=== PATIENT | female | born 1945 | race Caucasian/White ===

== ENCOUNTER 2022-08-26 17:19 | Inpatient (IN) | payer MEDICARE ==
[~2022-08-26] VITALS: Ht 152.4 cm; Wt 92.1 kg
[2022-08-26] MEDS ORDERED: OXYCODONE HCL5 MG PO (17:40)
[2022-08-26] MEDS ORDERED: TORSEMIDE20 MG PO (17:42)
[2022-08-26] MEDS ORDERED: PREGABALIN100 MG PO (17:42)
[2022-08-26] MEDS ORDERED: MIRTAZAPINE15 MG PO (17:42)
[2022-08-26] MEDS ORDERED: POTASSIUM CHLO20 ME2 PO (17:43)
[2022-08-26] MEDS ORDERED: ARIPIPRAZOLE2 MG PO (17:43)
[2022-08-26] MEDS ORDERED: MELOXICAM15 MG PO (17:43)
[2022-08-26] MEDS ORDERED: VENLAFAXINE HC150 MG PO (17:43)
--- NOTE | 2022-08-26 23:03 | EKG ---
[facility] [address] [facility] [place] [address] Signed Normal sinus rhythm with sinus arrhythmia Normal ECG No previous ECGs available Confirmed by Lorena Holland MD () on 08/26/2022 11:03:22 PM Electronically Signed By: LORENA HOLLAND MD 08/26/222302 PATIENT NAME: MELODY COSME Electrocardiogram DATE OF : 47 PHYSICIAN: LORENA HOLLAND MD REPORT #: [id number] REPORT IS CONFIDENTIAL AND NOT TO BE RELEASED WITHOUT AUTHORIZATION
--- NOTE | 2022-08-26 23:45 | NUR ---
PT BROUGHT TO ROOM VIA STRETCHER BY BO REYES. BO KRUSE IN ROOM TO DOCUMENT QUICK ADMIT AND ASSIST WITH MOVING PT FROM STRETCHER TO BED. PT ARRIVED ON 2L NC WITH O2 SATS AT 95%. 08/27/22 0045 ASSESSMENT COMPLETE. LUNG SOUNDS CLEAR IN KRYSTINA. RUL AND RLL CRACKLES. DIMINISHED IN RLL AND LLL. BOWEL TONES ACTIVE. PT REPORTS PAIN 10/10 IN LEFT LEG STATES "LEG IS NUMB." PRN TYLENOL ADMINISTERED. TYLENOL GIVEN 1 AT A TIME AND PT SPIT OUT THE FIRST TYLENOL AND STATED "I CANNOT SWALLOW THAT." CRUSHED TYLENOL AND ADMINISTERED IN APPLE SAUCE. PT O2 SATS DROPPED TO 89%. INCREASED O2 TO 4L NC AND PTs O2 SATS INCREASE TO 94%. PT STATES "I DO NOT KNOW" WHEN ASKED WHAT MONTH IT IS. PT REPORTS NEEDING TO USE RESTROOM, BED JAQUEZ PLACED UNDER PT. PT EDUCATED ON BED JAQUEZ AND TOLD SHE CAN PEE ON THE BED JAQUEZ. PT CONTINUES TO STATE "I NEED TO GET UP AND GO TO THE BATHROOM," CONTINUED TO EDUCATE PT ON BED JAQUEZ AND THAT IT IS OKAY TO PEE IN THE BED JAQUEZ. PT DOES NOT VOID, BED JAQUEZ REMOVED. ATTENDS PLACED. REDNESS NOTED TO GROIN AND UNDER PANUS. PRN MELATONIN ADMINISTERED, CRUSHED IN APPLE SAUCE, SEE NOV. TELE 2 ON PT FOR CONTINUOUS PULSE OX. NO OTHER NEEDS IDENTIFIED AT THIS TIME. CALL LIGHT IN REACH. EDUCATION NUMERICAL ANALYSIS GROUP MANAGER LIGHT USE PROVIDED, PT DEMONSTRATES UNDERSTANDING. BED ALARM ON.
--- NOTE | 2022-08-27 00:16 | NUR ---
pt ARRIVES TO MS FLOOR VIA STRETCHER. AIRBORNE PRECUATIONS IN PLACE. pt ON 2L OXYGEN BY NC, TITRATED TO 3L OXYGEN TO MAINTAIN SATURATIONS >92%. pt CONFUSED. KEEPS QUESTIONING RNS "I DON'T KNOW WHAT YOU NEED ME TO DO". ASSISTED TO BED JAQUEZ FOR VOID, pt UNABLE TO VOID. FREQUENT REMINDERS THAT pt IS ON BED JAQUEZ. PRIMARY RN VIOLETA IN ROOM ASSESSING pt. pt SHAKING, HOLDING LEFT LEG, THIGH AREA, STATES "MY LEGS HURT SO BAD". UPDATED, NEW ORDERS RECEIVED AND REPEATED BACK TO VERIFY. BED ALARM ON FOR SAFETY.
--- NOTE | 2022-08-27 02:19 | NUR ---
SPO2 NOTED AT 80% ON TELE 2 CPOX. pt HAS OXYGEN OFF AT THIS TIME, 4L NC REAPPLIED. RT IN pt ROOM ADHERING NC. pt REPOSITIONED WITH 2PA HIGHER IN BED, PILLOW UNDER LEFT HIP. pt HAS NO C/O PAIN AT THIS TIME. DRINK OF WATER PROVIDED. CALL LIGHT IN REACH. BED ALARM ON.
--- NOTE | 2022-08-27 05:35 | NUR ---
IN ROOM TO ROUND ON PT. UPON ENTERING ROOM PTs NC IS OFF. NC PLACED BACK ON PT. O2 SATS AT 96%. LAB IN ROOM WITH PT DRAWING BLOOD. PT STATES "I NEED TO THROW UP." EMESIS BAG PROVIDED FOR PT. PRN ZOFRAN ADMINISTERED, SEE MAR. PT SHAKING, WARM BLANKETS PROVIDED. VITALS COMPLETE. NO URINE OUTPUT NOTED. BLADDER SCAN SHOWED 583ML. PT REPORTS NO OTHER NEEDS AT THIS TIME. CALL LIGHT IN REACH. BED ALARM ON.
--- NOTE | 2022-08-27 05:50 | NUR ---
THIS RN CALLED DR. HOLLAND TO NOTIFY OF PT NOT HAVING ANY URINE OUTPUT SINCE ARRIVING TO UNIT. NEW ORDERS RECEIVED. VERIFIED WITH READBACK.
--- NOTE | 2022-08-27 06:15 | NUR ---
IN WITH BO WILEY TO PLACE CRUZ. DORCAS LORA IN TO ASSIST. BO WILEY USED STERILE TECHNIQUE TO PLACE CRUZ. FIRST ATTEMPT DID NOT GO INTO THE BLADDER. LEFT CRUZ TO VISULAIZE FOR SECOND CRUZ ATTEMPT. BO WILEY AGAIN USED STERILE TECHNIQUE AND SUCCESSFULLY PLACED CRUZ CATHETER. FIRST CRUZ REMOVED. WIPES TO CLEAN AREA AFTER PLACEMENT. NO OTHER NEEDS FROM THIS RN. BO WILEY AND DORCAS LORA IN ROOM WITH PT CLEANING UP.
--- NOTE | 2022-08-27 08:30 | NUR ---
PT RESTING IN BED WITH EYES CLOSED. RESPIRATIONS EVEN AND UNOLABORED. 4L NC O2 , O2 SAT 95%. CALL LIGHT IN REACH, BED ALARM ON.
--- NOTE | 2022-08-27 08:31 | NUR ---
PT RESTING IN BED WITH EYES CLOSED, RESPIRATIONS EVEN AND UNLABORED. O2 4L NC, O2 SAT 99%. CALL LIGHT IN REACH. BED ALARM ON.
--- NOTE | 2022-08-27 09:28 | NUR ---
MORNING ASSESSMENT COMPLETE. PT LYING AWAKE IN BED, UNABLE TO FOLLOW INSTURCTIONS TO SIT UP IN BED. PT ORIENTED TO FIRST NAME ONLY. FORGETFUL. PT TAKE O2 NC OUT OF NOSE, NEEDS CONTINUED REINFORCEMENT AND EDUCATION. SHAISTA HEARD AT LUNG BASES, PT ON 4LNC O2 SAT 92%, TITRATED TO 3L O2 SAT TO 88%, BACK UP TO 4L. CRUZ DRAINING CLEAR YELLOW URINE. PT DENIES PAIN OR NEEDS AT THIS TIME. CALL LIGHT IN REACH, INSTRUCTED ON USE. BED ALARM ON.
--- NOTE | 2022-08-27 11:15 | NUR ---
Pt states she lives in a house, but is unable to remember her address. She states she uses a walker and has steps but is unsure of how many. She does not recognizer her emergency contact, Janet's name, but states her nephew is Richard. Per nephew pt is weak and normally does well on her own. She is confused and not been able to care for herself due to covid. Nephew is also ill with the flu. No plan for dc of this pt at this time. Will fu with pt to determine needs when she is more cognitive.
--- NOTE | 2022-08-27 11:44 | NUR ---
PT AWAKE IN BED. O2 SAT 97% ON 4L NC. PT DENIES NEEDS AT THIS TIME. CALL LIGHT IN REACH. BED ALARM ON.
--- NOTE | 2022-08-27 12:45 | NUR ---
PT SITTING UP IN BED, EATING LUNCH. TOOK O2 OFF, O2 SAT 87%. O2 ON AT 4L NC, O2 SAT 95%. REMINDED PT TO KEEP O2 ON. CALL LIGHT IN REACH. BED ALARM ON.
--- NOTE | 2022-08-27 15:35 | NUR ---
PT CONTINUES TO BE ORIENTED TO FIRST NAME ONLY. PT UNABLE TO FOLLOW CONVERSATION. CRACKLES HEARD IN LUNG BASES. PT REMAINS ON 4L NC, O2 SAT 92%. CALL LIGHT IN REACH. BED ALARM ON.
--- NOTE | 2022-08-27 19:15 | NUR ---
RECEIVED REPORT FROM KAITLIN SORIANO. PT RESTING IN BED W/EYES CLOSED RESPIRATIONS ARE EVEN AND UNLABORED. PT RECEIVING 3 L O2 VIA NC. NO SIGNS OF DISTRESS. CALL LIGHT WITHIN REACH.
--- NOTE | 2022-08-27 19:30 | NUR ---
IN PT ROOM D/T REMOVAL OF NC. REPOSITIONED IN PT NOSE. REORIENTED PT TO LOCATION, EVENT. PT STATES VERBAL UNDERSTANDING. CALL LIGHT WITHIN REACH.
--- NOTE | 2022-08-27 20:02 | NUR ---
IN PT ROOM D/T REMOVAL OF NASAL CANNULA. REORIENTED PT TO LOCATION AND EVENT AND REASON FOR O2 NEED. PT STATED VERBAL UNDERSTANDING. CALL LIGHT WITHIN REACH.
--- NOTE | 2022-08-27 22:00 | NUR ---
CALLED MD TO UPDATE ON RESTLESS, AGITATION, AND ANXIETY OF PT D/T O2 DELIVERY DEVICE AND NOT TOLERATING OXIMASK OR NC AT THIS TIME. PT REFUSES TO EVEN DO BLOW BY METHOD. PT STATES "I JUST CANT, I JUST CANT!". MD PUT IN NEW ORDERS.
--- NOTE | 2022-08-27 22:30 | NUR ---
pt IS BECOMING MORE RESTLESS AND ATTEMPTING TO GET OOB, BED ALARM REMAINS ON FOR SAFETY. pt ALSO KEEPS REMOVING HER NASAL CANNULA AND DESATS INTO THE LOW 80'S ON RA. PRIMARY RN EL ALREADY ON PHONE AND UPDATING MD. PRN ATIVAN GIVEN PER REQUEST OF PRIMARY RN, 0.5MG GIVEN-SEE EMAR. DOSE AND MED VERIFIED BY SECOND RN MIRIAM. IV SITE WNL. BED ALARM REMAINS ON FOR SAFETY AND CALL LIGHT IN REACH. BEDSIDE CPOX ALSO REMAINS IN PLACE. SPO2 LOW TO MID 90'S, HR WNL. pt IS BECOMING MORE RELAXED. WILL CONTINUE TO MONITOR, CALL LIGHT IN REACH. pt REMAINS IN VIEW OF RN STATION.
--- NOTE | 2022-08-28 00:16 | NUR ---
pt RESTING IN BED, EYES CLOSED. RR EVEN AND UNLABORED, NO DISTRESS NOTED. 3LNC REMAINS IN PLACE. BED ALARM ON AND CALL LIGHT IN REACH. pt REMAINS IN VIEW OF RN STATION.
--- NOTE | 2022-08-28 01:15 | NUR ---
PT RESTING W/EYES CLOSED. RESPIRATIONS ARE EVEN AND UNLABORED, NO SIGNS OF DISTRESS. CALL LIGHT WITHIN REACH, BED ALARM ON. 3L OF NC OF O2, PT TOLERATING WELL AT THIS TIME.
--- NOTE | 2022-08-28 03:30 | NUR ---
IN PT ROOM D/T CPOX ALARMING FROM REMOVAL OF NC. PT DOES NOT TOLERATE NC OR OXIMASK. HAND PUSHED AWAY EVEN USING BLOW BY METHOD. PT STATES "I JUST CAN'T". PT CONTINUES TO REMOVE NC AND SHAKE HEAD WHEN TRYING TO REPLACE. PRN ATIVAN ADMINISTERED AT THIS TIME (SEE EMAR). IV SITE WNL. NO ACUTE CHANGES FROM PREVIOUS ASSESSMENT. LUNGS ARE DIM THROUGHOUT WITH CRACKLES HEARD IN LOWER LOBES BILAT AND RUL. KRYSTINA IS CLEAR. PT REPORTS NO PAIN, NAUSEA, DIZZINESS, SOB AT THIS TIME. PILLOWS PLACED UNDER HIPS BILAT FOR FLOATING. CALL LIGHT WITHIN REACH. CPOX IN PLACE. NC IN PLACE DELIVERING O2 AT 3L W/ O2 SATS AT 91%.
--- NOTE | 2022-08-28 05:10 | NUR ---
PT RESTING W/EYES CLOSED. RESPIRATIONS ARE EVEN AND UNLABORED, NO SIGNS OF DISTRESS. CALL LIGHT WITHIN REACH. 3L NC IN PLACE. CPOX IN PLACE. PT APPEARS COMFORTABLE AT THIS TIME.
--- NOTE | 2022-08-28 07:15 | NUR ---
pt ATTEMPTING TO CRAWL OOB AND REFUSES TO LEAVE O2 NC IN PLACE, THIS RN ATTEMPTED TO REDIRECT AND REORIENT pt MULTIPLE TIMES. PRN ATIVAN- 0.5MG IV GIVEN, SEE EMAR. BED ALARM ON AND CALL LIGHT IN REACH. pt REMAINS AT RN STATION. IV SITE WNL. MED AND DOSE VERIFIED WITH SECOND RN RUSSELL.
--- NOTE | 2022-08-28 07:30 | NUR ---
PT. CONTINUES TO BE RESTLESS AND CONSTANTLY REMOVING O2 NC. O2 SAT DROPS TO 82% ON RA. TITRATED ATIVAN DOSE. CPOX IN PLACE. BED ALARM ON AND CURTAIN OPEN.
--- NOTE | 2022-08-28 10:49 | NUR ---
PT. IS UP IN THE CHAIR WITH ALARM ON. CONTINUES TO REMOVE OXYMASK FREQUENTLY. CPOX IN PLACE AND O2 SAT IS 91% AT THIS TIME. WILL CONTIUE TO MONITOR.
--- NOTE | 2022-08-28 15:00 | NUR ---
THIS NURSE IN THE ROOM SEVERAL TIMES TO ASSIST PT. WITH O2 MASK. SHE REFUSES TO WEAR MASK AND IS RESTLESS. INCREASED EXPRESSIVE APHASIA. NIH STROKE ASSESSMENT COMPLETED AND BLOOD GLUCOSE OF 123. CALLED AND UPDATED. NEW LAB AND CT ORDERED. WILL CONTINUE TO MONITOR.
--- NOTE | 2022-08-28 18:11 | NUR ---
THIS RN TO ROOM TO ASSIST WITH IV START. IV STARTED TO RIGHT FORARM PER PROTOCOL. BLOOD RETURN NOTED, FLUSHES WELL. IV INFUSION RESTARTED BY CHIRAG RN, SEE NOV. PT TOLERATED PROCEEDURE WELL. PTS PRIMARY RN UPDATED. NO ADDITIONAL NEEDS AT THIS TIME. CALL LIGHT WITHIN REACH. BED RAILS UP. BED ALARM ON.
--- NOTE | 2022-08-28 19:51 | NUR ---
Pt ARRIVED TO UNIT FROM MS UNIT. PT IS CONFUSED. OXYMASK ON 8L SPO2 96%. HR 112 AFIB. BED ALARMS ON.
--- NOTE | 2022-08-28 22:03 | NUR ---
PT READJUSTED IN BED. CONTINUES TO BE ANXIOUS AND REMOVES OXYMASK. BED ALARM ON.
--- NOTE | 2022-08-28 22:12 | EKG ---
[facility] [address] [facility] [place] [address] Signed Atrial fibrillation with rapid ventricular response Low voltage QRS Nonspecific ST and T wave abnormality Abnormal ECG When compared with ECG of 26-AUG-2022 17:45, Atrial fibrillation has replaced Sinus rhythm Nonspecific T wave abnormality, worse in Inferior leads Nonspecific T wave abnormality now evident in Lateral leads Confirmed by Lorena Holland MD () on 08/28/2022 10:12:03 PM Electronically Signed By: LORENA HOLLAND MD 08/28/222211 PATIENT NAME: MELODY COSME Electrocardiogram DATE OF : 47 PHYSICIAN: LORENA HOLLAND MD REPORT #: [id number] REPORT IS CONFIDENTIAL AND NOT TO BE RELEASED WITHOUT AUTHORIZATION
--- NOTE | 2022-08-28 22:51 | NUR ---
PT AGITATED AND RESTLESS. TELE LEADS AND OXYGEN PULLED OFF. CRUZ STAT LOCK HAD BEEN PULLED OFF. LEADS, O2, AND STAT LOCK REAPPLIED. PT REPOSITIONED IN BED.
--- NOTE | 2022-08-28 23:40 | NUR ---
PT ASSESSEMENT COMPLETED. PT IS AGITATED/ANXIOUS PRN ATIVAN GIVEN. REPOSTIONED IN BED. CONINUTES TO PULL OFF ALL LINES AND OXYGEN. REQUIES FREQUENT REDIRECTING AND REORIENTATION.
--- NOTE | 2022-08-29 01:15 | NUR ---
ROUNDED ON PT. APPEARS TO BE SLEEPING COMFORTABLY. RESTING HR 75-85. CURRENTLY ON RA SPO2 97%. BED ALARMS ON. CALL LIGHT WITHIN REACH.
--- NOTE | 2022-08-29 01:59 | NUR ---
PT RESTLESS, AGITATED, PULLING HER GOWN OFF AND RESTLESS IN BED PULLING ON HER ECG LEADS AND PULLING OFF OXYGEN, SHE GRIPPED HER GOWN AND WOULD NOT LET GO PULLING AT STAFF. PT HEART RATE UP TO 154 BEATS A MINUTE, LOPRESSOR SCHEDULED ADMINISTERED AND 1MG IV HALDOL ADMINISTERED. HR NOW 94/MIN.
--- NOTE | 2022-08-29 02:27 | NUR ---
TO PT ROOM FOR AGITATION AND AXIETY. PT IS PULLING LEADS AND OXYGEN OFF. PT READJUSTED IN BED. ADMINISTERED PRN PAIN MEDICATION.
--- NOTE | 2022-08-29 02:52 | NUR ---
PT AGITATED PULLING LINES AND OXYGEN OFF. READJUSTED IN BED. GOWN CHANGED. LINES AND OXYGEN REAPPLIED.
--- NOTE | 2022-08-29 03:51 | NUR ---
PT ASSESSMENT COMPLETED. PT CONTINUES TO BE CONFUSED AND ANXIOUS. REQUIRES CONTINUOUS REORIENTATION AND REAPPLYING OXYGEN AND LEADS.
--- NOTE | 2022-08-29 04:14 | NUR ---
PRN ATIVAN GIVEN FOR AGITATION/ANXIETY. REPOSITIONED IN BED. LINES READJUSTED.
--- NOTE | 2022-08-29 04:30 | NUR ---
NOTIFIED OF PT CONTINUED AGITATION AND CONFUSION OVER NIGHT AND PT W/O SLEEP. HOME MEDICATIONS WERE DISCUSSED AND VO GIVEN TO ADD THREE OF HER HOME PO MEDICATIONS. REMERON AND EFFEXOR GIVEN. NEENA HELD ATT DUE TO AVAILABILITY OF DOSE PER PHARMACY.
--- NOTE | 2022-08-29 08:07 | NUR ---
ASSESSMENT COMPLETED, ALL LEADS AND MONITORS PLACED BACK ON PT AT THIS TIME. DR CAME INTO SEE PT
--- NOTE | 2022-08-29 08:30 | NUR ---
PT HAS SETTLED DOWN AT THIS TIME, BUT AT TIMES SHE WILL PULL ALL MONITORS OFF. CURRENTLY SHE APPEARS TO BE RESTING SPO2 95%. STILL UNABLE TO OBTAIN A BP ON HER DUE TO SHE WILL PULL THE CUFF OFF. REMAINS IN ISOLATION DUE TO COVID+.
--- NOTE | 2022-08-29 09:35 | NUR ---
o2 decreased to 45l's via oxy mask. catheter care completed.
--- NOTE | 2022-08-29 14:48 | NUR ---
pt contioues to sleep and rest comfotable at this time. Precedex drip decreased to 0.1mcg/kg/hr at this time. due to pt's heart rate is in the 60's to 70's. spo2 pp% via 5l's om.
--- NOTE | 2022-08-29 16:46 | NUR ---
PT REMAINS ON PRECEDEX DRIP AWAKENS WHEN MOVED ABOUT THE BED, REMAIN I A-FIB FOR AT THIS TIME, BUT IS RATE CONTTROLED. SPO2 96% ON 5L'S OXYMASK. PT WAS REMOSITIONED TO HER BACK AND FRESH DRAWEL SHEET AND WHITE PADS PLACED. PT WAS PROVIDED 2 WARM BLANKETS, AND REMAINS WITHOUT A PT GORWN ON DUE TO SHE PULLS AT THEM. CRUZ CATHETER REMAINS INPLACE DRAINING YELLOW IN COLOR URINE.
--- NOTE | 2022-08-29 17:53 | NUR ---
PT REMAINS ASLEEP AT THIS TIME, AWAKENS WHEN SPOKEN TWO OPENS EYES, THEN CLOSES THEM.
--- NOTE | 2022-08-29 18:18 | NUR ---
PT IS RESTLESS AND PULLING OFF HER MONITOR LEADS AT THIS TIME, HAS OXYMASK ON FORHEAD AT THIS TIME. PRECEDEX DRIP INCREASED TO 0.2MCG/KG/HR.
--- NOTE | 2022-08-29 18:34 | NUR ---
pt awake, gave some ensure at this time. she pulled all of the leads of and then commercial real estate underwriter reattached them.
--- NOTE | 2022-08-29 19:11 | NUR ---
pt woke up and was pulling off all leads and climbing out of bed. two staff in room haldol 1mg ivp given, 1mg ativan ivp given and precedex drip increased to 0.3mcg/kg/hr. pt was also given her pain pill 5mg oxy. pt took meds with pudding and did chew her meds. pt settled down and leads, o2 remain in place at this time. spo2 96% oxymask 5l's hear rate increased to the 140's when she was trying to climb out of bed so gave her 20:00 does of lopressor 5mg ivp alana and hear rate decreased to the high 80's tonja in a-fib
--- NOTE | 2022-08-29 19:38 | NUR ---
PT RESTOMG COMFORTABLY IN BED WITH A RASS OF -2. BED ALARM SET, AND NURSE CALL LIGHT PLACED BY PATIENT. PT WITH NORMAL WORK OF BREATHING AND COMPLAINT WITH OXYGEN. V/S REASSESSED, PT WITH WITH CONTINUED A-FIB. RATE IN THE 50S.
--- NOTE | 2022-08-29 23:12 | NUR ---
PT RESTING COMFORTABILY IN BED WITH A RASS OF -2. O2 DEMANDS UNCHANGED.
--- NOTE | 2022-08-30 07:30 | NUR ---
SHIFT REPORT REEIVED FROM TATO SORIANO. PT RESTING IN BED, EYES CLOSED. RR EVEN, UNLABORED. PRECEDEX @ 0.3 MCG/KG/HR. CPOX 92% ON 5L OXYMASK. HR AFIB @ 70. CRUZ WNL. RAILS UP, BED ALARM ON, CALL LIGHT IN REACH.
--- NOTE | 2022-08-30 08:00 | NUR ---
SCHEDULED MEDS PROVIDED. NO OTHER NEEDS AT THIS TIME. CALL LIGHT IN REACH, RAILS UP, BED ALARM ON.
--- NOTE | 2022-08-30 09:08 | NUR ---
ASSESSMENT, VS AND I&O COMPLETED. PT WAKES TO VOICE, IS CONFUSED, SLOW TO RESPOND. DISORIENTED TO ALL BUT FOLLOWS SOME COMMANDS. LUNGS DIM IN LOWER LOBES AND CRACKLES IN UPPER LOBES. PT HAS AN OCCASSIONAL, NONPRODUCTIVE COUGH. PT TAKES ORAL MEDS WITH PUDDING THEN CHEWS THE MED. ABD SOFT, NONTENDER, BOWEL TONES ACTIVE. ORAL FLUIDS PROVIDED WITHOUT STRAW, 50CC WATER. UPPER EXTREMTIIES CMS INTACT, LOWER EXTREMITIES HAVE WEAKNESS, PULSE AND SENSORY INTACT. TRACE BLE EDEMA NOTED. SKIN WARM, DRY, APPROPRIATE COLOR, SCATTERED BRUISING. LEFT ARM IVs WNL, CDI, FLUSHED WELL. HEART TONES IRREGULAR, AFIB @ 70. SPO2 95% ON 5L OXYMASK, PT PULLS MASK DOWN ONTO MOUTH AT TIMES. NO OTHER NEEDS AT THIS TIME. RAILS UP, BED ALARM ON, CALL LIGHT IN REACH.
--- NOTE | 2022-08-30 10:16 | NUR ---
PT HAS PULLED OXYMASK OFF, REPLACED BY MELCHOR SORIANO. PT RESTING IN BED, EYES CLOSED. RR EVEN, UNLABORED. SPO2 96% ON 5L OXYMASK. HR AFIB @ 76. NO OTHER NEEDS AT THIS TIME. CALL LIGHT IN REACH.
--- NOTE | 2022-08-30 11:08 | NUR ---
PT RESTING IN BED, EYES CLOSED. PT WAKES TO VOICE. PT DRANK 40ML WATER. ORAL CARE PROVIDED. PRECEDEX AT 0.3MCG/KG/HR. NANCY DOMÍNGUEZ. HR AFIB @ 66. SPO2 95% ON 5L OXYMASK. CALL LIGHT IN REACH, BED ALARM ON, RAILS UP.
--- NOTE | 2022-08-30 11:22 | NUR ---
PT PRECEDEX TITRATED DOWN TO 0.2MCG/KG/HR. PT STILL MOVED OXYMASK DOWN BUT IS LEAVING OTHER DEVICES INTACT AT THIS TIME. PT WAKES TO VOICE. SLOW TO REPOSOND. NO OTHER NEEDS AT THIS TIME. CALL LIGHT IN REAC, BED ALARM ON, RAILS UP.
--- NOTE | 2022-08-30 11:47 | NUR ---
PT ON 0.2MCG/KG/HOUR, PULLING OFF OXYMASK, SPO2 DROPPING IN TO THE MID 80s. PT PULLING OFF ECG LEADS AND TRYING TO GET OUT OF BED. PRECEDEX TITRATED TO 0.3MCG/KG/HR. PT RELAXED, OXYMASK ON, SPO2 UP TO 95% ON 4L. CRUZ CARE PROVIDED. WATER PROVIDED. NEW BOTTLE OF PRECEDEX PROVIDED. NO OTHER NEEDS AT THIS TIME. CALL LIGHT IN REACH, BED ALARM ON, RAILS UP.
--- NOTE | 2022-08-30 12:14 | NUR ---
PT CONTINUES TO REMOVE OXYMASK, CHANGED TO NC @ 4L. PT CURRENTLY TOLERATING. ASSESSMENT, VS AND I&O COMPLETED. PT REPOSITIONED. PT DISORIENTED TO ALL BUT ANSWERS "YES" TO THE QUESTION OF IF SHE IS COLD, BLANKETS PROVIDED. LUNGS HAVE CRACKLES IN UPPER LOBES AND DIM IN LOWER LONES, OCCASSIONAL NONPRODUCTIVE COUGH. ORAL FLUIDS PROVIDED UNTIL PT REFUSES MORE. PT DECLINES ENSURE DRINK. EDUCATION PROVIDED CONCERNING ILLNESS AND NEED FOR MONITORING AND O2, PT LOOKS AT RN BUT DOES NOT VERBALIZE UNDERSTANDING. IVs WNL. NO OTHER NEEDS AT THIS TIME. CALL LIGHT IN REACH.
--- NOTE | 2022-08-30 12:58 | NUR ---
PT WOKE AGGITATED, CONFUSED AND FEARFUL. PT REFUSING TO WEAR NC, PLACED BACK ON OXY MASK, PT PULLING MASK OFF, NOT REDIRECTABLE. PT PULLING AT STAFF AND ATTEMPTING TO GET OUT OF BED, PULL CORDS AND IV LINES. PRECEDEX TITRATED TO 0.4MCG/KG/HR, O2 5L OXY MASK. STILL ATTEMPTING TO REDIRECT. PT STATES "WHAT?" TO HER NAME BUT WILL NOT STATE HER NEEDS AT THIS TIME. PT BEGINS TO RELAX AND STOPS PULLING AT LINES, CORDS AND RAILS. HR GOES FROM 99 TO 70. PT RESTING IN BED AT THIS TIME. BED ALARMS ON, RAILS UP CALL LIGHT IN REACH.
--- NOTE | 2022-08-30 13:50 | NUR ---
PT BECAME VERY AGGITATED, REFUSING OXYMASK, PULLING CORDS, ATTEMPTING TO PULL CRUZ. PT UNABLE TO ANSWER IF SHE IS IN PAIN, PRN PAIN MED PROVIDED. PRECEDEX TITRATED TO 0.4MCG/KG/HR WITHOUT CHANGES. PRN ATIVAN PROVIDED. PT BEGAN TO RELAX AND WAS ABLE TO TOLERATE OXYMASK AT 5L. PT HR BECAME ELEVATED INTO THE 160s DURING THE EPISODE AND DROPPED TO 80s ONCE PT BECAME CALM WITH THE MEDICATIONS. NO OTHER NEEDS AT THIS TIME. CALL LIGHT IN REACH, RAILS UP, BED ALARM ON.
--- NOTE | 2022-08-30 14:30 | NUR ---
PT TAKING OFF OXYMASK, REDIRECTED SEVERAL TIMES. REPOSITIONED. IVs WNL. PT MOVED TO ROOM 128 FOR CLOSER OBSERVATION.
--- NOTE | 2022-08-30 15:11 | NUR ---
PT RESTING IN BED, EYES CLOSED. RR EVEN, UNLABORED. SPO2 93& ON 5L OXYMASK. HR AFIB @84. PT DECLINES ORAL FLUIDS AT THIS TIME. CALL LIGHT IN REACH. RAILS UP, BED ALARM ON, CALL LIGHT IN REACH.
--- NOTE | 2022-08-30 16:20 | NUR ---
ASSESSMENT, VS AND I&O COMPLETED. PT RESTING IN BED, WAKES TO VOICE. PT STARTS TAKING OXYMASK OFF SOON SHE WAKES, REDIRECTED UNTIL PT CALMS AND FALLS BACK TO SLEEP. SCHEDULED MEDS PROVIDED. CRUZ CARE PROVIDED. NO OTHER NEEDS. CALL LIGHT IN REACH, BED ALARM ON, RAILS UP, CURTAIN OPEN.
--- NOTE | 2022-08-30 17:15 | NUR ---
PT RESTING IN BED, EYES CLOSED. RR EVEN, UNLABORED. HR AFIB @76. PRECEDEX AT 0.5MCG/KG/HR AND OXYMASK @5L, SPO2 95%. CALL LIGHT IN REACH, BED ALARM ON, RAILS UP, CURTAIN OPEN.
--- NOTE | 2022-08-30 17:57 | NUR ---
SPO2 DROPPING, PT HAS PULLED OXYMASK OFF, REPLACED, PT TAKES OFF. PT DOES NOT ANSWER ORIENTATION QUESTIONS AND IF TRYING TO GET OUT OF BED. PT REPOSITIONED TO UPRIGHT POSITION, OXYMASK APPLIED. PT BEGINS TO CALM. IV MEDS AND FLUIDS INFUSING PER ORDER. NO OTHER NEEDS AT THIS TIME. BED ALARM ON, RAILS UP, CALL LIGHT IN REACH.
--- NOTE | 2022-08-30 18:34 | NUR ---
PT WAKES TO VOICE, DECLINES ORAL FLUIDS. CRUZ WNL. IV FLUIDS AND MED INFUSING PER ORDER. OXYMASK 5L, SPO2 96%. IVs WNL. PT FALLS BACK TO SLEEP EASILY. CALL LIGHT IN REACH, BED ALARM ON, RAILS UP, CURTAIN OPEN.
--- NOTE | 2022-08-30 19:20 | NUR ---
PT ASSESSED AND FOUND TO BE RESTLESS IN BED. PT DOES FOLLOW COMMANDS AND IS WITH UNCOMPREHENSABLE SPEECH. PT IS NOTED TO MOVES ALL FOUR EXTREMITIES AND IS PULLING AT LINES/ TUBES. PRECEDEX GTT INCREASED. PT APPEARS TO BE UNCONFORTABLE. PRN ANALGESIA ADMINISTERED. PT LOCATED IN FRONT OF NURSES STATION. BED ALARM IS SET. ALARM/ PARAMETERS SAFETY CHECK PERFORMED.
--- NOTE | 2022-08-30 23:50 | NUR ---
PT RESTLESS, PULLED OFF LEADS. REPOSITIONED, PT MORE COMFORTABLE AND RESTING RELAXED.
--- NOTE | 2022-08-31 06:14 | NUR ---
PT CONTINUES TO BE ALTERED, DOES NOT FOLLOW COMMANDS AND REMAINS RESTLESS IN BED THROUGHOUT THE NIGHT. PT REMAINS ON O2 VIA OXY MASK AT 5 LPM. PT CONTINUES TO PULL O2 OFF AT TIMES CAUSIN PERIODS OF HYPXOIA AND A REDUCTION IN O2 SATURATIONS IN THE 80'S. PT HAS BEEN IN A-FIB, NORMOTENSIVE AND A-FEBRILE THROUGHOUT THE NIGHT. LS COURSE TO DIMINISHED IN THE BASIS. PT IS NOT PARTICIPATING IN BREATHING EXCERSISES AT THIS TIME. PT WITH ADEQUATE UO. PT CONTINUES TO REQUIRE SEDATION GTT AND PRN SEDATION. PT TURNED Q-2 HRS TO MAINTAIN SKIN INTEGRITY.
--- NOTE | 2022-08-31 07:30 | NUR ---
REPORT RECIEVED, CARE OF PT ASSUMED AT THIS TIME. PT HAS PRECEDEX DRIP INFUSING AT 0.7MG/KG/HR. RASS SCORE OF -3 AT THIS TIME. IV FLUIDS INFUSING. WILL CLOSELY MONITOR.
--- NOTE | 2022-08-31 08:30 | NUR ---
PATIENT RESTING IN BED. VITALS AND I&OS CHARTED. CRUZ EMPTIED. CALL LIGHT IN EASY REACH. BED ALARM ON FOR SAFETY
--- NOTE | 2022-08-31 10:43 | NUR ---
PT OPENS EYES TO VOICE. NODDING YES TO QUESTIONS. ORAL CARE PROVIDED. PT RASS SCORE REMAINS AT A -2. WILL CONTINUE TO CLOSELY MONITOR.
--- NOTE | 2022-08-31 12:28 | NUR ---
ASSESSMENT COMPLETED. PT GIVEN A BED BATH. PT REMAINS DROWSY BUT FOLLOWING SOME COMMANDS. NODS HEAD YES AND NO TO SOME QUESTIONS. LUNGS HAVE LESS CRACKLES IN THE BILATERAL BASES SINCE PT WAS SALINE LOCKED. PT REPOSITIONED IN BED. ALARM IN PLACE AND PT REMAINS VISIBLE FROM NURSES STATION. WILL CONTINUE TO MONITOR.
--- NOTE | 2022-08-31 13:03 | NUR ---
PT ABLE TO DRINK SOME WATER. NO ISSUES NOTED WITH SWALLOWING. PT REMAINS DISORIENTED. REDIRECTABLE WITH ONE TO ONE. BED ALARM IN PLACE. WILL CONTINUE TO MONITOR.
--- NOTE | 2022-08-31 14:10 | NUR ---
PT REPORTS A HEADACHE. PRN PAIN MEDICATION ADMINISTERED (SEE EMAR). PT PULLING AT OXYGEN TUBING. TELEMETRY DC'D AT THIS TIME TO MINIMIZE AGGITATION. BED ALARM IN PLACE, CALL LIGHT WITHIN REACH. WILL CONTINUE TO MONITOR.
--- NOTE | 2022-08-31 15:04 | NUR ---
ASSESSMENT COMPLETED. PT UP TO CHAIR WITH TWO PERSON ASSIST. PT APPEARS MORE COMFORTABLE IN CHAIR. NOT PULLING AT LEADS OR TAKING OF OXYGEN. CALL LIGHT WITHIN REACH AND PT IS VISIBLE FROM NURSES STATION.
--- NOTE | 2022-08-31 15:46 | NUR ---
PT PULLING OF OXYGEN. PRN HALDOL GIVEN (SEE EMAR). PT REPOSITIONED IN CHAIR FOR COMFORT AND GIVEN WATER. CALL LIGHT WITHIN REACH AND PT REMAINS VISIBLWE FROM NURSES STATION.
--- NOTE | 2022-08-31 16:48 | NUR ---
PT STATES "HELP ME, IT HURTS" PT UNABLE TO GET COMFORTABLE IN BED. DR MONTES UPDATED ORDERS RECEIVED (SEE EMAR). IV TORADOL GIVEN AT THIS TIME.
--- NOTE | 2022-08-31 17:02 | NUR ---
PT APPEARS MORE RESTFUL AT THIS TIME. IV ROCEPHIN INFUSING. REMAINS VISIBLE FROM NURSES STATION. CALL LIGHT WITHIN REACH. WILL CONTINUE TO MONITOR.
--- NOTE | 2022-08-31 18:22 | NUR ---
PT UP TO CHAIR WITH ONE PERSON ASSIST. PT REMAINS VISIBLE FROM NURSES STATION. REMAINS ON 4 L OM. CALL LIGHT WITHIN REACH. WILL CONTINUE TO MONITOR.
--- NOTE | 2022-08-31 19:50 | NUR ---
PT UP IN RECLINER AT THIS TIME, ATTEMPTING TO CRAWL OUT, THIS RN INTO ASSIST PT TO REPOSITION OR GET TO BED. PT SAID "YES" WHEN ASKED IF SHE WANTED TO GO TO BED TO STRETCH OUT. PT NOTED TO BE WEAK, Larisa ALCARAZ INTO ASSIST WITH TRANSFER, PT ABLE TO BARE HER WEIGHT, PT ASSISTED TO COMFORTABLE POSITION IN MED, SHE SAID, "HELP ME" THIS RN ASKED, "ARE YOU IN PAIN?" SHE SAID "YES." SHE IS NOTED TO BE RESTLESS/AGITATED AND TRYING TO PULL HERSELF UP ONTO BED RAIL. CONTINUED TO ATTEMPT TO ORIENT PT AND CONSOLE PT, SHE CONTIUES TO PULL AT BED RAIL.
--- NOTE | 2022-08-31 20:30 | NUR ---
PT ADMINISTERED OXYCODONE PRN FOR PAIN AT HER LOWER BACK, 5/10 NON-VERBAL PAIN SCALE, ALSO ADMINISTERED HALDOL TO ASSIST WITH AGITATION. V/S STABLE. ASSESSMENT COMPLETE. PT PROVIDED WARM BLANKET TO LOWER BACK TO ASSIST WITH PAIN.
--- NOTE | 2022-08-31 21:51 | NUR ---
PT CONTINUES TO BE RESTLESS, HR UP TO 150'S/MIN, LOPRESSOR ADMINISTERED, ATIVAN PRN 1MG IV ADMINISTERED. PT ALERT AND ANSERING QUESTIONS, INREGARDS TO PAIN, SHE SAID "YES" WILL MONITOR
--- NOTE | 2022-08-31 22:00 | NUR ---
AT NURSES STATION FOR UPDATE, REMINDED THAT PT DOES NOT HAVE ECG LEADS ON, SHE SAID SHE IS AWARE.
--- NOTE | 2022-08-31 23:34 | NUR ---
PT RESTING QUIETLY IN BED EYES CLOSED V/S STABLE, NO DISTRESS NOTED.
--- NOTE | 2022-09-01 02:03 | NUR ---
PT AWAKE AND ALERT. DRANK 200ML WATER AT THIS TIME. DSICUSSED PLAN OF CARE, HOSPITALIZATION, CURRENT ILLNESS AND LINE OF TREATMENT. PT COOPERATIVE WITH CARE. REPOSITIONED TO HER COMFORT AT THIS TIME.
--- NOTE | 2022-09-01 03:00 | NUR ---
PT SET OFF BED ALARMS, STRUGGLING TO GET OUT OF BED, PUSHING OXYMASK AWAY, ATTEMPTS TO REORIENT PT EFFECTIVE WHILE ENGAGED, SHE IS AGITATED WITH OXYMASK, AND RESTLESS, SHE ALSO REPORTS PAIN RAMACHANDRAN/BACK, OXYCODONE AND TORDOL ADMINISTERED WELL ATIVAN TO HELP CALM PT DOWN HER HEART RATE UP TO 145/MIN.
--- NOTE | 2022-09-01 03:37 | NUR ---
PT SET OFF BED ALARM, STAFF INTO ROOM, SHE SAID, "I WANT TO MOVE UP IN BED" CLEARLY. STAFF ASSISTED PT UP IN BED AND REPOSITIONED. SHE IS NOW RELAXED POSITION AND TOLERATING BLOW BY OXYMASK.
--- NOTE | 2022-09-01 05:30 | NUR ---
PT UP TO RECLINER TWO PERSON ASSIST, SHE TOLERATED WELL. PT COOPERATED AND FOLLOW DIRECTION.
--- NOTE | 2022-09-01 06:31 | NUR ---
PT ATTEMTING TO CRAWL OUT OF CHAIR NOT REDIRECTABLE AT THIS TIME, AGITATED, HALDOL 1MG IV PRN AT THIS TIME.
--- NOTE | 2022-09-01 07:30 | NUR ---
REPORT RECEIVED, CARE OF PT ASSUMED AT THIS TIME. PT SITTING UP IN CHAIR. OXYMASK ON AT 4 L SPO2 = 94%. PT VISIBLE FROM NURSES STATION.
--- NOTE | 2022-09-01 08:15 | NUR ---
ASSESSMENT COMPLETED. PT SITTING UP IN CHAIR. ABLE TO TAKE ORAL MEDICATIONS. DIESEL ENGINE MECHANIC APPRENTICE IN ROOM HELPING PT SWALLOW. PT HEART RATE IN THE 120S. METOPROLOL ADMINISTERED. PT ON 4 L OM, SPO2 IN THE MID 90S. PT REPORTS PAIN, PRN MEDICATION GIVEN. PLAN FOR DAY ESTABLISHED. CALL LIGHT WITHIN REACH. WILL CONTINUE TO MONITOR.
--- NOTE | 2022-09-01 08:40 | NUR ---
PT ASSISTED BACK TO BED, HARD TIME FOLLOWING COMMANDS. NOW RESTING IN BED. ALARM IN PLACE AND PT REMAINS VISIBLE FROM THE NURSES STATION.
--- NOTE | 2022-09-01 08:40 | NUR ---
PATIENT SITTING UP IN CHAIR, THIS TRADE MANAGER IN TO ASSIST WITH BREAKFAST. PATIENT ATE FEW BITES AND CONTINUED TO TRY AND GET OUT OF CHAIR "CAN YOU HELP ME GET OUT OF HERE?" BEDBATH PROVIDED, NEW GOWN AND LINEN PROVIDED. PATIENT IN BED AT THIS TIME, OXY MASK IN PLACE. BED ALARM ON FOR SAFETY. CALL LIGHT IN EAY REACH
--- NOTE | 2022-09-01 09:46 | NUR ---
PT RESTING IN BED. OCCASIONALLY PULLING OFF OXYGEN. REDIRECTABLE. VISIBLE FROM NURSES STATION. CALL LIGHT WITHIN REACH. WILL CONTINUE TO MONITOR.
--- NOTE | 2022-09-01 11:09 | NUR ---
ASSESSMENT COMPLETED. PT REMAINS CONFUSED BUT REDIRECTABLE. PT NOW ABLE TO SPEAK IN FULL SENTENCES. ON 2.5 L NC WITH SPO2=93%. HEART RATE IN THE 90-100 AT REST. PRN PAIN MEDICATION TO BE ADMINISTERED AT THIS TIME AND PT ASSISTED UP TO CHAIR. CALL LIGHT WITHIN REACH AND REMAINS VISIBLE FROM NURSES STATION.
--- NOTE | 2022-09-01 11:20 | NUR ---
Spoke with nurses, pt cont.with difficulty to answer any questions. Family have visited, staff will call me when family comes in to work on plan for this pt. Emergency contact Janet is not answering her phone. Message left.
--- NOTE | 2022-09-01 14:26 | NUR ---
ASSISTED PT FROM CHAIR TO BED. REMAINS ON 2 L NC WITH SPO2 = 92 PERCENT. BED ALARM IN PLACE, WILL CONTINUE TO MONITOR.
--- NOTE | 2022-09-01 15:51 | NUR ---
DR MONTES IN TO ASSESS PT AT THIS TIME.
--- NOTE | 2022-09-01 16:18 | NUR ---
ASSESSMENT COMPLETED. PT GIVEN PRN HALDOL FOR AGGITATION. PT ATTEMPTING TO GET OUT OF BED AND KEEPING OXYGEN ON. REDIRECTED PT AND REPOSITIONED HER IN BED. NC AT 2L BACK IN PLACE. PT REMAINS VISIBLE FROM NURSE STATION. IV ROCEPHIN INFUSING. WILL CONTINUE TO MONITOR.
--- NOTE | 2022-09-01 17:07 | NUR ---
PT PULSE NOTED TO BE HIGH ON PULSE OXIMETRY. PLACED BACK ON THE TELEPHONE SERVICE REPRESENTATIVE AT THIS TIME. PT IN AFIB WITH RATES 130-150/ DR MONTES UPDATED VIA TELEPHONE. ORDER RECIEVED FOR A ONE TIME DOSE OF IV LOPRESSOR 5MG. ADMINISTERED AT THIS TIME. WILL CONTINUE TO CLOSELY MONITOR.
--- NOTE | 2022-09-01 17:29 | NUR ---
PT UP FROM BED TO CHIAR. PUT OXYGEN BACK IN PLACE AT THIS TIME. PT HEART RATE NOW AT 110 AT REST. SPO2 = 94% ON 4 L OM. PT REMAINS VISIBLE FROM NURSES STATION. WILL CONTINUE TO MONITOR.
--- NOTE | 2022-09-01 17:56 | NUR ---
PT HEART RATE 115- 130S WHILE SITTING IN THE CHAIR. HIGHER WITH MOVEMENT AND AGGITATION. DR MONTES UPDATED AT THIS TIME. PLAN ESTABLISHED INCREASE ORAL MEDICATION DOSE AND PRN IV LOPRESSER ADDED.
--- NOTE | 2022-09-01 18:17 | NUR ---
SECOND DOSE OF IV LOPRESSOR ADMINISTERED AT THIS TIME FOR HEART RATE SUSTAINED IN THE 140S (SEE EMAR).
--- NOTE | 2022-09-01 19:55 | NUR ---
Pt assessed and found to be restless, pulling at lines and removing oxygen. Pt is alert to self only. Pt unable to follow simple commands but is found moving all four extremities without problem. v/s assessed. Pt with RASS of 2. PRN ativan administered.
--- NOTE | 2022-09-01 21:05 | NUR ---
PT REASSESSED AND APPEARS MORE COMFORTABLE. PT TRANSFERRED TO BED WITH USE OF TWO PERSON ASSIST. BED ALARM SET, NURSE CALL LIGHT AT BEDSIDE AND PT WITH NO REQUEST AT THIS TIME.
--- NOTE | 2022-09-02 07:14 | NUR ---
PT REMAINS AWAKE, BUT CONFUSED X 4. PT FOLLOWS SIMPLE COMMANDS, HOWEVER, CONTINUES PULLING AT LINES AND TUBES. PT PULLED PIV. NEW PIV STARTED IN R. FOREARM. PT IS NON COMPLIANT WITH O2. PT EXPERIENCES REDUCED SATURATIONS IN THE HIGH 80S DURING TIMES OF NO OXYGEN. PRN ATIVAN ADMINISTERED X 2 WITH LITTLE IMPROVEMENT. PT HAS BEEN IN A-FIB WITH RATES BETWEEN 100 TO 130. PRN LOPRESSOR ADMINISTERED WITH NO CHANGES IN HR. PT REMAINS NORMOTENSIVE AND A-FEBRILE. PT WITH 500 CC UO THROUGHOUT THE NIGHT.
--- NOTE | 2022-09-02 07:30 | NUR ---
REPORT RECEIVED, CARE OF PT ASSUMED AT THIS TIME.
--- NOTE | 2022-09-02 08:00 | NUR ---
DR MONTES IN ROOM TO ASSESS PT. PLAN ESTABLISHED TO START IV FLUIDS. DR MONTES AWARE OF PT HEART RATE AND LOW URINE OUTPUT.
--- NOTE | 2022-09-02 08:00 | NUR ---
BEDBATH GIVEN, VITALS AND I&OS CHARTED. PATIENT ON BSC FOR POSSIBLE BM NEEDS. NO BM, PATIENT UP IN RECLINER FOR BREAKFAST. CRUZ EMPTIED AND LINEN CHANGED. CALL LIGHT IN REASY REACH.
--- NOTE | 2022-09-02 09:28 | NUR ---
ASSESSMENT COMPLETED. PT REMAINS DISORIENTED BUT ALERT. PT HAS POOR ORAL INTAKE BUT ABLE TO TAKE AM PILLS. IV LOPRESSOR GIVEN FOR HEART RATE IN THE 130. PTS SPO2 = 88% ON ROOM AIR. PLACED BACK ON 2 L NC. REPOSITIONED PT IN CHAIR. IV FLUIDS NOW INFUSING. CALL LIGHT WITHIN REACH AND REMAINS VISIBLE FROM NURSES STATION. WILL CONTINUE TO MONITOR.
--- NOTE | 2022-09-02 09:35 | NUR ---
PT PULLING AT LINES AND ATTEMPTING TO GET OUT OF RECLINER UNASSISTED. REDIRECTED AND REPOSITIONED IN CHAIR. PT REMAINS VISIBLE FROM NURSES STATION.
--- NOTE | 2022-09-02 10:20 | NUR ---
Pt attempting to get out of chair. Nurses will notify me if family visit.
--- NOTE | 2022-09-02 11:41 | NUR ---
PHYSICAL THERAPIST AND OCCUPATIONAL THERAPIST IN WITH PT AT THIS TIME.
--- NOTE | 2022-09-02 12:37 | NUR ---
PATIENT SITTING UP IN RECLINER FOR LUNCH. VITALS AND I&OS CHARTED. PATIENT ATE VERY LITTLE OF HER LUNCH BUT IS DRINKING AN ENSURE AND CUP OF MILK. LUIS MIGUEL LIGHT IN EASY REACH
--- NOTE | 2022-09-02 14:20 | NUR ---
Received a call from Richard, pts nephew. He states he is the POA. Discussed we need to start to form a plan for this pt. She will not be able to return home alone and I don't think any SNFS will take he due to her confusion and dementia. Richard states pt has had mild dementia, but this is extreme. We discussed [facility] and SENIOR CARE. He does not think the pt has money for placement. I requested his first step is to contact or go to [facility] and have them start an eval for [facility] medicaid. He agrees and asks I call his so, Jennie Sanders, she is a CHW at the hospital. Let him know she has been trying to call me during our conversation and I will call her when we finish our converstation. He will contact [facility]. Called and spoke with Jennie and pricilla. She will assist Richard with contacting [facility] and starting [facility] care medicaid.
--- NOTE | 2022-09-02 14:35 | NUR ---
BEDSIDE REPORT GIVEN TO CRISTY WALTER. PT TRANSPORT VIA CHAIR ON TELEMTRY. ALL BELONGINGS TRASNPORTED WITH PT.
--- NOTE | 2022-09-02 15:06 | NUR ---
PT ARRIVED TO FLOOR VIA CHAIR FROM CCU. BEDSIDE REPORT RECEIVED. PT ON 4L OXYMASK AT THIS TIME. LAMONT ASSESSED AND WNL. ASSESSMENT COMPLETED. ORIENTED PT TO ROOM. PT VISISBLE FORM NUSING STATION. PT DISORIETNED PT PLACE/TIME/ SITUATION.
--- NOTE | 2022-09-02 15:47 | NUR ---
medications reconciled
--- NOTE | 2022-09-02 15:53 | NUR ---
PT CHANGED TO 2L NC, SATURATIONS 92%. PT UP IN CHAIR, CONFUSED. VISISBLE FROM NURSING STATION.
--- NOTE | 2022-09-02 16:00 | NUR ---
Called and spoke with Shruthi Cohen and updated, she will be contact by Richard. Updated to pts inability to care for self in any way and significant dementia.
--- NOTE | 2022-09-02 19:30 | NUR ---
RECEIVED REPORT FROM OFFGOING SHIFT. HOURLY ROUNDING INITIATED.
--- NOTE | 2022-09-02 20:41 | NUR ---
IN PT ROOM FOR MED PASS, ASSESSMENT. PT MEDICATION COMPLIANT, NO INDICATION OF PAIN. PT MASK SET BY CHIN TO HAVE BLOWBY EFFECT. PT CALL LIGHT IN REACH
--- NOTE | 2022-09-02 22:00 | NUR ---
IN PT ROOM TO ASSIST WITH RESETTING TELEMETRY. PT CALL LIGHT IN REACH, NO COMPLAINT OF PAIN
--- NOTE | 2022-09-03 | NUR ---
IN PT ROOM FOR ROUNDING/RESETTING TELEMETRY. PT SITTING UP IN BED, A LITTLE RESTLESS. PT CONTINUES TO HAVE POOR IMPULSE CONTROL AND PULLS OFF LEADS FROM TELEMETRY AND O2 MASK. PT CALL LIGHT IN REACH
--- NOTE | 2022-09-03 03:10 | NUR ---
pt HAS REPEATEDLY PULLED OFF OR REMOVED HER TELEMETRY MONITORING, BED ALARM REMAINS ON FOR SAFETY. PRIMARY RN FRANCO AWARE AND TO GIVE PRN ATIVAN FOR ANXIETY/RESTLESSNESS. CALL LIGHT REMAINS IN REACH OF pt.
--- NOTE | 2022-09-03 06:20 | NUR ---
IN PT ROOM FOR ROUNDING, PT RESTING, NO INDICATION OF PAIN OR DISCOMFORT. PT CALL LIGHT IN REACH
--- NOTE | 2022-09-03 07:04 | NUR ---
Report from BO Clark. Patient resting in bed, oxymask blowing toward face at this time. Respirations even and unlabored. Call light in reach, bed rails up X2. Allowed to rest at this time.
--- NOTE | 2022-09-03 10:30 | NUR ---
Received an email from Jennie Ross, Richard's SO. She is requesting we place this pt at [facility]. Replied by email, I spoke with Richard yesterday and discussed, I cannot place this pt until she has funds to pay. I asked him if she has savings or a credit card to pay the first month. truck terminal manager care through [facility] takes 45 days and she will not be able to remain in the hospital for this amount of time. He stated he would go to [facility], he was not sure of her finances. When I spoke with Jennie yesterday, she had stated pt could not stay with them. They live in house with stairs, and they work.
--- NOTE | 2022-09-03 11:00 | NUR ---
Attempted to speak with Li. She remains confused and does not answer appropriately. Nephew cont to work [employer] for intermediate manager care.
--- NOTE | 2022-09-03 11:33 | NUR ---
PATIENT REMOVED CLOTHING AND OXYGEN. GOWN REPLACED BY THIS NURSE. O2 SATS 90-93% ON ROOM AIR AT THIS TIME. LEFT ON ROOM AIR. WILL REASSESS OXYGENATION. NO INCREASE WORK OF BREATHING NOTED AT THIS TIME. CALL LIGHT IN REACH. REPAIR TECH REMAINS IN PLACE.
--- NOTE | 2022-09-03 12:54 | NUR ---
PT REFUSED TO EAT/DRINK FOR LUNCH.
--- NOTE | 2022-09-03 13:08 | NUR ---
Received a call from Darvin. They are at [facility] speaking with Shruthi Cohen. Shruthi has questions regarding pts ability to complete PT. Read the notes stating pt is unable to comprehend and follow direction. She is a 2 person assist.
--- NOTE | 2022-09-03 13:35 | NUR ---
SITTING IN RECLINER. ASSISTED TO REPOSITION BY THIS NURSE. PATIENT RESTLESS. NO RESPIRATORY DISTRESS NOTED. O2 SATS REMAIN 91% ON ROOM AIR AT THIS TIME. IV CONTINUES INFUSING IV FLUIDS. NO SIGNS OF PAIN NOTED. TELEMETRY DC'D. DR. MONTES IN TO ASSESS PATIENT.
--- NOTE | 2022-09-03 16:09 | NUR ---
Received two emails from Jennie this afternoon asking why pt cannot go to [facility] or SNF with payment from medicare. Replied pt does not qualify to go as a therapy pt to a SNF and also explained she would have to pay out of pocket after the 20 days as she does not have secondary payer. I forwarded my emails to BASIL Dean so she would be able to review tomorrow and answer questions.
--- NOTE | 2022-09-03 19:30 | NUR ---
RECEIVED REPORT FROM OFFGOING SHIFT, HOURLY ROUNDING INITIATED
--- NOTE | 2022-09-03 20:00 | NUR ---
PT PLACED INTO A FRESH GOWN D/T PULLING IV OUT, TELE LEADS REMAIN IN PLACE, PT ALSO NOW PLACE IN A ROBE D/T PT PULLING AT LINES AND PULLINGF GOWN OFF, PT REMAIN UP TO THE CHAIR, VISIBLE FROM RN STATION, CHAIR ALARM IN USE
--- NOTE | 2022-09-03 22:41 | NUR ---
IN PT ROOM FOR MEDICATION ADMINISTRATION - PT REFUSING ALL MEDICATIONS, ATTEMPTED TO ADMINISTER WITH PUDDING, WITHOUT PUDDING, PT REFUSED. DR. WELDON NOTIFIED AND SAID TO ATTEMPT TO ADMINISTER ELIQUS AT 0030 WITH SCHEDULED MEDICATIONS. PT WAS EDUCATED ON IMPORTANCE OF MEDICATION REGIMEN, GIVEN MULTIPLE OPPORTUNITIES, STILL REFUSED. WILL CONTINUE TO MONITOR
--- NOTE | 2022-09-04 00:58 | NUR ---
IN PT ROOM FOR MEDICATION ADMINISTRATION. PT WAS MEDICATION COMPLIANT, TOOK BOTH THE ELIQUIS AND LOPRESSOR WITHOUT MUCH PROMPTING. PT TELEMETRY LEADS RECONNECTED, NO COMPLAINT OF PAIN OR DISCOMFORT. CALL LIGHT IN REACH
--- NOTE | 2022-09-04 01:46 | NUR ---
IN PT ROOM FOR ROUNDING. PT RESTING IN RECLINER, NO INDICATION OF PAIN OR DISCOMFORT. PT CALL LIGHT IN REACH
--- NOTE | 2022-09-04 03:38 | NUR ---
IN PT ROOM FOR ROUNDING. PT SEEN TO HAVE SOILED SELF. PT REMOVED FROM FILTHY CLOTHING AND RELPACED CLOTHING AND TELELMETRY LEADS. PT ASSISTED TO COMMODE, PT RETURNED TO BED, NO TITRATING ECESSARY
--- NOTE | 2022-09-04 05:19 | NUR ---
IN PT ROOM FOR ROUNDING. PT RESTING IN RECLINER, NO INDICATION OF PAIN OR DISCOMFORT. PT CALL LIGHT IN REACH
--- NOTE | 2022-09-04 07:49 | NUR ---
RECIEVED SHIFT REPORT. PT IN RECLINER, AWAKE. CALL LIGHT WITHIN REACH.
--- NOTE | 2022-09-04 10:37 | NUR ---
MORNING ASSESSMENT COMPLETE. PT IN RECLINER. SPO2 88% ON RA. RT IN ROOM PLACED PT ON 2L OXYMASK, SPO2 94%. PT REQUESTING TO USE BATHROOM. PLACED ON [facility], WAS UNABLE TO GO, AND CONITUNED TO GET UP. LUNG SOUNDS CLEAR IN ALL LOBES. UNABLE TO VERBALIZE IF IN PAIN, FLACC SCALE- 0. TELE IN PLACE. CALL LIGHT IN REACH. CHAIR ALARM ON.
--- NOTE | 2022-09-04 11:05 | NUR ---
SITTING UP IN CHAIR. WHEN ASKED WHAT THE PLAN OF CARE IS THE PATIENT SAYS I DO NOT KNOW. PATIENT IS CONFUSED TO DATE AND TIME. WILL CONTINUE TO FOLLOW UP WITH FAMILY TO HELP PLAN A SAFE DISCHARGE PLAN.FAMILY HAS MET WITH [facility] TO START THE PAPER WORK TO HELP WITH FINANCES FOR PLACMENT.
--- NOTE | 2022-09-04 12:02 | NUR ---
LYNDA THE PATIENT'S QUANTITY SURVEYOR CAME TO VISIT.LYNDA IS THE PATIENT'S QUANTITY SURVEYOR FOR 8 HOURS A WEEK. THE QUANTITY SURVEYOR STATES THIS IS NOT HER NORMAL STATE, USUALLY THE PATIENT IS MUCH MORE TALKATIVE AND INTERACTIVE WITH PEOPLE.
--- NOTE | 2022-09-04 12:39 | NUR ---
PT IN RECLINER EATING LUNCH. CALL LIGHT WITHIN REACH. CHAIR ALARM ON.
--- NOTE | 2022-09-04 14:09 | NUR ---
PT SITTING IN RECLINER. CALL LIGHT WITHIN REACH. CHAIR ALARM ON.
--- NOTE | 2022-09-04 14:40 | NUR ---
Patient back in bed after meal. Nurse CJ put in vitals and i/o's. Pt received marlo care/diaper care. Bed alarm on, call light within reach.
--- NOTE | 2022-09-04 14:44 | NUR ---
AFTERNOON ASSESSMENT COMPLETE. PT TRANSPORTED FROM CHAIR TO BED, 2PA, JESSICA STEADY. NO NEW CHANGES SINCE MORNING ASSESSMENT. PT TOOK O2 OFF. SPO2 88% RA. PLACED 2L OXYMASK BACK ON PT, SPO2 94%. CLEANED PT WITH CLEAN DEPENDS IN PLACE. REDDENED AREA NOTED TOWARDS THE COCCYX. CLEANED THE AREA AND DRIED TO PREVENT BUILD UP OF MOISTURE. BED ALARM ON. CALL LIGHT WITHIN REACH.
--- NOTE | 2022-09-04 15:00 | NUR ---
PATIENT'S APPETITE IS NOT GREAT. SHE IS ON A REGULAR DIET. WILL ADD ENSURE TWICE A DAY ON MEAL TRAYS TO PROVIDE CALORIES, PROTEIN, AND VITAMINS.
--- NOTE | 2022-09-04 19:25 | NUR ---
Received report from offgoing shift, hourly rounding initiated
--- NOTE | 2022-09-04 20:40 | NUR ---
IN PT ROOM FOR MEDICATION ADMINISTRATION, ROUNDING. PT RESTING ON BACK, HAD TO RESET TELEMETRY LEADS. PT WAS MEDICATION COMPLIANT, STOOL SOFTENERS HELD DUE TO FREQUENCY AND CONSISTENCY OF BM'S. PT CALL LIGHT IN REACH, NO COMPLAINT OF PAIN OR DISCOMFORT.
--- NOTE | 2022-09-04 22:58 | NUR ---
IN PT ROOM FOR MEDICATION ADMININISTRATION. PT COMPLIANT WITH MEDICATION, TELEMETRY LEADS RESET, CALL LIGHT IN REACH, NO COMPLAINT OF PAIN OR DISCOMFORT.
--- NOTE | 2022-09-05 02:10 | NUR ---
IN PT ROOM FOR MEDICATION ADMINISTRATION. PT BRIEF SOILED, DIAPER AND PERICARE PROVIDED. PT MEDICATION COMPLIANT, LEFT WITH CALL LIGHT IN REACH, NO COMPLAINT OF PAIN OR DISCOMFORT.
--- NOTE | 2022-09-05 04:46 | NUR ---
IN PT ROOM FOR ROUNDING. TELEMETRY STILL IN PLACE, PT RESTING ON BACK, BREATHING EVEN AND UNLABORED, NO INDICATION OF PAIN OR DISCOMFORT. CALL LIGHT IN REACH
--- NOTE | 2022-09-05 06:03 | NUR ---
IN PT ROOM IN RESPONSE TO SERVICE AIDE INFORMING OF A SP02 READING OF 83% ON ROOM AIR. PT TITRATED AIR UP IN MASK TO 2LPM WITH A RESULT OF PT HAVING A SP02 SATURATION OF 92%. LEFT PT WITH MASK ON, WILL CONTINUE TO MONITOR.
--- NOTE | 2022-09-05 07:05 | NUR ---
RECIEVED SHIFT REPORT. PT RESTING IN BED, EYES CLOSED. BREATHING EVEN AND UNLABORED. CALL LIGHT WITHIN REACH.
--- NOTE | 2022-09-05 08:23 | NUR ---
PATIENT IN CHAIR. BREAKS LOCKED. OXYMASK ON. CALL LIGHT WITHIN REACH.
--- NOTE | 2022-09-05 08:25 | NUR ---
MORNING ASSESSMENT COMPLETE. PLATER SUPERVISOR IN ROOM REPORTED PT O2 WAS NOT ON PT, SPO2 77%. PLACED OXYMASK 5L, SPO2 88%-90%. TITRATED TO 2L, SPO2 MAINTAINED 88%. PT IS ON 5L, MAINITAINING 93% MAX. CHARGE NURSE AWARE. LUNGS CLEAR BILAT, DIM BILAT LOWER. PT ABLE TO TAKE MORNING MEDS, W/O DIFFICULTY. CALL LIGHT WITHIN REACT, CHAIR ALARM ON.
--- NOTE | 2022-09-05 13:47 | NUR ---
PATIENT IN CHAIR AFTER MEAL. VITALS AND I/O'S COMPLETED. OXYMASK ON, CHAIR ALARM ON, AND THE CALL LIGHT IS WITHIN REACH.
--- NOTE | 2022-09-05 14:18 | NUR ---
AFTERNOON ASSESSMENT COMPLETE. PT IN RECLINER. REORIENTED TO PERSON, PLACE, DATE, AND EVENT. NO NEW CHANGES SINCE MORE ASSESSMENT. REMAINS ON OXYMASK, 5L, SPO2 94%. WHEN TAKING MEDS O2 AT BLOWBY, SPO2 DESATS TO 88%. TOOK MEDICATIONS WITHOUT DIFFICULTY, WITH APPLESAUCE. CALL LIGHT WITHIN REACH. CHAIR ALARM ON/
--- NOTE | 2022-09-05 19:28 | NUR ---
PATIENT SITTING UP AT EDGE OF BED TALKING WITH FAMILY. CALL LIGHT WITHIN REACH. BEDSIDE HANDOFF FROM DAYSHIFT RN, NO NEEDS AT THIS TIME.
--- NOTE | 2022-09-05 20:15 | NUR ---
PATIENT UP IN RECLINER. FULL BODY ASSESSMENT DONE. HS MEDICATIONS ADMINISTERED, WITH PRN TRAZADONE FOR SLEEP. PATIENT SPIT OUT PILL, AND STATED " NO I WON'T TAKE YOUR PILLS" EXPLAINED TO PATIENT THE MEDICATION SHE WAS RECIEVING AND ENCOURAGED PATIENT TO TAKE FOR OWN WELL BEING. PATIENT THEN AGREED TO TAKE MEDICATION. SAT PATIENT AT EDGE OF RECLINER AND SLOWLY EXPLAINED TO PATIENT TO TRANSFER OVER TO BED. PATIENT ABLE TO STAND AND PIVOT OVER, 1 PERSON MAX ASSIST WITH GAIT BELT. REPOSITIONED PATIENT IN BED, ATTEND CHANGED. PATIENT STATED " I DON'T THINK I AM GOING TO BE ABLE TO SLEEP" TURNED DOWN LIGHTS AND TELEVISION OFF. BED ALARM ON. PATIENT RESTING BACK. WITH ACTIVITY NOTED HR INCREASED TO 122, AT REST 108.
--- NOTE | 2022-09-05 22:44 | NUR ---
INTO ROOM TO CHECK ON PATIENT, OXYMASK OFF AND HUNG TIGHT AROUND ARM. REMOVED OXIMASK AND PLACED PATIENT ON NC, EXPLAINED TO PATIENT THAT SHE NEEDED THE OXYGEN, PATIENT VERBALIZED WOULD KEEP NC IN PLACE. CHANGED ATTEND, SATURATED WITH URINE, AND SMALL SMEAR OF STOOL. PATIENT ABLE TO ROLL TO SIDE WITH CUEING AND ASSISTANCE TO HELP WITH CHANGING ATTEND. RT INTO ROOM, 02 SAT 90% ON 3L NC. PATIENT APPEARS CALM, BUT WIDE AWAKE. BED ALARM ON.
--- NOTE | 2022-09-05 23:26 | NUR ---
PATIENT APPEARS CALM, OXYGEN IN PLACE, BREATHING EASY, HR 109-120 INTERMITTENTLY. BED ALARM ON.
--- NOTE | 2022-09-06 00:22 | NUR ---
INTO ROOM TO CHECK ON PATIENT, APPEARS TO BE RESTING WITH EYES CLOSED. BED ALARM ON.
--- NOTE | 2022-09-06 01:31 | NUR ---
PATIENT AWOKE TO TAKE CARDIZEM PO WITH BITE OF PUDDING. THEN APPEARED TO CLOSE EYES, APPEARS CALM. BED ALARM ON. HR 115 TO 125, AFIB TELE 7.
--- NOTE | 2022-09-06 02:03 | NUR ---
PATIENT RESTING WITH EYES CLOSED. BREATHING EVEN AND REGULAR. APPEARS TO HAVE NO NEEDS AT THIS TIME. BED ALARM ON.
--- NOTE | 2022-09-06 03:56 | NUR ---
PATIENT HR ON MONITOR 110-125 WITH ARTIFACT PRESENT. INTO ROOM, PATIENT HAD PULLED LOOSE A FEW LEADS AND APPEARED TO BE SHALLOW BREATHING SECONDARY TO SLIDING DOWN INTO BED. REPOSITIONED PATIENT UP IN BED, BREATH SOUNDS IMPROVED. PROVIDED COOL RAG. PATIENT CLOSING EYES, APPEARS TO BE RESTING, CALM. BED ALARM ON.
--- NOTE | 2022-09-06 05:00 | NUR ---
PATIENT APPEARS TO BE RESTING WITH EYES CLOSED. BREATHING REGULAR AND EVEN. PLAN TO CONTINUE TO LET PATIENT SLEEP.
--- NOTE | 2022-09-06 07:40 | NUR ---
recieved shift reprt. call light within reach. pt resting in bed awake.
--- NOTE | 2022-09-06 08:00 | NUR ---
MORNING ASSESSMENT COMPLETE. PT HAD A DIFFICULT TIME TAKING MORNING MEDS, BUT WAS ABLE TO ADMINISTER ALL OF THEM. PT REORIENTED TO ALL. DIM IN ALL LOBES. ON 3L NC, SPO2 93%, TOLERATING WELL. CALL LIGHT WITHIN REACH.
--- NOTE | 2022-09-06 12:00 | NUR ---
pt in recliner, awake. call light within reach.
--- NOTE | 2022-09-06 16:40 | NUR ---
pt resting in recliner, eyes closed, breathing even and unlabored. call light within reach. chair alarm on.
--- NOTE | 2022-09-06 18:20 | NUR ---
PT RESTING IN RECLINER, EYES CLOSED, EASY TO AROUSE. PT STATES SHE IS NOT HUNGRY. CHAIR ALARM ON. CALL LIGHT WITHIN REACH.
--- NOTE | 2022-09-06 19:20 | NUR ---
REPORT RECEIVED FROM BO YUN. PT SITTING UP IN CHAIR. RR EVEN AND UNLBAORED. NC PLACED BACK ON PT PT TOOK NC OFF. TELE DC'd PER ORDERS. PT DENIES ANY PAIN. PT DENIES ANY NEEDS AT THIS TIME. CALL LIGHT IN REACH.
--- NOTE | 2022-09-06 22:19 | NUR ---
IN TO ADMINISTER MEDICATIONS, SEE MAR. PT TAKES PO MEDICATIONS WITH APPLE SAUCE. PT CHEWS MOST OF THE MEDICATIONS AND SPITS UP SOME OF THE MEDICATION AND STATES "I CAN NOT EAT ANYMORE." MULTIPLE ATTEMPTS TO GET PT TO TAKE REST OF MEDICATION, BUT THE CARDIZEM CAPSULE PT REFUSED TO TAKE AND CONTINUES TO SPIT OUT, THE CAPSULE WAS PARTIALLY CHEWED AND SOME OF THE CONTENTS FROM INSIDE THE CAPSULE WERE EXPOSED. UNDURE OF HOW MUCH OF THE CONTENTS FROM THE CAPSULE PT RECEIVED. ASSESSMENT COMPLETE. LUNG SOUND CRACKLES THROUGHOUT ALL LOBED. BOWEL TONES ACTIVE. PT DENIES ANY PAIN. PT APPEARS RELAXED. NO DISTRESS NOTED. DORCAS MONTALVO IN TO ASSIST WITH TRANSFER FROM CHAIR TO BED USING SIT TO STAND. PT NOW LAYING IN BED IN A RELAXED POSITION. NO OTHER NEEDS IDENTIFIED AT THIS TIME. CALL LIGHT IN REACH. BED ALARM ON.
--- NOTE | 2022-09-07 00:03 | NUR ---
IN TO ROUND ON PT. PT HAS NC OFF. PLACED NC BACK ON PT. PT ATTEMPTING TO TAKE GOWN OFF. PLACED GOWN BACK ON PT. AWAKE, PT STATES SHE "DOES NOT KNOW" WHERE SHE IS. REORIENTED PT THAT SHE IS AT [facility] IN [place], [place]. PRN MEDICATION ADMINISTERED, SEE MAR. PT TAKES MEDICATION CRUSHED AND IN APPLE SAUCE. PT SPIT MOST OF MEDICAITON OUT ONTO GOWN. NEW GOWN PROVIDED. INCONTINENT OF URINE. MARTIN CARE PROVIDED AND NEW ATTENDS IN PLACE WITH ASSISTANCE FROM BO KARIMI. NO OTHER NEEDS IDENTIFIED AT THIS TIME. CALL LIGHT IN REACH. BED ALARM ON.
--- NOTE | 2022-09-07 01:30 | NUR ---
IN TO ROUND ON PT. BO KARIMI AND BO BORJA IN ROOM. THIS RN INFORMED BY BO BORJA AND BO KARIMI THAT PT REMOVED NC AND GOWN. BO KARIMI AND BO BORJA PLACED NC AND GOWN BACK ON PT. PT SITTING UP IN BED WITH RR EVEN AND UNLABORED. NO OTHER NEEDS IDENTIFIED AT THIS TIME. CALL LIGHT IN REACH. BED ALARM ON.
--- NOTE | 2022-09-07 02:10 | NUR ---
IN TO ANSWER CALL LIGHT. PT WAVING THIS RN INTO ROOM. PT REPORTS NEEDING TO USE RESTROOM. TREV RN IN TO ASSIST WITH TRANSFERING PT FROM BED TO COMMODE. NO VOIDING NOTED. ASKED PT IF PT STILL NEEDED TO VOID, PT RESPONDS "NO." 2PA FROM COMMODE BACK TO BED. NEW ATTENDS IN PLACE. NO OTHER NEEDS AT THIS TIME. CALL LIGHT IN REACH. BED ALARM ON.
--- NOTE | 2022-09-07 03:00 | NUR ---
IN ROOM PTs NC AND GOWN IS OFF. PTs O2 SATS 87% ON RA. PLACED NC BACK ON TO 2L NC. PTs O2 INCREASES TO 91%. GOWN PLACED BACK ON PT. COVERS OFF PT PER PT REQUEST, PT STATES "THE BLANKETS ARE TOO HEAVY." OFFERD PT MARCEL BEAR, PT TAKES MARCEL BEAR. NO OTHER NEEDS IDENTIFIED AT THIS TIME. CALL LIGHT IN REACH. BED ALARM ON.
--- NOTE | 2022-09-07 04:01 | NUR ---
IN BED ALARM ALARMING. PT HAS GOWN AND NC OFF. O2 SATS CHECKED AT PTs O2 SATS AT 83% ON RA. PLACED PT ON 5L NC AND O2 SATS INCREASE TO 92%. TITRATED BACK DOWN TO 2L NC AND PT REMAINS AT 90%. PT STATES "LET ME SEE HER." WHEN ASKED WHO "SHE" IS PT STATES "MARCEL" MARCEL BEAR PLACED IN PTs HANDS. PT CONTINUES TO STATE "PLEASE LET ME SEE HER." PT HAS MARCEL BEAR IN HANDS. PT NOT ALERT TO PLACE OR SURROUNDINGS. INFORMED PT THAT SHE IS AT [facility]. ASSESSMENT COMPLETE. LUNG SOUNDS CRACKLES THROUGHOUT ALL LOBES. LLL AND KRYSTINA CRACKLES AND DIMINISHED. PT TAKES NC OFF. PLACED NC BACK ON PT. PT CONTINUES TO STATE "I NEED TO SEE HER, MARCEL" WHILE HOLDING MARCEL BEAR IN HANDS. PT STATES "LET'S GO TO BED WITH HER" MARCEL BEAR IN BED WITH PT. PT RESTING IN BED WITH MARCEL BEAR. NO OTHER NEEDS AT THIS TIME. CALL LIGHT IN REACH. BED ALARM ON.
--- NOTE | 2022-09-07 05:40 | NUR ---
IN TO ROUND ON PT. PT LAYING IN BED NC AND GOWN OFF. O2 AT 83% ON RA. NC PLACED AND ON 5L O2 INCREASES TO 94%. TITRATED O2 TO 2L NC AND O2 REMAINS AT 91%. GOWN PLACED BACK ON PT. PT INCONTINENT OF URINE. MARTIN CARE PROVIDED. NEW ATTENDS IN PLACE. PT LAYING IN BED WITH MARCEL BEAR IN ARMS. NO OTHER NEEDS IDENTIFIED AT THIS TIME. CALL LIGHT IN REACH. BED ALARM ON.
--- NOTE | 2022-09-07 06:50 | NUR ---
THIS RN TALKED WITH DR. WELDON ON TELEPHONE TO INFORM HIM PTs URINE OUTPUT IS INSUFFICIENT. NO NEW ORDERS RECEIVED.
--- NOTE | 2022-09-07 07:24 | NUR ---
IN ROOM PT HAS REMOVED NC AND GOWN. PT AT 84% O2 ON RA. NC PLACED ON 6L AND O2 INCREASES INTO THE 90%'s. TITRATED BACK TO 2L NC AND PT O2 IS AT 91%. GOWN PLACED BACK ON PT. MARCEL BEAR IN PTs ARMS. PT REPORTS NO OTHER NEEDS AT THIS TIME. CALL LIGHT IN REACH. BED ALARM ON.
--- NOTE | 2022-09-07 07:47 | NUR ---
PT AWAKE AT TIME OF SHIFT REPORT, HAS REMOVED ALL CLOTHING AND 02. ASSISTED PT TO RESUME 02 AND DRESS. FRESH H20 TO BEDSIDE BED ALARM IS ON.
--- NOTE | 2022-09-07 10:59 | NUR ---
PT FOUND WITH 02 OFF SEVERAL TIMES THROUGHOUT THE MORNING. ASSISTED TO REPLACE PRN. SATS 81% ON RA. PT ASSISTED UP TO THE CHAIR PRIOR TO MORNING MEAL MAX 2 PERSON ASSIST PT UNABLE TO FOLLOW DIRECTIONS. PT EATS A LITTLE FRUIT ONLY FOR MEAL, MORE FRUIT AND YOGURT ORDERED PT EATS VERY LITTLE. CONTINUES TO BE UNABLE TO FOLLOW SIMPLE INSTRUCTIONS. PT IS PLEASANT AND COOPERATIVE. UP IN THE CHAIR AT THIS TIME, ALARM SET. [address] VISUAL TO RN STATION. SHE DENIES NEEDS UNDERGARMENT HAS BEEN CHANGE AND MARTIN CARE COMPLETED.
--- NOTE | 2022-09-07 11:50 | NUR ---
RECVD NOTE FROM MARVIN SORIANO STATING PATIENT FAMILY MEMBER NGUYEN REQUESTING TO BE A PART OF THE UPCOMING CARE CONFERENCE FOR THE PATIENT. RETURNED CALL TO NGUYEN, SHE IS THE PATIENT DAUGHTER IN LAW. NGUYEN IS IS TO THE PATIENTS STEP SON TAWNY COSME. THEY CURRENTLY LIVE IN THE [facility] WHERE THE REST OF THE PATIENTS FAMILY RESIDES. NGUYEN STATES THEY HAD BEEN UNABLE TO CONTACT MELODY AT HOME AND HAD BEEN ATTEMPTING TO CONTACT THE PATIENT 1/2 NEPHEW BARBARA. UPDATED NGUYEN ABOUT THE PATIENT INABILITY TO RETURN HOME AT THIS TIME AND HER NEEDS FOR AN ASSISTED LIVING FACILITY. DISCUSSED THAT ALMA RN HAD BEEN IN CONTACT WITH BARBARA WHO IS THE PATIENT FINANCIAL POA ABOUT PAYMENT FOR SHELTER AND THE CONTACT OF [facility] TO INITIATE MEDICAID FOR SHELTER CARE. NGUYEN STATES THAT WHEN THE PATIENT MOVED TO THE AREA SHE HAD MONEY IN [place] THAT NGUYEN BELIEVED WOULD HAVE PAID FOR AN SHELTER. DISCUSSED THE WE DO NOT KNOW THE PATIENT EXACT FINANCIALS, BUT KNOW THAT BARBARA AND HIS SO ZULMA STATE THE PATIENT DOES NOT HAVE THE FINDS TO PAY. I ADVISED THAT NGUYEN SPEAK WITH BARBARA FOR FURTHER INFORMATION WELL PROVIDING THE CONTACT TO [facility] SO THAT HER AND HER COULD FIND OUT MORE INFORMATION. NGUYEN STATES THAT THE PATIENT ALSO OWNS A HOME HERE IN [place] THAT SHE FEELS COULD BE SOLD TO HELP PAY FOR HER PLACEMENT. NGUYEN STATES THAT HER AND OTHER FAMILY WOULD LIKE TO CONSIDER THE PATIENT MOVING TO A FACILITY CLOSER TO THEM THERE ARE MORE PEOPLE TO HELP WITH HER CARE AND ASSIST BARBARA WITH OTHER MATTERS. ADVISED THAT WE WOULD BE WILLING TO HELP PLACE THE PATIENT WHERE EVER THE FAMILY AGREEED UPON. NGUYEN WENT ON TO INQUIRE FURTHER ABOUT BARBARA'S SO ZULMA'S EVOLVEMENT WITH THE PATIENTS SITUATION. NGUYEN STATES THAT THEY WERE UNAWARE THAT BARBARA HAD A SO. ADVISED NGUYEN TO SPEAK FURTHER WITH BARBARA REGARDING THE MATTER, BUT CASE MANAGEMENT HAD BEEN COMMUNICATING WITH ZULMA PER BARBARA'S REQUEST. THIS RN ALSO ADVISED THAT PRIOR TO THIS CONVERSATION CASE MANAGEMENT WAS UNAWARE THAT THE PATIENT HAD ANY OTHER FAMILY SHE HAS BEEN UNABLE TO COMMUNICATE THIS WITH US.
--- NOTE | 2022-09-07 11:55 | NUR ---
CONTACT NUMBERS FOR NGUYEN COSME [phone] AND TAWNY COSME [phone].
--- NOTE | 2022-09-07 14:34 | NUR ---
PT TO THE SHOWER 2 PA TO SHAMPOO AND WASH. PT TO BED WITHA WARM BLANKET NAPS FOR A SHORT TIME. AWAKE NOW UP TO THE CHAIR [address] CHAIR ALARM IS SET
--- NOTE | 2022-09-07 18:45 | NUR ---
PT UP TO BEDSIDE COMMODE FROM RECLINER MARTIN CARE DONE AND ASSISTED TO BED
--- NOTE | 2022-09-07 19:53 | NUR ---
PATIENT IN BED AWAKE, NO DISTRESS. PATIENT ORIENTED TO SELF, IN PLEASANT MOOD. SNACK PROVIDED AT THIS TIME, PATIENT ABLE TO EAT INDEPENDENTLY. BED ALARM INTACT. ATTEMPTED TO ORIENT PATIENT TO ROOM AND CALL LIGHT, SHE DISPLAYS CONTINUED CONFUSION. CLOSE TO RN STATION.
--- NOTE | 2022-09-08 01:00 | NUR ---
PT RESTING INBED, EYES CLOSED. RR EVEN, UNALBORED NC @ 2L. CALL LIGHT IN REACH, BED ALARM ON.
--- NOTE | 2022-09-08 02:00 | NUR ---
PT RESTING IN BED, EYES CLOSED.RR EVEN, UNLABORED. NC @ 2L. CALL LIGHT IN REACH, RAILS UP.
--- NOTE | 2022-09-08 03:55 | NUR ---
ASSESSMENT COMPELTED. REDNESS TO GROIN, PANNUS AND BREAST MEDICATED. BRIEFS CHANGED. PT REPOSITIONED. LUNGS COARSE IN UPPER LOBES IN DIM IN LOWER LOBES. SCATTERED BRUISING NOTED. I.S. PROVIDEDWITH EDUCATION. NO OTHER NEEDS AT THIS TIME. CALL LIGHT IN REACH.
--- NOTE | 2022-09-08 07:24 | NUR ---
PT RESTING IN BED QUIET ALERT AT TIME OF SHIFT REPORT. SHE IS WEARING NO CLOTHES OR 02. SATS 84% ON ROOM AIR. 02 REPLACED AT 2LPM NC SATS RECOVER QUICKLY. PT NOT INTERACTIVE AT THIS TIME FOCUSED ON STUFFED ANIMAL AND CALL LIGHT BUTTONS. BED ALARM IS SET, PT VISUAL TO RN STATION
--- NOTE | 2022-09-08 10:23 | NUR ---
PT TO THE TOILET THEN RECLINING CHAIR FOR MORNING MEAL. PT EATS VERY LITTLE DESPITE CUES AND ENCOURAGEMENT. PT ALERT TO SELF ONLY. CHAIR ALARM IS SET
--- NOTE | 2022-09-08 14:00 | NUR ---
Pt resting in chair, confused. Received a call from Reji Poe from [facility] asking for update. Will call later.
--- NOTE | 2022-09-08 14:30 | NUR ---
PT CONTINUES UP IN THE RECLINER AT THIS TIME DOZING. WORKED WITH P/T AND O/T ATE VERY LITTLE OF HER NOON MEAL DESPITE ENCOURAGEMENT, CUES, AND OFFERS OF OTHER ITEMS. PT CONTINUES TO PULL HER 02 OFF INTERMITTANTLY. SATS DROP TO 80'S BUT RETURN TO NORMAL LEVELS QUICKLY WITH 2LPM.
--- NOTE | 2022-09-08 19:05 | NUR ---
Did not have time to call Reji Poe at [facility], will call in the AM.
--- NOTE | 2022-09-08 19:42 | NUR ---
RECEIVED REPORT FROM DAY SHIFT RN. PATIENT IS RESTING IN BED WITH EYES CLOSED, RR 18. CALL LIGHT IN REACH. BED ALARM ON FOR SAFETY.
--- NOTE | 2022-09-08 20:50 | NUR ---
PATIENT ASSSEMENT COMPLETED. PATIENTS VITALS TAKEN AND RECORDED. INTAKE AND OUTPUT RECORDED. PATIENT INCONT URINE, ATTEND CHANGED AND MARTIN CARE COMLETED. PATIENT PROVIDED SIPS OF WATER. NO FURTHER NEEDS NOTED. CALL LIGHT IN REACH. BED ALARM ON FOR SAFETY.
--- NOTE | 2022-09-08 22:20 | NUR ---
PATIENT PM MEDS PER ORDER. PATIENTS MEDS GIVEN IN APPLESAUCE. PATIENT FED HERSLEF THE APPLSAUCE WITH PROMPTING. PATIENT ATTEND IS DRY AT THIS TIME. NO FURTHER NEEDS NOTED. GRAPE JUICE PROVIDED. CALL LIGHT IN REACH. BED ALARM ON FOR SAFETY.
--- NOTE | 2022-09-08 23:34 | NUR ---
PATIENT IS RESTING IN BED WITH EYES CLOSED, RR 16. CALL LIGHT IN REACH. BED ALARM ON FOR SAFETY.
--- NOTE | 2022-09-09 02:10 | NUR ---
PATIENT IS RESTING IN BED. PATIENT INCONT OF URINE. PATIENTS ATTEND CHANGED, MARTIN CARE COMPLETED. PATIENT REPOSITIONED IN BED. PATIENT PROVIDED SIPS OF WATER. PATIENT REMAINS ONLY ORIENTED TO SELF. BED ALARM ON FOR SAFETY. CALL LIGHT IN REACH.
--- NOTE | 2022-09-09 04:00 | NUR ---
PATIENT IS RESTING IN BED WITH EYES CLOSED, RR 15. PATIENT IS RESTING IN BED ON HER LEFT SIDE. CALL LIGHT IN REACH. BED ALARM ON FOR SAFETY.
--- NOTE | 2022-09-09 06:33 | NUR ---
PATIENT IS RESTING IN BED WITH EYES CLOSED, RR 15. CALL LIGHTIN REACH. BED ALARM ON FOR SAFETY.
--- NOTE | 2022-09-09 07:43 | NUR ---
REPORT RECEIVED. PT LYING IN BED AWAKE. PARK WARDEN IN TO ASSIST IN GETTING UP TO CHAIR. ALARMS IN PLACE. VISIBLE FROM NURSING STATION.
--- NOTE | 2022-09-09 08:57 | NUR ---
THIS RN AND ALMA RN INTO PATIENT ROOM. PATIENT SITTING UP IN CHAIR EATING, BO WALTER AT BEDSIDE. ADVISED PATIENT THAT WE HAVE RECVD A CALL FROM DAUGHTER IN LAW NGUYEN. ASKED PATIENT IF IT WAS OKAY TO SPEAK WITH HER DAUGHTER AND LAW AND STEP SON TAWNY, PATIENT STATES "YES." CASE MANAGEMENT EXPLAINING TO PATIENT THAT TAWNY AND NGUYEN WOULD LIKE THE PATIENT TO MOVE CLOSER TO THEM IN [facility] SO THAT THEY ARE ABLE TO VISIT HER. ASKED PATIENT IF SHE WOULD BE INTERESTED IN MOVING CLOSER TO HER STEP SON. INITALLY THE PATIENT ANSWER "YES", BUT ON FURTHER QUESTION PATIENT IS CONFUSED. PATIENT CLEARLY CONFUSED AND STRUGGLES TO EXPRESS HER THOUGHTS. CASE MANAGEMENT ASKING PATIENT IF SHE PURCHASED HER HOME WHEN SHE MOVED TO [place]. PATIENT STATES "YES, MY NEPHEW" THEN STOPS IN MID SENTENCE. ADVISED PATIENT AND SABA SORIANO THAT CASE MANAGEMENT WILL SPEAK WITH BARBARA FELICIANO AND PATIENT FAMILY REGARDING FURTHER PLACEMENT.
--- NOTE | 2022-09-09 09:10 | NUR ---
Called and spoke with Shruthi Cohen at [facility] and gave her the phone numbers for Kristina Marley and Sunday Ely. They would like to be included in the financial assessment today. Pt has been assigned to Shruthi and will be assigned to Nathaly Gomez. Shruthi states Nathaly has multiple people to see before she will be able to eval Li. Let Shruthi know I cannot place pt until have infor for funding and Richard FELICIANO, states pt does not any funding.
--- NOTE | 2022-09-09 09:47 | NUR ---
LEFT MESSAGE FOR MONICA BAEZ AT [facility] TO DISCUSS CONCERNS.
--- NOTE | 2022-09-09 09:54 | NUR ---
ASSESSMENT COMPLETED. PT SITTING UP IN CHAIR. PT ABLE TO ANSWER SOME QUESTIONS BUT IS NOT ABLE TO COMPREHEND THINGS. SWALLOWED SOME PILLS. SPIT OUT SENNA. NOT WILLING TO TAKING ANYTHING BY MOUTH AT THIS POINT. LUNGS WITH CRACKLES THROUGHOUT. TITRATED NC TO 3L TO KEEP SATURATIONS AT 90%. PT WITHOUT SOB OR DIFFICULTY BREATHING. VISIBLE FROM NURSING STATION. CHAIR ALARM IN PLACE.
--- NOTE | 2022-09-09 09:57 | NUR ---
RECVD RETURN CALL FROM MONICA BAEZ AT [facility]. DISCUSSED PATIENT CURRENT FAMILY AND FINANCIAL SITUATION. ADVISED MONICA OF FAMILIES CONCERN FOR THE PATIENT FINANCIALLY. CONTACT INFORMAION FOR NGUYEN AND TAWNY COSME GIVEN TO MONICA FOR FURTHER INVESTIGATION. MONICA STATES SHE WILL BEGIN INVESTIGATION AND CONTACT US WITH ANY FURTHER QUESTIONS.
--- NOTE | 2022-09-09 12:00 | NUR ---
PT SITTING UP IN CHAIR. 3L NC IN PLACE. PT HAS LUNCH AT SIDE AND IS PICKING AT IT. CHAIR ALARM IN PLACE.
--- NOTE | 2022-09-09 12:03 | NUR ---
Received a call from SUDHA Marley. She and family would like to visit this weekend and next weekend. She states concern for Li and wants to know where her $360,000 has gone from the sale of her home 1.5 years ago. She states Li has multiple family members and all are very concerned. I gave her the phone number for Reji Poe at [facility] and asked to call her, as we deal with medical and not financial or legal issues. I also told her how to call into the room to speak with Li by phone.
--- NOTE | 2022-09-09 15:21 | NUR ---
Notified by Reji from , she was notified by insurance today. They will extend payment through Wednesday, but pt needs to be placed by that time. Pt has a financial eval with [facility] today. I will call and discuss with Richard acuña for this pt to or. We had discussed last week, pt cannot remain in the hospital once she does not have a medical need.
--- NOTE | 2022-09-09 16:47 | NUR ---
Received a call from Jennie and Richard. They met with [facility] and pt has been declined at this time as they were able to see pt has/had money from her house sale. Discussed with both of notification from insurance, payment will stop on Wednesday. Discussed need to find family or funds for placement of of this pt. I updated to my call from Ayaka and asked if maybe family in [facility] could care for Li. I also suggested they use her credit card for payment to an [facility]. This would give them 30 days to straighten out pts finances with [facility]. Jennie feels family in [place]' are attempting to take pts money. Richard states Li gifted him the money from the sale of her home. Let them know I don't deal with financials, I work with pts medical side. It is imperative pt find placement as she will accrue a large bill per day when insurance stops paying. I asked if they would like me to look for placement and they agreed. I called and [facility] and they do not have rooms. [facility] may have a room in their memory care. They will let me know tomorrow. I was unable to reach admission at [facility] in [place].
--- NOTE | 2022-09-09 18:00 | NUR ---
PT DID NOT EAT ANY DINNER. TWO PERSON PIVOT TO BED. BED ALARM PLACED. NO CONCERNS.
--- NOTE | 2022-09-09 19:50 | NUR ---
RECEIVED REPORT FROM DAY SHIFT RN. PATIENT IS RESTING IN BED. NO NEEDS NTOED. CALL LIGHT IN REACH. BED ALARM ON FOR SAFETY.
--- NOTE | 2022-09-09 21:00 | NUR ---
PATIENT ASSSMENT COMPLETED. PATIENTS ATTEND CHANGED AND MARTIN CARE COMPLETED. PATIENT IS ON 2L VIA WI. PATIENTS VITALS TAKEN AND RECORDED. PATIENTS PILLS GIVEN IN APPLESAUCE. PATIENT REPOSITIONED IN BED. PATIENT GIVEN GRAP JUICE. NO FURTHER NEEDS NOTED. CALL LIGHT IN REACH. BED ALARM ON FOR SAFETY.
--- NOTE | 2022-09-10 00:37 | NUR ---
PATIENT INCONT OF URINE. PATIENTS ATTEND CHANGED AND MARTIN CARE COMPLETED. PATIENT REPOSITIONED IN BED. NO NEEDS NOTED. CALL LIGHT IN REACH. BED ALARM ON FOR SAFETY.
--- NOTE | 2022-09-10 03:14 | NUR ---
PATIENT IS RESTING INBED WATCHING TV. PATIENT REPOSITIONED IN BED. PATIENTS ATTEND IS DRY AT THIS TIME. PATIENT REMAINS ON 2L VIA NC. CALL LIGHT IN REACH. BED ALARM ON FOR SAFETY.
--- NOTE | 2022-09-10 04:29 | NUR ---
PATIENT IS RESTING IN BED WATCHING TV. PATIENT IS ON 2L VIA NC. PATIENTS ATTEND IS DRY AT THIS TIME. NO NEEDS NOTED. CALL LIGHT IN REACH. BED ALARM ON FOR SAFETY
--- NOTE | 2022-09-10 06:18 | NUR ---
PATIENTS VITALS TAKEN AND RECORDED. ATTEND CHANGED AND MARTIN CARE COMPLETED. PATIENT REPOSITIONED IN BED. PATIENT IS ON 2L VIA NC. PATIENT DENIES ANY NEEDS. CALL LIGHT IN REACH. BED ALARM ON FOR SAFETY.
--- NOTE | 2022-09-10 09:05 | NUR ---
Spoke with Pina from [facility]. She currently has a bed open. Chart emailed. Also received a call from Astrid at [facility], in responce to my message last night. She states they have 1 female bed open in their memory care. Chart faxed.
--- NOTE | 2022-09-10 09:20 | NUR ---
REPORT RECEIVED FROM NIGHT RN AND PT CARE RESUMED. PT. IS ALERT AND ORIENTED TO SELF. ASSESSMENT COMPLETED. ASSISTED WITH BREAKFAST SETUP. SHE REMOVED NASAL CANULA AND ASSISTED WITH REPLACING. LEFT RESTING IN CHAIR WITH CURTAIN OPEN, ALARM ON
--- NOTE | 2022-09-10 10:41 | NUR ---
ROUNDING ON PT. SHE IS IN THE CHAIR EATING CRACKERS WITH [address] DENIES PAIN AND NO GRIMMACING OR SIGNS OF DISTRESS.ALARM ON
--- NOTE | 2022-09-10 11:49 | NUR ---
ROUNDING ON PT. FOUND IN THE CHAIR WITH GOWN OFF. ASSISTED WITH DRESSING. [address] PT. GIVEN REMOTE. LEFT RESTING WITH ALARM ON AND CALL LIGHT IN REACH.
--- NOTE | 2022-09-10 13:34 | NUR ---
ASSESSMENT COMPLETED. PT REFUSES TO EAT BUT DRINKING JUICE. LEFT RESTING WITH ALARM ON AND CURTAIN OPEN.
--- NOTE | 2022-09-10 14:40 | NUR ---
Lengthy visit with JODIE Ramos. He wants to explain his situation with Li. Let him know he doesn't have to explain anything to me, I do medical and not financial. Richard states Li is his aunt. She and his dad were siblings. She completed a will in 2015 which included her cousin Erica and him as the recipients of her will. In 2019 she asked Erica and he to be her co POAs. Two years ago she decided to move closer to him and he assisted her with selling her home. She gifted him money and he has been spending this money on her since. He states he made the down payment on the new home she lives in. He states concern as family members have been calling and wanting to stay in her home and are making allegations against him. I again let him know, I work on the medical side and he will need to work all of this out with [facility]. I just need to know how he wants me to proceed. I have sent the chart to [facility] and [facility] memory care. He states there is funds for 1 month of placement. He also states he was able to provide receipts to [facility] for the money he has spent on Li. He asks I proceed with placement.
--- NOTE | 2022-09-10 14:42 | NUR ---
ROUNDING ON PT. NEPHEW AND CASE MANAGEMENT AT BEDSIDE DISCUSSING DC PLAN.
--- NOTE | 2022-09-10 14:45 | NUR ---
WAITING TO GET PATIENT'S VITALS DONE. NURSE WAS NOTIFIED. WILL CHECK BACK IN.
--- NOTE | 2022-09-10 15:42 | NUR ---
PT. CHECKED AND BRIEF SATURATED WITH URINE. PT. ASSISTED WITH STANDING BY 2 STAFF AND AND WALKER. PT. NOT FOLLOWING DIRECTIONS AND STATES "I'LL SOCK YOU IF YOU DON'T LEAVE ME ALONE!" PT REASSURED OF SAFETY AND LESS AGGITATED. CLEANED AND CHANGED. GOWN ALSO CHANGED. LEFT RESTING WITH ALARM ON
--- NOTE | 2022-09-10 16:09 | NUR ---
WHEN SHE CALLED ON HER LIGHT NURSE WAS ALREADY IN THERE. THE NURSE NEEDED HELP GETTING HER OFF THE BED JAQUEZ. AND BOOST HER UP IN BED.
--- NOTE | 2022-09-10 16:30 | NUR ---
Spoke with Pina from [facility]. She states they reviewed the chart and this pt is above their level of care. They are unable to accept this pt. Called and spoke with Astrid at [facility]. She states she did not receive the fax, apparently, my fax has been down throughout the day. Secure emailed chart to Astrid. She and Cassia will review the chart.
--- NOTE | 2022-09-10 19:15 | NUR ---
RECEIVED REPORT FROM CHIRAG SORIANO. PT RESTING IN RECLINER ALERT AND ORIENTED ONLY TO SELF. CALL LIGHT WITHIN REACH, CHAIR ALARM ON, NO FURTHER NEEDS AT THIS TIME.
--- NOTE | 2022-09-10 21:20 | NUR ---
IN PT ROOM FOR WIND TURBINE TECHNICIAN AND ASSESSMENT. PT SITTING UP IN CHAIR, ORIENTED ONLY TO SELF AT THIS TIME. PT REFUSES MEDICATION W/APPLESAUCE OR JUICE. EDUCATED PT ON IMPORTANCE OF MEDICATION FOR BP AND STROKE PREVENTION AND PT STILL REFUSED AT THIS TIME. PT WAS ABLE TO TOLERATE REMERON ONLY W/ASSISTANCE OF RELIGION DEPARTMENT CHAIRKarlo HOLLAND MD NOTIFIED OF PT REFUSAL OF NIGHTTIME MEDS. PULSES ARE PRESENT THROUGHOUT, IRREGULAR. LUNGS ARE CLEAR THROUGHOUT, ACTIVE BOWEL TONES X4. PT REPORTS NO PAIN, NAUSEA, DIZZINESS, SOB, OR N/T AT THIS TIME. CALL LIGHT WITHIN REACH, NO FURTHER NEEDS AT THIS TIME.
--- NOTE | 2022-09-10 21:31 | NUR ---
IN ROOM WITH PRIMARY RN EL ATTEMPTING TO EDUCATE AND ENCOURAGE pt TO TAKE HER EVENING MEDICATIONS, SEE EMAR. HX DEMENTIA, pt EDUCATED MULTIPLE TIMES BY VARIOUS MARINE HABITAT RESOURCE SPECIALIST ON BENEFITS TO TAKING HER MEDICATIONS AND WHY THEY ARE IMPORTANT, pt ONLY TOOK ONE PILL-SEE EMAR. pt REFUSES TO TAKE REMAINING MEDICATIONS, PRIMARY RN EL TO UPDATE MD.
--- NOTE | 2022-09-10 22:30 | NUR ---
IN PT ROOM W/SCOURING MACHINE TENDER ASSISTING PT W/JESSICA STEP TO BED. NEW DEPENDS IN PLACE, MARTIN CARE PERFORMED, DESENEX IN PLACE. LARISSA RN ASSISTED PT W/ TRANSFORMER REPAIRER OF PREVIOUSLY REFUSED MEDS. PT TOLERATED WELL W/ICE CREAM. PT IS STILL CONFUSED AT THIS TIME. VSS. ASSISTED SCOURING MACHINE TENDER W/PT NOW BACK IN BED. CONTINUOUS STILL OPERATOR IN ROOM TO TAKEOVER CARE AT THIS TIME.
--- NOTE | 2022-09-11 00:21 | NUR ---
PT RESTING ON LFT SIDE W/EYES CLOSED. RESPIRATIONS EVEN AND UNLABORED, NO SIGNS OF DISTRESS. PT ON 2L OF O2 VIA NC. CALL LIGHT WITHIN REACH. BED ALARM ON.
--- NOTE | 2022-09-11 01:21 | NUR ---
IN PT ROOM D/T BED ALARM. PT SITTING AT EDGE OF BED. REORIENTED PT. 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 CALL LIGHT WITHIN REACH, NO FURTHER NEEDS AT THIS TIME.
--- NOTE | 2022-09-11 03:10 | NUR ---
PT RESTING W/EYES CLOSED ON LFT SIDE. RESPIRATIONS ARE EVEN AND UNLABORED, NO SIGNS OF DISTRESS. 2L OF O2 VIA NC IN PLACE. CALL LIGHT WITHIN REACH, BED ALARM ON.
--- NOTE | 2022-09-11 04:50 | NUR ---
PT RESTING W/EYES CLOSED LAYING ON BACK. RESPIRATIONS ARE EVEN AND UNLABORED, NO SIGNS OF DISTRESS. CALL LIGHT WITHIN REACH. 2L OF O2 VIA NC IN PLACE. PT APPEARS COMFORTABLE AT THIS TIME.
--- NOTE | 2022-09-11 06:05 | NUR ---
IN PT ROOM FOR ASSESSMENT. NO ACUTE CHANGES FROM PREVIOUS ASSESSMENT. PT REMAINS DISORIENTED AND REQUIRES REORIENTATION FREQUENTLY. PT REPORTS NO PAIN, NAUSEA, N/T, DIZZINESS, SOB AT THIS TIME. 2L OF O2 VIA NC IN PLACE. CALL LIGHT WITHIN REACH, WARM BLANKET PROVIDED. NO FURTHER NEEDS AT THIS TIME.
--- NOTE | 2022-09-11 08:10 | NUR ---
Contact Tano Yepez at [facility] to attempt to determine what help we can receive for this pt. He is on his cell phone and states I am cutting out frequently. He was able to state the POA does not have any obligation to this patient. I suggested he read the POA which was signed by this and Richard Rogers. He asks I call him back, because the medical receptionist is bad and I was not able to contact.
--- NOTE | 2022-09-11 08:15 | NUR ---
Patient up in chair this morning. Am care completed. Chair alarm set. Ice water given. Call light within reach.
--- NOTE | 2022-09-11 08:45 | NUR ---
REPORT RECEIVED FROM NIGHT RN AND PT CARE RESUMED. PT. IS UP IN THE CHAIR AND PLEASANT. ASSISTED WITH BREAKFAST. MEDS ADMINISTERED CRUSHED IN APPLE SAUCE AND ASSESSMENT COMPLETED. ATTENDS DRY. PT. LEFT RESTING WITH CALL LIGHT IN REACH AND ALARM ON.
--- NOTE | 2022-09-11 09:44 | NUR ---
PATIENT IN CHAIR AFTER MEAL. VITALS AND I/O'S COMPLETED. PT DID NOT WANT BREAKFAST BUT TOOK ENSURE. CHAIR ALARM SET. CALL LIGHT WITHIN REACH.
--- NOTE | 2022-09-11 09:50 | NUR ---
Met with Marcie Day, Risk Management, Jermaine Cowart RN, and Reji Louis RN from . Discussed Li Anthony as I was notified by Shruthi Cohen at [facility] this pt does not qualify for alf care placement. Per their look back, pt has funds and can pay for placement. Discussed my conversation with Richard and his concern of wanting to no longer be the POA and also his statements he does not plan to take patient home. He had stated she may be her a very long time. Jermaine printed the POA and gave to Marcie. Plan from our meetin. Give HINN letter to Richard showing non medical need for Li to remain in the hospital. 2. Cont. to contact [facility], residential cares, or [facility] for placement of this pt and hope, they have funds for placement. 3. Marcie will discuss this case and determine how to proceed if family do not want to take her home.
--- NOTE | 2022-09-11 10:05 | NUR ---
PATIENT CONTINUES TO EAT MINIMAL FOOD. SOMETIMES DRINKS ENSURE, SOMETIMES DOESN'T. ENSURE COMING ON BREAKFAST AND DINNER TRAY. CHANGED TO ENSURE CLEAR TO COME WITH DINNER WITH HOPES THAT SHE WILL DRINK THE JUICE BETTER THAN REGULAR ENSURE. REGULAR DIET IN PLACE.
--- NOTE | 2022-09-11 13:17 | NUR ---
PT. ATE 2 BITES OF SANDWICH BUT CONTINUES TO HAVE A POOR APPETITE. ASSESSMENT COMPLETED. 02 SAT IS 90% ON 2L NC. PT. UP IN THE CHAIR AND RESTING WITH EYES CLOSED. ALARM ON.
--- NOTE | 2022-09-11 13:24 | NUR ---
OVER TO SEE PATIENT, PATIENT SITTING UP IN CHAIR SLEEPING. WILL RETURN TO CHECK ON PATIENT WHEN SHE IS AWAKE.
--- NOTE | 2022-09-11 13:37 | NUR ---
PATIENT HAD LOW O2, NOTIFIED NURSE SABA. PT NOW ON 4 LNC.
--- NOTE | 2022-09-11 13:37 | NUR ---
PATIENT IN CHAIR AFTER MEAL. VITALS AND I/O'S COMPLETED. CHAIR ALARM SET, CALL LIGHT WITHIN REACH.
--- NOTE | 2022-09-11 14:29 | NUR ---
PLACED CALL TO BARBARA LUCIO PATIENT NEPHEW/POA. ADVISED BARBARA THAT AFTER SPEAKING WITH GHASSAN ORTIZ FROM [facility] ALONG WITH ALMA SORIANOFISCAL CLERK THAT THE PATIENT WILL NOT QUALIFY FOR SENIOR LIVING MEDICAID AND WILL NOT BE ELIGABLE FOR REASSESSMENT UNTIL 2023. BARBARA STATING HE IS FRUSTRATED BECAUSE HE JUST SPOKE WITH [facility] YESTERDAY WHO TOLD HIM HE HAD 30 DAYS TO PRESENT RECIEPT FOR FINANCIAL SPENT RELATED TO THE PATIENT CASE. I ADVISED THAT UNFORTUNATLY I AM NOT FAMILIAR WITH THE [facility] POLICY AND WAS JUST ADVISING HIM OF WHAT WE HAVE BEEN TOLD. I ALSO ADVISED BARBARA IT WOULD BE BEST FOR HIM TO CONTACT [facility] DIRECTLY TO SPEAK WITH THEM ABOUT ANY FINANCIAL ISSUES. PHONE NUMBER TO [facility] GIVEN TO BARBARA. AT THIS TIME BARBARA ASKING "DO YOU THINK i SHOULD JUST HIRE A SHIRT FINISHER." ADVISED BARBARA THAT I AGAIN DO NOT HAVE ANY LEGAL OR FINANCIAL ADVICE TO GIVE HIM ABOUT THE MATTER AND OFFERED AN APOLOGY. ADVISED BARBARA THAT HE HAS BEEN NOTIFIED BY ALMA SORIANO IN EARLIER CONVERSATIONS THAT WE WILL BE ISSUING A LANN 12 LETTER TODAY FOR NON COVERED CONTINUED STAY AND WOULD LIKE HIM TO RETURN TO SIGN IF POSSIBLE. PATIENT AGAIN DISCUSSING HIS FRUSTRATION WITH THE FINANCIAL SITUATION. BARBARA FEELS THAT THE PATIENT CORRINE SON TAWNY IS ATTEMPTING TO "STIR THE POT" AND IT IS "GOING TO FORCE ME TO JUST ABANDON HER." AT THIS TIME I DID NOTIFIY BARBARA THAT [facility] HAS AGREED TO COME EVALUATED THE PATIENT ON Wednesday09/14/22 FOR POSSIBLE PLACEMENT. BARBARA AGAIN STATING THAT EVEN IF THE PATIENT WERE TO BE ACCEPTED SHE WOULD ONLY HAVE $2200 DOLLARS PER MONTH TO PAY FOR A ROOM AND THAT HE WOULD NOT BE ABLE TO PAY THE REMAINING BALANCE. I ADVISED THAT IF [facility] AGREES TO ACCEPT THE PATIENT THAT HE SPEAK WITH THE ADMINISTRATION STAFF THERE REGARDING PAYMENT. ADVISED THAT ALL FACILITIES HAVE A BASE FEE THEN OTHER SERVICES ARE BASED ON THE PATIENT CARE NEEDS. BARBARA STATES "WELL I GUESS SHE WILL JUST HAVE TO STAY THERE UNTIL WEDNESDAY." ADVISED BARBARA HE IS WELCOME TO CONTACT CASE MANAGEMENT WITH ANY FURTHER QUESTION REGARDING THE PATIENT PLACEMENT OR CURRENT MEDICAL PLAN OF CARE.
--- NOTE | 2022-09-11 18:15 | NUR ---
PT. APPETITE SLIGHTLY IMPROVED. ATTENDS SATURATED. SHE STOOD WITH FWW AND CLEANED. LEFT RESTING IN CHAIR WITH CALL LIGHT AND ALARM ON
--- NOTE | 2022-09-11 18:25 | NUR ---
PATIENT IN CHAIR AFTER MEAL PER REQUEST. VITALS AND I/O'S COMPLETED, CALL LIGHT WITHIN REACH. CHAIR ALARM ON.
--- NOTE | 2022-09-11 19:15 | NUR ---
RECEIVED REPORT FROM CHIRAG SORIANO. PT RESTING IN RECLINER, ALERT AND WATCHING TV BUT NOT ORIENTED. PT REPORTS NO NEEDS AT THIS TIME. CALL LIGHT WITHIN REACH. 2L OF O2 VIA NC IN PLACE, O2 SATS >90% AT THIS TIME.
--- NOTE | 2022-09-11 22:00 | NUR ---
IN PT ROOM FOR ASSESSMENT, FLUORESCENT SOLUTION MIXER, VS, I/O'S. PT RESTING IN RECLINER ALERT BUT NOT ORIENTED TO ANY. PULSES PRESENT THROUGHOUT, LUNGS CLEAR THROUGHOUT, BOWEL TONES ACTIVE X4. PT REPORTS NO PAIN, NAUSEA, N/T, SOB, DIZZINESS AT THIS TIME. FLUORESCENT SOLUTION MIXER W/CHOCOLATE ICE CREAM. PT DOES NOT FOLLOW DIRECTIONS AT THIS TIME. IN ROOM FOR 40 MINUTES ASSISTING PT TO TAKE MEDS, EDUCATED ABOUT IMPORTANCE AND REORIENTED. 4L VIA NC IN PLACE, O2 SATS >90%. MARTIN CARE PERFORMED, NEW DEPENDS IN PLACE, DESENEX APPLIED. X1 INCONT. RECORDED. PT NOW BACK IN BED W/2PA W/FWW, RESTING ON RT SIDE. BED ALARM ON, CALL LIGHT WITHIN REACH, NO FURTHER NEEDS AT THIS TIME. RATE REMAINS IRREGULAR, SKIN IS INTACT, NO SIGNS OF BREAKDOWN AT THIS TIME. NEW GOWN PROVIDED.
--- NOTE | 2022-09-12 00:01 | NUR ---
PT RESTING IN BED W/EYES CLOSED. RESPIRATIONS ARE EVEN AND UNLABORED, NO SIGNS OF DISTRESS. 4L OF O2 VIA NC IN PLACE. PT APPEARS COMFORTABLE AT THIS TIME. CALL LIGHT WITHIN REACH, BED ALARM ON.
--- NOTE | 2022-09-12 01:18 | NUR ---
IN PT ROOM D/T SITTING UP IN BED. WARM BLANKET PROVIDED. BED ALARM ON, CALL LIGHT WITHIN REACH.
--- NOTE | 2022-09-12 03:38 | NUR ---
PT SITTING IN BED RESTING W/EYES CLOSED. RESPIRATIONS ARE EVEN AND UNLABORED, NO SIGNS OF DISTRESS. CALL LIGHT WITHIN REACH. 2L OF O2 VIA NC IN PLACE. PT APPEARS COMFORTABLE AT THIS TIME.
--- NOTE | 2022-09-12 05:17 | NUR ---
PT RESTING IN BED W/EYES CLOSED. PT SITTING UP IN BED. PT APPEARS COMFORTABLE AT THIS TIME. RESPIRATIONS ARE EVEN AND UNLABORED, NO SIGNS OF DISTRESS. CALL LIGHT WITHIN REACH, BED ALARM ON.
--- NOTE | 2022-09-12 06:15 | NUR ---
IN PT ROOM FOR VS, STAFF EDITOR, I/O'S, AND REPOSITIONING. PT NOW RESTING ON LFT SIDE W/PILLOWS SUPPORTING. VSS. PT REPORTS NO PAIN, NAUSEA AT THIS TIME. DRESSINGS X3 INTACT, CHERRY DRAIN INTACT, TOTAL OUPTUT FOR THIS SHIFT OF 90 ML. SMALL AMOUNT OF SS DRAINAGE W/SCANT NEW SHADOWING ON DRESSINGS X3. SCHEDULED TYLENOL GIVEN (SEE EMAR). IV ABX NOW INFUSING. IV SITE WNL. CALL LIGHT WITHIN REACH, NO FURTHER NEEDS AT THIS TIME.
--- NOTE | 2022-09-12 06:50 | NUR ---
IN PT ROOM FOR VS, ASSESSMENT, I/O'S. PT LAYING IN BED W/EYES CLOSED, AWAKENS TO VOICE. VSS. NO URINE OUTPUT THIS MORNING, DEPENDS DRY, BLADDER SCAN SHOWED X3 VOLUMES >800 ML, RELAYED TO DAYSHIFT. NO ACUTE CHANGES FROM PREVIOUS ASSESSMENT. CALL LIGHT WITHIN REACH, BED ALARM ON, NO FURTHER NEEDS AT THIS TIME. CHAPSTICK IN HAND TO OCCUPY PT.
--- NOTE | 2022-09-12 09:21 | NUR ---
PATIENT IN CHAIR AFTER MEAL. VITALS AND I/O'S COMPLETED. PT HAD LOW OXYGEN LEVEL, NURSE CHIRAG NOTIFIED. WITH INTERVENTION O2 WENT BACK UP TO 97. CHAIR ALARM ON. CALL LIGHT WITHIN REACH.
--- NOTE | 2022-09-12 09:23 | NUR ---
PT. AMBULATED WITH FWW AND SBA AROUND THE ROOM AND TOLERATED WELL. SAT ON THE BSC BUT COULD NOT VOID.
--- NOTE | 2022-09-12 11:36 | NUR ---
PT AMBULATED WITH FWW AND SBA TO COMMODE. UNABLE TO VOID. BLADDER SCAN SHOWS APPROX 600ML IN BLADDER. WILL FOLLOW UP WITH MD.
--- NOTE | 2022-09-12 12:27 | NUR ---
Urinary strait cath done at this time for urinary retention. Strait cath done using sterile technique, immediate return of alphonso colored urine-pt tolerated well. Urine sent to lab per provider order.
--- NOTE | 2022-09-12 13:28 | NUR ---
PATIENT IN BED. VITALS AND I/O'S COMPLETED. WARM BLANKETS AND ICE WATER GIVEN. BED ALARM ON. CALL LIGHT WITHIN REACH.
--- NOTE | 2022-09-12 13:37 | NUR ---
ROUNDING ON PT. SHE IS RESTING IN BED WITH EYES CLOSED AND NASAL CANULA IN PLACE. RESP. EVEN AND UNLABORED.
--- NOTE | 2022-09-12 16:58 | NUR ---
PT. RESTING IN BED LISTENING TO MUSIC. PLEASANT AND RELAXED. ASSISTED WITH DRINKING FLUIDS. BED ALARM ON.
--- NOTE | 2022-09-12 17:07 | NUR ---
PT. ASSISTED WITH DINNER SET UP. PT. ASKED IF SHE HAD CHILDREN AND STATES "YES, A SON AND DAUGHTER". WHEN ASKED THEIR NAMES SHE STATES "BARBARA AND ALVIRA". THE CHART SHOWS THIS IS CORRECT. PT. APPEARS MORE CONVERSANT AND ORIENTED.
--- NOTE | 2022-09-12 17:35 | NUR ---
PT. EATING WELL AND FEEDING HERSELF WITH A FORK. SHE DENIES NEEDS AT THIS TIME
--- NOTE | 2022-09-12 18:36 | NUR ---
PATIENT IN BED AFTER MEAL. VITALS AND I/O'S COMPLETED. PATIENT DID NOT VOID WHEN USING COMMODE. NURSE NOTIFIED. BED ALARM SET CALL LIGHT WITHIN REACH.
--- NOTE | 2022-09-12 19:59 | NUR ---
RECEIVED REPORT FROM CHIRAG SORIANO. PT RESTING IN BED W/EYES CLOSED. RESPIRATIONS ARE EVEN AND UNLABORED, NO SIGNS OF DISTRESS. PT AWAKENS TO VOICE. CALL LIGHT WITHIN REACH, PT STATES NO FURTHER NEEDS AT THIS TIME. 2L OF O2 VIA NC IN PLACE.
--- NOTE | 2022-09-12 21:30 | NUR ---
IN PT ROOM FOR ASSESSMENT. PT RESTING IN BED WATCHING TV AT THIS TIME. 2L OF O2 VIA NC IN PLACE, PT TOLERATING WELL. PT REPORTS NO PAIN, NAUSEA, DIZZINESS, N/T, OR SOB AT THIS TIME. PT IS DISORIENTED TO ALL AND FORGETFUL. PULSES PRESENT X4, BOWEL TONES ACTIVE IN ALL, LUNGS CLEAR THROUGHOUT. SKIN IS PINK/DRY/WARM. WARM BLANKET PROVIDED. CALL LIGHT WITHIN REACH. PT REPORTS NO FURTHER NEEDS AT THIS TIME.
--- NOTE | 2022-09-12 21:31 | NUR ---
in room per request of primary rn to give evening meds, pt awake and interactive with vacuum furnace operator. when attmepted to give evening meds, pt refused multiple times as she's done in previous shifts. pt educated and attempted to allow pt to take her own meds via spoon. pt would distract staff and proceed to ask various questions, pt redirected but again refuses medications. dr dial made aware. will try again before bed, but no need to call md again if pt continues to refuse evening meds. primary rn mel updated.
--- NOTE | 2022-09-12 23:00 | NUR ---
RETURNED TO ROOM AND ATTEMPTED AGAIN TO GET pt TO TAKE HER EVENING MEDS, pt CONTINUES TO REFUSE AND PUT HER HANDS IN THE AIR AND WAVES THIS RN AWAY AND STATES, "NO MA'AM, I'M GOOD. I DON'T NEED THEM". PRIMARY RN NOTIFIED.
--- NOTE | 2022-09-13 00:28 | NUR ---
W/ASSISTANCE OF SANDEE TOSCANO, PT UP TO COMMODE W/FWW AND 2PA. RUNNING WATER IN BACKGROUND, AFTER 10 MIN OF ATTEMPT TO VOID NO PROGRESS. NEW DEPENDS AND MARTIN CARE PERFORMED. SKIN ON BACK END IS C/D/I, NO SIGN OF BREAKDOWN AT THIS TIME. PT NOW RESTING BACK IN BED W/WARM BLANKET. BLADDER SCAN SHOWED 442 ML IN BLADDER AT THIS TIME. PT PROVIDED W/ICE WATER TO STIMULATE VOID. CALL LIGHT WITHIN REACH.
--- NOTE | 2022-09-13 01:55 | NUR ---
ANSWERED PT CALL LIGHT, PT STATES SHE NEEDS TO VOID. THIS RN AND JOHN RN ASSISTED PT TO BEDSIDE COMMODE VIA FWW W/2PA. AFTER 10 MIN OF ENCOURAGING TO VOID USING WATER TRICKLING AND DRINKING WATER METHOD, PT WAS NOT SUCCESSFUL. MARTIN CARE PERFORMED, DESENEX APPLIED. PT NOW BACK IN BED. BLADDER SCAN SHOWS 468 ML IN BLADDER AT THIS TIME. NO ACUTE CHANGES FROM PREVIOUS ASSESSMENT. CALL LIGHT WITHIN REACH. NO FURTHER NEEDS AT THIS TIME. BED ALARM ON.
--- NOTE | 2022-09-13 02:19 | NUR ---
CALLED SKYLER CALDERÓN REGARDING PT URINARY RETENTION. NEW ORDERS FOR STRAIGHT CATH WHEN BLADDER SCAN >500 ML.
--- NOTE | 2022-09-13 03:45 | NUR ---
PT RESTING IN BED W/EYES CLOSED. RESPIRATIONS ARE EVEN AND UNLABORED, NO SIGNS OF DISTRESS. CALL LIGHT WITHIN REACH. 2L VIA NC IN PLACE. PT APPEARS COMFORTABLE AT THIS TIME.
--- NOTE | 2022-09-13 05:50 | NUR ---
IN PT ROOM FOR BLADDER SCAN AND VS, BLADDER SCAN SHOWS 542 ML. PER ORDERS, STRAIGHT CATH OF PT PERFORMED BY ROBERT SORIANO. ELIAS RN AND JOHN SORIANO IN ROOM FOR POSITIONING ASSISTANCE. VERIFIED NO ALLERGIES TO LATEX. PT TOLERATED WELL, OUTPUT RECORDED W/IMMEDIATE RETURN OF URINE. PT NOW RESTING IN BED AFTER NEW DEPENDS AND BED CHANGE. CALL LIGHT WITHIN REACH. PT STATES NO FURTHER NEEDS AT THIS TIME. STERILITY MAINTAINED DURING PROCEDURE.
--- NOTE | 2022-09-13 07:42 | NUR ---
PT RESTING IN BED QUIET AND ALERT AT TIME OF SHIFT REPORT. PT IS UPBEAT AND TAKLATIVE. APPEARS IMPROVED OVER LAST WEEK, MORE INTERACTIVE, SELF FEEDING CRACKERS, APPEARS ENERGETIC, TALKING A LOT ASKING QUESTIONS. UP TO THE CHAIR, ALARM IN PLACE FRESH H20 AND NEEDED ITEMS IN REACH.
--- NOTE | 2022-09-13 08:12 | NUR ---
Patient up in chair watching television. Am care completed. Chair alarm set. Call light within reach.
--- NOTE | 2022-09-13 09:01 | NUR ---
PATIENT IN CHAIR AFTER MEAL. VITALS AND I/O'S COMPLETED. PATIENT STATES SHE "DOES NOT HAVE TO USE THE RESTROOM". WILL FOLLOW UP WITH HER IN A HALF AN HOUR. CHAIR ALARM SET. CALL LIGHT WITHIN REACH.
--- NOTE | 2022-09-13 10:55 | NUR ---
PT CONTINUES UP IN THE CHAIR TOLERATES LESS THAN 50% OF MORNING MEAL. REFUSES PO MEDICATIONS. ENCOURAGED AND REMINDED HER WHAT THEY ARE FOR CONTINUES TO REFUSE.
--- NOTE | 2022-09-13 14:16 | NUR ---
PT CONTINUES UP IN THE CHAIR WATCHING TV DENIES NEEDS OF. SNACK AND DRINKS OFFERED SHE REFUSES. DENIES DISCOMFORTS
--- NOTE | 2022-09-13 14:28 | NUR ---
PATIENT IN BED AFTER MEAL. VITALS AND I/O'S COMPLETED. BED ALARM SET. CALL LIGHT WITHIN REACH.
--- NOTE | 2022-09-13 17:46 | NUR ---
PT TO BED THIS AFTERNOON FOR A SHORT NAP, RETURNS TO SITTING UP IN THE CHAIR. EATING EVENING MEAL NOW
--- NOTE | 2022-09-13 17:54 | NUR ---
PATIENT IN CHAIR AFTER DINNER. VITALS AND I/O'S COMPLETED. CHAIR ALARM SET, CALL LIGHT WITHIN REACH.
--- NOTE | 2022-09-13 18:59 | NUR ---
STILL NO URINE OUTPUT FROM THIS PT. MOVED HER TO [facility] NO VOID. RESTING IN BED NOW BLADDER SCANNED FOR 232 MLS. REPORTED NO URINE OUTPUT TO DR HOLLAND AROUND 1600 OR SO NOC RN'S NOTIFIED
--- NOTE | 2022-09-13 19:15 | NUR ---
RECEIVED REPORT FROM MARVIN SORIANO. PT RESTING IN BED WATCHING TV. PT STATES NO FURTHER NEEDS AT THIS TIME, CALL LIGHT WITHIN REACH, BED ALARM ON FOR SAFETY.
--- NOTE | 2022-09-13 20:30 | NUR ---
PER REPORT PT HAS NOT VOIDED DURING DAY SHIFT, BLADDER SCAN OF 232 ML PER START OF SHIFT. CALLED MD MONTES AND UPDATED HER ON PT RETENTION, NO NEW ORDERS AT THIS TIME. PT IS NOT SYMPTOMATIC AND STATES SHE IS IN NO PAIN AT THIS TIME.
--- NOTE | 2022-09-13 21:40 | NUR ---
IN PT ROOM FOR VS, I/O'S, COMMUNITY SERVICE DIRECTOR, AND ASSESSMENT. PT IS NOT ORIENTED TO ANY AT THIS TIME AND IS FREQUENTLY CONFUSED AND FORGETFUL. PT STATES NO PAIN, NAUSEA, SOB, N/T, OR DIZZINESS AT THIS TIME. PULSE PRESENT X4, LUNGS CLEAR THROUGHOUT, DIMINISHED IN BASES, ACTIVE BOWEL TONES X4. PT TOLERATED MAJORITY OF MEDS IN CHOCOLATE PUDDING, BUT REFUSED CARDIZEM AND 1 OF 2 METOPROLOL. PT REMAINS ON 2L OF O2 VIA NC AND TOLERATING WELL AT THIS TIME, O2 AT 96%. CALL LIGHT WITHIN, NO FURTHER NEEDS AT THIS TIME.
--- NOTE | 2022-09-13 23:47 | NUR ---
PT RESTING W/EYES CLOSED. RESPIRATIONS ARE EVEN AND UNLABORED, NO SIGNS OF DISTRESS. CALL LIGHT WITHIN REACH, BED ALARM ON. 2L OF O2 VIA NC IN PLACE AT THIS TIME.
--- NOTE | 2022-09-14 01:40 | NUR ---
IN PT ROOM D/T SITTING UP IN BED W/O2 OFF. REPLACED O2 AND PROVIDED PT W/WARM BLANKET AND DRINK OF WATER. PT NOW RESTING WATCHING TV. NO ACUTE CHANGES FROM PREVIOUS ASSESSMENT. PT REPORTS NO PAIN, NAUSEA, DIZZINESS, N/T, OR SOB AT THIS TIME. PT REMAINS DUE TO VOID, MD AWARE. CALL LIGHT WITHIN REACH, NO FURTHER NEEDS AT THIS TIME.
--- NOTE | 2022-09-14 03:28 | NUR ---
IN PT ROOM D/T BEEPING PUMP ASSISTED PT W/STRAIGHTENING LEG AND POSITIONING ON PILLOW, ICE PACK PROVIDED FOR KNEE. PT NOW RESTING W/EYES CLOSED. RESPIRATIONS ARE EVEN AND UNLABORED, NO SIGNS OF DISTRESS. PT ASKED FOR WATER FOR DRY MOUTH, REMINDED HIM OF NPO STATUS FOR SURGERY, OFFERED MOUTH SWABS, PT SAID "NOT YET". CALL LIGHT WITHIN REACH, NO FURTHER NEEDS AT THIS TIME.
--- NOTE | 2022-09-14 03:36 | NUR ---
PT O2 VIA NC OFF NOSE. REPLACED AND EDUCATED ABOUT IMPORTANCE OF O2 DEVICE, PT STATED VERBAL UNDERSTANDING. 2L OF O2 VIA NC IN PLACE. WARM BLANKET PROVIDED FOR PT. PT NOW RESTING IN BED AT THIS TIME. CALL LIGHT WITHIN REACH, NO FURTHER NEEDS.
--- NOTE | 2022-09-14 03:59 | NUR ---
IN PT ROOM D/T PT STATES NEED TO USE COMMODE. 2PA W/FWW TO BEDSIDE COMMODE. SMALL SMEAR OF BM IN DEPENDS, NO URINE VOID AT THIS TIME. PT NOW BACK IN BED. MARTIN CARE PERFORMED, DESENEX IN PLACE, NEW DEPENDS IN PLACE. BLADDER SCANNED PT AND RESULT OF 429 ML AT THIS TIME. O2 VIA NC IN PLACE, PT NOW RESTING IN BED. CALL LIGHT WITHIN REACH, NO FURTHER NEEDS AT THIS TIME.
--- NOTE | 2022-09-14 05:09 | NUR ---
PT RESTING W/EYES CLOSED. RESPIRATIONS ARE EVEN AND UNLABORED, NO SIGNS OF DISTRESS. CALL LIGHT WITHIN REACH. 2L OF O2 VIA NC IN PLACE.
--- NOTE | 2022-09-14 05:52 | NUR ---
PATIENT'S BLADDER SCANNED SHOWS 515ML. PRIMARY RN EL NOTIFIED.
--- NOTE | 2022-09-14 07:27 | NUR ---
PT UP IN THE CHAIR ALERT AT TIME OF SHIFT REPORT. PT DRINKING FLUIDS, UPBEAT AND TALKATIVE. DENIES THE NEED TO VOID, DENIES ANY DISCOMFORT.
--- NOTE | 2022-09-14 10:51 | NUR ---
PT HAS REMAINED UP IN THE CHAIR THIS SHIFT, NO ATTEMPTS TO GET UP UNATTENDED. ASSISTED FACILITY COME FOR INTERVIEW PT IS COOPERATIVE. UP TO BSC ABLE TO HAVE A BM, NO URINE OUTPUT. REMAINS UP IN THE CHAIR AT THIS TIME
--- NOTE | 2022-09-14 12:03 | NUR ---
SPOKE WITH BARBARA, ADVISED THAT [facility] HAS ACCEPTED THE PATIENT AT THIS TIME. ADVISED THAT THE PATIENT HAS SHOWEN IMPROVEMENT COGNITAVELY AND PHYSICALLY OVER THE WEEKEND. BARBARA STATES HE IS STILL WORKING WITH [facility] ON CORRECTION PAYMENT FOR INTERMEDIATE, BUT IS AWARE SHE WILL NEED TO BE PLACED. CONTACT INFORMATION GIVEN FOR KAYY AT [facility] TO DISCUSS FINANCIAL ARRANGEMENTS. BARBARA STATES HE WILL BE UP AFTER LUNCH TO VISIT THE PATIENT.
--- NOTE | 2022-09-14 14:03 | NUR ---
PT NEPHEW, AND HIS , IN TO SEE PT WHO VISITS ACTIVELY AND APPEARS IN GOOD SPIRITS. SHE CONTINUES UP IN THE CHAIR THIS SHIFT, DRINKING WATER AND WATCHING TV. SHE DENIES DISCOMFORTS OR NEEDS OF. APPETITE MUCH IMPROVED EATS 75% OF NOON MEAL.
--- NOTE | 2022-09-14 14:11 | NUR ---
PT TO BSC ABLE TO PASS URINE, REQUESTS TO GO TO BED FOR A NAP. SBA WITH FWW WELL TOLERATED
--- NOTE | 2022-09-14 14:22 | NUR ---
PT UP WORKING WITH P/T
--- NOTE | 2022-09-14 14:43 | NUR ---
PT UP TO AMBULATE WITH STAFF AND FWW. SHE IS ABLE TO AMBULATE FROM CHAIR TO THE FOOT OF THE BED AND THEN SAYS "THAT'S MY LIMIT" PT AMBULATES BACKWARD TO CHAIR AND SITS. CHAIR ALARM IS SET, PT RESTING WITH HER FEET UP.
--- NOTE | 2022-09-14 17:11 | NUR ---
PT UP IN THE CHAIR EATING EVENING MEAL.
--- NOTE | 2022-09-14 19:27 | NUR ---
REPORT RECEIVED FROM DAY SHIFT RN. PT SITTING IN RECLINER WATCHING TV. DENIES NEEDS. CHAIR ALARM IN PLACE. WHITE BOARD UPDATED. CALL LIGHT IN REACH.
--- NOTE | 2022-09-14 20:14 | NUR ---
PT BACK TO BED WITH 1PA AND FWW. GAIT STEADY. ADEBAYO WELL. VS AND I&O COMPLETE. PT WITH NO VOID, DECLINED BSC. ATTENDS DRY. ABLE TO ADMIN SOME EVENING MEDS CRUSHED IN APPLESAUCE. PT REFUSING TO SWALLOW TABLETS, METOPROLOL NOT GIVEN. EVENING ASSESSMENT COMPLETE. PT DENIES SOB. 2L/NC IN PLACE. LUNGS CLEAR. WARM BLANKETS PROVIDED. NO FURTHER NEEDS AT THIS TIME. BED ALARM IN PLACE. CALL LIGHT IN REACH.
--- NOTE | 2022-09-14 23:29 | NUR ---
PT RESTING IN BED WITH EYES CLOSED. RESPIRATIONS EVEN. CALL LIGHT IN REACH. BED ALARM FOR SAFETY.
--- NOTE | 2022-09-15 00:14 | NUR ---
PT SITTING UP IN BED WAVING. IN TO ASSIST TO BSC WITH FWW AND 1PA. PT INCONTINENT OF URINE AND SMALL BM. STAFF ASSIST WITH MARTIN CARE. CLEAN BRIEF IN PLACE. BACK TO BED, ADEBAYO WELL. PT REQUIRES FREQUENT QUEING. ASSITED WITH SIPS OF WATER. NO FURTHER NEEDS. BED ALARM FOR SAFETY. CALL LIGHT IN REACH.
--- NOTE | 2022-09-15 02:05 | NUR ---
BED ALARM SOUNDING. IN TO ASSIST TO REPOSITION IN BED. ASSISTED WITH SIPS OF WATER. BED ALARM ON. CALL LIGHT IN REACH.
--- NOTE | 2022-09-15 04:52 | NUR ---
PT RESTING IN BED WITH EYES CLOSED. RESPIRATIONS EVEN. 2L/NC IN PLACE. HOB ELEVATED. BED ALARM FOR SAFETY. CALL LIGHT IN REACH.
--- NOTE | 2022-09-15 06:15 | NUR ---
PT UP TO BSC TO VOID 125 ML CONCENTRATED URINE AND HAVE SMEAR BM WITH 1PA AND FWW. STAFF ASSIST WITH MARTIN CARE. CLEAN ATTENDS IN PLACE. BACK TO BED. GAIT STEADY. PT BLADDER SCANNED FOR 655 ML. VS AND I&O COMPLETE. WARM BLANKETS PROVIDED. BED ALARM FOR SAFETY. CALL LIGHT IN REACH.
--- NOTE | 2022-09-15 06:25 | NUR ---
DR. MONTES NOTIFIED OF URINARY RETENTION. NO NEW ORDERS AT THIS TIME.
--- NOTE | 2022-09-15 07:05 | NUR ---
PT UP TO CHAIR SBA FWW. PT REQUEST SELF FOR BREAKFAST. CALL LIGHT WITHIN REACH NO FURTHER TASKS AT THIS TIME.
--- NOTE | 2022-09-15 07:20 | NUR ---
REPORT FROM STEPHIE RN, PT UP IN WITH CALL LIGHT IN REACH CH ALARM AND VISIBLE TO RN STATION. DENIES NEEDS.
--- NOTE | 2022-09-15 08:19 | NUR ---
Called [facility] to speak with Astrid. Per BAISL Dean, she gave Richard the infor to contact [facility] for Li to be placed into memory care. She is out of her office, but staff will have her call me. I will check the room for WINN letter to see if Richard has signed. Richard was notified of this letter last Wednesday and again today by Jermaine.
--- NOTE | 2022-09-15 08:50 | NUR ---
IN WITH PT FOR MEDS, SHE TOOK MOST ORALS AND REFUSED MIRALAX, SHE IS ASKING TO SEE HER MOM WHOM SHE THINKS IS IN THE [facility], TELLS ME MY PARENTS ARE REALLY NICE AND SHE KNOWS THEM...(SHE DOES NOT) PT IN WATCHING TV ONLY ORIENTED TO SELF.
--- NOTE | 2022-09-15 11:30 | NUR ---
pt assisted to bsc to void and med bm, inc of urine - cleaned and attends changed. pt assisted back to after cleaned. call light in reach and lunch provided.
[2022-09-15] MEDS ORDERED: TAMSULOSIN HCL0.4 MG PO (11:44)
[2022-09-15] MEDS ORDERED: ELIQUIS5 MG PO (11:52)
[2022-09-15] MEDS ORDERED: METOPROLOL SUC100 MG PO (11:52)
[2022-09-15] MEDS ORDERED: ACETAMINOPHEN500 MG PO (11:53)
[2022-09-15] MEDS ORDERED: DILTIAZEM ER300 MG PO (11:53)
[2022-09-15] MEDS ORDERED: MIRTAZAPINE15 MG PO (11:53)
[2022-09-15] MEDS ORDERED: VENLAFAXINE HCL75 M1 PO (11:54)
[2022-09-15] MEDS ORDERED: TRAZODONE HCL50 MG PO (11:54)
[2022-09-15] MEDS ORDERED: ARIPIPRAZOLE5 MG PO (11:55)
[2022-09-15] MEDS ORDERED: STIMULANT LAXA1 EACH PO (11:57)
[2022-09-15] MEDS ORDERED: HEALTHYLAX17 GM PO (11:58)
--- NOTE | 2022-09-15 13:45 | NUR ---
PT WAVES AT THIS RN, ASKED IF SHE NEEDED ANYTHING, SHE SAYS TELL YOUR PARENTS GAYATHRI! CALL LIGHT IN REACH - PT CONFUSED ORIENTED TO HERSELF, CALL LIGHT IN REACH.
--- NOTE | 2022-09-15 16:00 | NUR ---
PT DENIES NEEDS, ALERT - CONFUSED, WATER IN REACH.
--- NOTE | 2022-09-15 16:03 | NUR ---
Patient's appetite has improved. She is now eating 50-100% of meals. Regular diet in place. Will continue with Ensure Plus High Protein for breakfast and Ensure Clear for dinner.
--- NOTE | 2022-09-15 17:45 | NUR ---
PATIENT UP TO BSC THEN TO BED FROM CHAIR, 1PA FWW. VITALS AND I&O'S CHARTED. CALL LIGHT IN REACH. BED ALARM ON. NO FURTHER NEEDS AT THIS TIME.
--- NOTE | 2022-09-15 19:41 | NUR ---
REPORT RECEIVED FROM DAY SHIFT RN. PT LYING IN BED AWAKE. DENIES NEEDS. WHITE BOARD UPDATED. CALL LIGHT IN REACH. BED ALARM FOR SAFETY.
--- NOTE | 2022-09-15 21:55 | NUR ---
PT UP TO BSC TO VOID 300 ML CONCENTRATED URINE WITH 1PA AND FWW. STAFF ASSIST WITH MARTIN CARE. PT REQUESTING TO SIT IN RECLINER. CHAIR ALARM IN PLACE. SCHEDULED MEDS ADMIN PER EMAR. EVENING ASSESSMENT COMPLETE. PT DENIES PAIN OR NAUSEA. DENIES SOB. 2L/NC IN PLACE. EVENING SNACK PROVIDED PER REQUEST. CALL LIGHT IN REACH. PT IN VIEW OF NURSES STATION.
--- NOTE | 2022-09-16 00:19 | NUR ---
PT BACK TO BED WITH FWW AND 1PA. GAIT STEADY. PT NEEDS FREQUENT QUEING. ASSISSTED TO REPOSITION. NO FURTHER NEEDS. BED ALARM FOR SAFETY.
--- NOTE | 2022-09-16 03:23 | NUR ---
PT RESTING IN BED WITH EYES CLOSED. RESPIRATIONS EVEN. BED ALARM IN PLACE. CALL LIGHT IN REACH.
--- NOTE | 2022-09-16 05:19 | NUR ---
BED ALARM SOUNDING. PT UP TO BSC WITH 1PA AND FWW TO VOID 250 ML CONCENTRATED CLOUDY URINE. STAFF ASSIST WITH MARTIN CARE. BACK TO BED, ADEBAYO WELL. GAIT STEADY. PT PLEASANTLY CONFUSED. SITTING UP IN BED WITH COLORING PAGES AND PROVIDED SNACK. DENIES FURTHER NEEDS. BED ALARM FOR SAFETY. CALL LIGHT IN REACH.
--- NOTE | 2022-09-16 06:59 | NUR ---
PATIENT UP TO CHAIR FROM BED, 1PA FWW. BLANKETS AND COFFEE GIVEN. CHAIR ALARM ON. CALL LIGHT IN REACH. NO FURTHER NEEDS AT THIS TIME.
--- NOTE | 2022-09-16 07:20 | NUR ---
pt up in chair - report from Wnady torres, pt has call light in reach.
--- NOTE | 2022-09-16 10:00 | NUR ---
pt dc to [facility] via w/c with transport. continues to be confused and pleasant today. clothing returned to pt and dressed. dc packet from [facility] to pt.
--- NOTE | 2022-09-16 10:23 | NUR ---
RECEIVED FAX FROM [facility] WITH ORDER TO SIGN. DR MONTES SIGNED, FAXED BACK WITH CONFIRMATION. PATIENT ORDERS, CHART PACK WITH RX GIVEN TO STAFF NURSES. CALLED [facility], THEY HAVE NOT HAD OXYGEN DELIVERY YET. CALLED [facility], KIMBERLEE STATES PRINTING FILM STRIPPER IS ON HIS WAY, TO SEND PATIENT HOME WITH LARGE TANK. GAS TURBINE ASSEMBLER RETRIEVED TANK, PATIENT LEFT WITH STAFF TO FRONT OF HOSPITAL FOR W/C VAN TRANSPORT.
== END 2022-09-16 10:00 | DRG 177 ==
LOC: ED 17:19 → MS 22:56 → CCU 08-28 19:33 → MS 09-02 14:40
PROVIDERS: ADMIT Family Medicine; ATTEND Internal Medicine
PROC: XW033E5 Introduction of Remdesivir Anti-infective into Peripheral Vein, Percutaneous Approach, New Technology Group 5 (ICD-10-PCS; principal; 2022-08-26)
PROC: 3E0333Z Introduction of Anti-inflammatory into Peripheral Vein, Percutaneous Approach (ICD-10-PCS; 2022-08-26)
PROC: 3E0DX3Z Introduction of Anti-inflammatory into Mouth and Pharynx, External Approach (ICD-10-PCS; 2022-09-02)
DX: U07.1 COVID-19 (principal); G93.41 Metabolic encephalopathy; J96.01 Acute respiratory failure with hypoxia; J12.82 Pneumonia due to coronavirus disease 2019; M62.82 Rhabdomyolysis; N17.9 Acute kidney failure, unspecified; N18.30 Chronic kidney disease, stage 3 unspecified; I50.9 Heart failure, unspecified; M54.9 Dorsalgia, unspecified; F03.90 Unspecified dementia, unspecified severity, without behavioral disturbance, psychotic disturbance, mood disturbance, and anxiety; N30.90 Cystitis, unspecified without hematuria; B96.20 Unspecified Escherichia coli [E. coli] as the cause of diseases classified elsewhere; E87.6 Hypokalemia; R33.9 Retention of urine, unspecified; E07.81 Sick-euthyroid syndrome; G89.4 Chronic pain syndrome; Z90.710 Acquired absence of both cervix and uterus; Z98.890 Other specified postprocedural states; Z79.899 Other long term (current) drug therapy; W18.39XA Other fall on same level, initial encounter; Y92.009 Unspecified place in unspecified non-institutional (private) residence as the place of occurrence of the external cause
CPT/HCPCS: 36415; 36600; 70450; 71045; 71046; 73030; 80048; 80053; 81001; 81003; 82140; 82553; 82607; 82803; 83735; 83880; 84100; 84439; 84443; 84481; 84484; 85025; 87040; 87088; 87186; 87502; 93005; 93010; 93306; 94760; 94761; 94762; 97110; 97116; 97163; 97164; 97166; 97168; 97530; 97535; A9270; J0248; J0696; J1100; J1630; J1650; J1885; J2060; J2405; J3480; J7050; J7070; J7121; J8540; U0003

== ENCOUNTER 2023-01-06 10:08 | Emergency (ER) | payer MEDICARE ==
[~2023-01-06] VITALS: Ht 152.4 cm; Wt 97.5 kg
[~2023-01-06 10:08] MED LIST: ACETAMINOPHEN500 MG PO; ARIPIPRAZOLE2 MG PO; ARIPIPRAZOLE5 MG PO; DILTIAZEM ER300 MG PO; ELIQUIS5 MG PO; HEALTHYLAX17 GM PO; K-TAB ER20 MEQ PO; LIDODERM1 EACH TD; MELOXICAM15 MG PO; METOLAZONE2.5 MG PO; METOPROLOL SUC100 MG PO; MIRTAZAPINE15 MG PO; OXYCODONE HCL5 MG PO; POTASSIUM CHLO20 ME2 PO; PREGABALIN100 MG PO; PREGABALIN50 MG PO; STIMULANT LAXA1 EACH PO; TAMSULOSIN HCL0.4 MG PO; TORSEMIDE20 MG PO; TRAZODONE HCL50 MG PO; VENLAFAXINE HC150 MG PO; VENLAFAXINE HCL75 M1 PO
[2023-01-06 18:30] VITALS: BP 107/46
== END 2023-01-06 18:25 | disposition home or self-care (01) ==
LOC: ED 10:08
DX: S09.90XA Unspecified injury of head, initial encounter (principal); W01.0XXA Fall on same level from slipping, tripping and stumbling without subsequent striking against object, initial encounter; I50.9 Heart failure, unspecified; Z79.899 Other long term (current) drug therapy; Z79.01 Long term (current) use of anticoagulants; Z20.822 Contact with and (suspected) exposure to COVID-19
CPT/HCPCS: 36415; 70450; 70486; 72125; 80053; 85025; C9803; G0480; U0003

== ENCOUNTER 2023-01-09 04:14 | Emergency (ER) | payer MEDICARE ==
[~2023-01-09] VITALS: Ht 152.4 cm; Wt 97.5 kg
[2023-01-09] MEDS ORDERED: MACROBID 100 M100 MG PO (05:14)
[2023-01-09 07:46] VITALS: BP 105/53
== END 2023-01-09 07:45 | disposition home or self-care (01) ==
LOC: ED 04:14
DX: N39.0 Urinary tract infection, site not specified (principal); S00.81XA Abrasion of other part of head, initial encounter; W19.XXXA Unspecified fall, initial encounter; M54.9 Dorsalgia, unspecified; I50.9 Heart failure, unspecified; Z79.899 Other long term (current) drug therapy; Z79.01 Long term (current) use of anticoagulants
CPT/HCPCS: 36415; 51701; 70450; 72125; 80053; 81001; 82553; 85025; 99284-25; A9270; J0696

== ENCOUNTER 2023-01-18 18:08 | Inpatient (IN) | payer MEDICARE ==
[2023-01-18] VITALS (7 sets, daily range): BP systolic 102–133; BP diastolic 47–100
[~2023-01-18] VITALS: Ht 152.4 cm; Wt 85.1 kg
[~2023-01-18 18:08] MED LIST changes: +MACROBID 100 M100 MG PO
--- NOTE | 2023-01-18 22:10 | NUR ---
PT NEW ADMIT TO ICU. FULL BEDSIDE NURSE REPORT OBTAINED FROM ED NURSE. PT TRANSFERRED FROM ED [facility] TO HOSPITAL BED. PT IMMEDIATELY C/O SEVERE PAIN IN HER L. HIP. FURTHER HIP ASSESSMENT REVEALS SEVERE PAIN WITH MOVEMENT, FAINT PULSES IN L. FOOT, AND SLIGHTER SHORTENING IN THE L. FOOT THAN RIGHT. NO MEDIAL OR LATERAL ROTATION NOTED. NO IMAGES HAVE BEEN PERFORMED. WILL REPORT TO MD. PT CONNECTED TO MONITOR. BASELINE VITALS OBTAINED. ALARM PERAMETERS SET. LS CLEAR TO DIMINISHED IN THE BASIS. PT IS NOTED TO HAVE GENERALIZED CONFUSION, ONLY ALERT TO PERSON. PT FOLLOWS SIMPLE COMMANDS, EQUAL AND BILATERAL AUTOMATIC HEMMER IN UPPER EXTREMITIES, EQUAL PUSH/ PULL IN LOWER EXTREMITY. NEW PIV STARTED, MARTIN CAREPERFORMED AND PUREWICK PLACED. PT INSTRUCTED ON USE OF CALL LIGHT, AND CALL LIGHT PLACED ON PTS SIDE.
--- NOTE | 2023-01-18 22:45 | NUR ---
PT TRANSFERRED TO XRAY FOR STUDY OF L. HIP. STUDY PERFORMED WITHOUT PROBLEM. PT TRANSFERRED BACK TO ICU.
[2023-01-19] VITALS (14 sets, daily range): BP systolic 91–143; BP diastolic 49–92
--- NOTE | 2023-01-19 06:44 | NUR ---
PT REMAINS ALERT TO SELF ONLY. PT CONTINUES TO FOLLOW SIMPLE COMMANDS AND MOVES ALL FOUR EXTREMITIES WITH PURPOSE. PT HAS BEEN IN A-FIB, NORMOTENSIVE AND A-FEBRILE. PT'S RESPIRATIONS ARE NON-LABORED. PT RE-ORIENTED MULTIPLE TIMES THROUGHOUT THE NIGHT. PUREWICK PLACED WITH TWO RNS PRESENT. PT TOLERATED WELL. PT WITH 700 CC UO NOTED. LAST BM UNKNOWN, HOWEVERM, PT WAS BIBA INCONT. OF FECES. LABS: K IMPROVED FROM 2.9 TO 3.1. PT CONTINUES TO RECEIVE LR WITH 20 OF K AT 100 CC/HR. CREATNINE IMPROVED FROM 1.74 TO 1.18.
--- NOTE | 2023-01-19 08:25 | NUR ---
IN PATIENT'S ROOM FOR ASSESSMENT, VITALS AND MUFFLER INSTALLER. PATIENT IS NOT ABLE TO STATE HER NAME OR , BUT DOES RESPOND TO HER NAME. PT ANSWERS SIMPLE QUESTIONS WITH YES/NO AND DOES FOLLOW COMMANDS. PT NOTED TO HAVE LARGE INCONTINENCE OF STOOL, COVERING PUREWICK. ATTENDS, CHUX AND NEW DRAW SHEET PLACED UNDER PATIENT. PT DOES STATE HER LEGS HURT AND IS SAYING "OWE" FAIRLY FREQUENTLY. 0XYGEN ON 3 L NC, AND TITRATED DOWN TO 1 L. PT SHALLOW BREATHING, AND SOME FINE CRACKLES HEARD IN LOWER LUNGS. SOME EDEMA PRESENT IN ANKLES, WITH WRINKLING OF SKIN INDICATING PREVIOUS TIMES OF SWOLLEN LEGS. PT REMAINS IN AFIB, 90-100s AT THIS TIME. IVF CONTINUE AT 100 ML/HR. PT BARELY ATE ANY BREAKFAST AND A VANILLA ENSURE TO BE PROVIDED.
--- NOTE | 2023-01-19 08:30 | NUR ---
PATIENT INCONTINENT OF STOOL. PUREWICK, CHUK AND DRAWSHEET REPLACED. PATIENT TOLERATED ROLLING FOR ACTIVITY. REPOSITIONED IN BED, ATE VERY LITTLE FOR BREAKFAST, ENSURE PROVIDED. RN AT BEDSIDE.
--- NOTE | 2023-01-19 09:09 | NUR ---
PT FLUID INFUSION DISCONTINUED PER ORDER. BOTH IV'S FLUSHED WITH 10ML NORMAL SALINE. PT RESTING IN BED WITH BEDRAIL UP FOR SAFETY, CALL LIGHT WITHIN REACH. PT DENIES NEEDS AT THIS TIME.
--- NOTE | 2023-01-19 10:23 | NUR ---
PHYSICAL THERAPIST JETT IN ROOM WITH PT, ASSISTING HER TO AND FROM BSC WITH WALKER.
--- NOTE | 2023-01-19 10:57 | NUR ---
DR. WELDON IN TO SEE PATIENT. PLAN OF CARE BEING DISCUSSED. PT STILL C/O PAIN IN HER LEGS THAT SHE DESCRIBES A BURNING PAIN. PT IS UP IN CHAIR AND MOVED WITH 1 PERSON ASSIST. ORTHO VITALS TO BE OBTAINED. PT WILL MOVE TO MED/SURG ON TELE.
--- NOTE | 2023-01-19 11:57 | NUR ---
Rocío and I spoke with Dr. Eldridge. Per pt will need placement to a SNF. Chart faxed to SHAINA at T. Facesheet, H&P, progress notes, labs, imaging.
--- NOTE | 2023-01-19 12:48 | NUR ---
LUNA ON TELE #2 AND REMAINS IN AFIB. PT TO TRANSFER TO MED/SURG 121.
--- NOTE | 2023-01-19 12:48 | NUR ---
REPORT GIVEN TO BO SPENCER AND ALL BELONGINGS WILL BE TAKEN WITH PATIENT.
--- NOTE | 2023-01-19 13:15 | NUR ---
Spoke with Malcolm at 0840 this am. She is a very poor memory. She knows she is in a hospital, but is unsure of the name or town. She does not know her phone number, address, or cg name. She does state she uses a wc and a walker. At this point she begins to state, "yes" to everything. I will call family to clarify. Her neice by marriage had called last night to ask if I though pt would qualify for an IP admission. She states pt was not speaking and unable to ambulate. She had a UTI last week. They were unable toget her out of her chair. I encouraged them to call the ambulance. Per Jennie and Richard on a phone call today, she state pt lives in her own home, she has a relative of her nephew, she visits twice daily and helps with meals and meds. 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 Pt previously was able to ambulate without problems, heat her own meals, get to and from the bathroom. Per family, she is unable to to anything at this time. They would like pt to go to rehab. Pt does not qualify for [facility] care as pt owns a home. Nephew is attempting to work with a saturator operator, so this can have lean to place pt in a residential care.
[2023-01-19] MEDS ORDERED: ARIPIPRAZOLE5 MG PO (13:19)
[2023-01-19] MEDS ORDERED: VENLAFAXINE HC150 MG PO (13:20)
[2023-01-19] MEDS ORDERED: DILT-XR180 MG PO (13:21)
--- NOTE | 2023-01-19 14:09 | NUR ---
MEDICATION ADMINISTRATION COMPLETED. PT IS SITTING IN CHAIR WITH IV FLUIDS RUNNING. IV FLUIDS RUNNING.
--- NOTE | 2023-01-19 15:43 | NUR ---
ROUNDED ON PT. READJUSTED IN BED. PUREWICK IN PLACE. IV FLUIDS RUNNING. PT DENIES NEEDS/COMPLAINTS ATT. CALL LIGHT WITHIN REACH.
--- NOTE | 2023-01-19 17:43 | EKG ---
[facility] [address] [facility] [place] [address] Signed Poor data quality, interpretation may be adversely affected Atrial fibrillation with rapid ventricular response ST \T\ T wave abnormality, consider inferior ischemia Abnormal ECG When compared with ECG of 30-DEC-2022 22:40, Vent. rate has increased BY [address] now depressed in Inferior leads ST now depressed in Anterolateral leads T wave inversion more evident in Inferior leads T wave inversion now evident in Anterior leads Confirmed by ROS WELDON MD ([id number]) on 01/19/2023 5:43:31 PM Electronically Signed By: ROS WELDON MD 01/19/231742 PATIENT NAME: MELODY COSME Electrocardiogram DATE OF : 47 PHYSICIAN: ROS WELDON MD REPORT #: [id number] REPORT IS CONFIDENTIAL AND NOT TO BE RELEASED WITHOUT AUTHORIZATION
--- NOTE | 2023-01-19 17:50 | NUR ---
PT ORTHOSTATIC BP'S ATTEMPTED. PT WAS UNABLE TO GET OOB WITH TWO PERSON ASSIST. LAYING AND SITTING BP COMPLETED AND DOCUMENTED. PO POTASSIUM 40MEQ ORDERED. PT REFUSED 10MEQ. PT SITTING UP ATTEMPTING TO EAT DINNER. APPEARS UNMOTIVATED. IV FLUIDS STILL RUNNING. CALL LIGHT WITHIN REACH. PUREWICK IN PLACE.
--- NOTE | 2023-01-19 19:20 | NUR ---
REPORT RECEIVED FROM BO SPENCER. pt RESTING IN BED, AWAKE. TRAY TABLE CLEARED PER REQUEST, pt ATE MINIMAL AMT OF DINNER, APPROX 10%. IVF INFUSING WNL. pt DENIES NEEDS. CALL LIGHT IN REACH. BED ALARM ON.
--- NOTE | 2023-01-19 21:27 | NUR ---
pt AWAKE RESTING IN BED. ORIENTED TO SELF, EVENT (FALLS). VERY FORGETFUL, TAKES SEVERAL ATTEMPTS TO REMEMBER BIRTHDAY. ASSESSMENT COMPLETE. INCONTINENCE OF LARGE BM AND VOID. pt CLEANED, ATTENDS, CHUX, LINENS CHANGED. REPOSITIONED WITH TWO RN ASSIST, FLOATING WITH PILLOWS UNDER HIPS. NEW PUREWICK PLACED. ICE WATER REFILLED AND IN REACH. ASSISTED pt TO CALL MAIKOL JIMENEZ. BARBARA UPDATED ON PLAN OF CARE. CALL LIGHT IN REACH. BED ALARM ON.
--- NOTE | 2023-01-19 22:58 | NUR ---
CHECKED ON pt. RESTING IN BED WITH EYES CLOSED, RR 20. HR 91-100, AFIB ON TELE 2.
[2023-01-20 05:55] VITALS: BP 107/57
--- NOTE | 2023-01-20 06:01 | NUR ---
pt AWAKENS TO VOICE. INCONTINENT OF STOOL. MARTIN CARE COMPLETE. FULL LINEN CHANGE DUE TO STOOL ON LINENS, ptS HANDS CLEANED. STOOL NOTED. pt REPOSITIONED, FLOATING WITH PILLOWS UNDER HIPS. VSS. 2L OXYGEN BY NC IN PLACE. PERSONAL SUPPLIES AND CALL LIGHT IN REACH. BED ALARM ON.
--- NOTE | 2023-01-20 06:03 | NUR ---
[facility] DOWNTIME [phone]. SEE PAPER CHARTING.
--- NOTE | 2023-01-20 08:50 | NUR ---
PRN pain medication administered for 2/10 back pain with OT. Orthostatics taken at lying and sitting positions, negative. Geri OT and student Yenifer in room to assist with transfer to chair.
--- NOTE | 2023-01-20 09:00 | NUR ---
REPORT RECEIVED FROM NIGHT RN AND PT CARE RESUMED. PT. IS TREMULOUS AND GRIMMACING. SHE REPORTS SEVERE PAIN AFTER REPOSITIONING AND HAS RECEIVED PRN MED FOR PAIN RECENTLY. STUDENT AND CHARGE IN THE ROOM. ALARM ON.
--- NOTE | 2023-01-20 10:25 | NUR ---
Spoke with Li. She is more awake today. She is able to state she is at the hospital in [place]. OT has finished working with this pt. Pt cont. to state she needs to go for rehab. She gets tired walking and sits on her walker. She has fallen asleep and fell backwards from her walker.
--- NOTE | 2023-01-20 11:01 | NUR ---
PT. PAIN ASSESSED. SHE STATES IT HAS IMPROVED LONG SHE DOES NOT "SIT UP TOO MUCH". DESCRIBES PAIN SHARP AND WRAPPING AROUND BACK TO FLANKS. SHE IS NOW ORIENTED TO ALL AND ANSWERING QUESTIONS APPROPRIATELY. CALL LIGHT IN REACH AND ALARM ON.
--- NOTE | 2023-01-20 12:21 | NUR ---
PT ALERT, SITTING IN CHAIR. O2 NC IN USE, PT STATES SHE USES O2 AT HOME. 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 PT SEEMS MORE CLEAR THAN STAFF SHARED REGARDING YESTERDAY. PT REQUESTED PRAYER, ASKED IF I WOULD RETURN FOR VISIT. GAVE G.POST AND BLESSING. WILL FOLLOW
[2023-01-20 15:51] VITALS: BP 107/66
--- NOTE | 2023-01-20 16:15 | NUR ---
Called and spoke with Richard. Updated, I do not think [facility] will have a bed open until sometime next week. Could be later. Discussed I will fax chart to [facility] and check for a bed. He is in agreement with this. He cont. to work with [facility] and a laywer for pt to have funds from a house she owns for payment to a [employer] so pt can have 24 hour care or a realtime court reporter cg.
[2023-01-20] MEDS ORDERED: K-TAB ER20 MEQ PO (16:26)
[2023-01-20 17:22] VITALS: BP 119/54
--- NOTE | 2023-01-20 19:30 | NUR ---
REPORT RECEIVED FROM DAY SHIFT RN. PT RESTING IN BED. NO DISTRESS NOTED. PT ON RA, O2 SAT CHECKED AND PT WAS SATING MID 80'S. 2L NC APPLIED AND O2 SAT CAME UP TO 92%. SAFETY PRECAUTIONS MAINTAINED. CALL LIGHT WITHIN REACH. WILL CONTINUE TO MONITOR.
--- NOTE | 2023-01-20 20:10 | NUR ---
pt SLEEPING, SPOT CHECKED SPO2 86-87% ON RA. 1L OXYGEN APPLIED, SPO2 INCREASES TO 89%. 2L OXYGEN BY NC APPLIED. SPO2 INCREASES TO 92%. pt CLOSING EYES AGAIN. BED ALARM ON.
[2023-01-20 20:45] VITALS: BP 166/63
--- NOTE | 2023-01-20 20:50 | NUR ---
PT ASSESSED AND MEDICATIONS GIVEN. VSS. PUREWICK AND COLLECTION CONTAINER CHANGED. I&O CHARTED. PT CONTINUES TO WEAR O2 AT 2L NC, SATING AT 93%. PT REPOSITIONED ON 2 PILLOWS. SAFETY PRECAUTIONS MAINTAINED. CALL LIGHT WITHIN REACH. CALL LIGHT WITHIN REACH. WILL CONTINUE TO MONITOR.
--- NOTE | 2023-01-21 00:20 | NUR ---
PT ASSISTED TO BSC WITH 2 STAFF MEMBERS. PT ABLE TO GET TO BSC WITH FWW. ORTHO VS DONE. VSS. PT UNABLE TO WALK FAR BUT WAS ABLE TO PIVIT TO BSC. PT VOIDED 400ML. PT ASSISTED BACK TO BED. SAFETY PRECAUTIONS MAINTAINED. CALL LIGHT WITHIN REACH. WILL CONTINUE TO MONITOR.
--- NOTE | 2023-01-21 02:30 | NUR ---
PT RESTING IN BED WITH EYES CLOSED. PAIN MEDICATION GIVEN FOR BACK PAIN. VOIDING ADEQUETLY. SAFETY PRECAUTIONS MAINTAINED. CALL LIGHT WITHIN REACH. WILL CONTINUE TO MONITOR.
[2023-01-21 05:44] VITALS: BP 95/59
--- NOTE | 2023-01-21 06:24 | NUR ---
PT RESTED SOME DURING THE SHIFT. PT GOT UP X2 TO THE BSC AND VOIDED GOOD AMOUNTS EACH TIME. O2 AT 2L NC REMAINED IN PLACE THROUGHOUT SHIFT. VSS. OXYCODONE GIVEN ONCE FOR PAIN. SAFETY PRECAUTIONS MAINTAINED. PT UP IN CHAIR THIS A.M. CALL LIGHT NICO HURD. WILL CONTINUE TO MONITOR.
--- NOTE | 2023-01-21 07:42 | NUR ---
Faxed Face sheet, H&P progress notes, med list, PT/OT notes to Sarita at [facility]. NOtified by Rn pt is no longer incontinent. Texted Sarita update pt not incontinent and has cg. Pt will dc to home on dc after rehab.
[2023-01-21 08:37] VITALS: BP 127/48
--- NOTE | 2023-01-21 09:30 | NUR ---
Notified by Sarita at [facility] they are declinign this pt.
--- NOTE | 2023-01-21 11:00 | NUR ---
Received a call from Yuko at [facility]. She will visit tomorrow to evaluate Li for placement.
--- NOTE | 2023-01-21 13:13 | NUR ---
PT SITTING IN CHAIR, SAID SHE IS FEELING BETTER TODAY. MENTIONED SHE HAD A PHONE CALL FROM HER [employer]. PT ALSO MENTIONED SHE HAD JUST LOST A G.SON THAT SHE GREATLY MISSED.HAD GOOD VISIT, PT REQUESTED PRAYER. ASKED IF I COULD VISIT AGAIN. GAVE BLESSING AND WILL FOLLOW
[2023-01-21 13:56] VITALS: BP 115/57
--- NOTE | 2023-01-21 14:42 | NUR ---
PATIENT IN BED RESTING, EYES CLOSED, RESPIRATIONS EVEN AND NON LABORED. PT CLOSE TO RN STATION. CALL LIGHT WITHIN REACH.
[2023-01-21 15:59] VITALS: BP 122/64
--- NOTE | 2023-01-21 19:02 | NUR ---
REPORT RECEIVED FROM BO WELLS. PT SITTING UP IN BED AND RESPONDS WHEN ADDRESSED. PT REQUESTING A ZIP LOC BAG FOR SALEEM. ZIP LOC BAG PROVIDED. PT DENIES ANY OTHER NEEDS AT THIS TIME. CALL LIGHT IN REACH. BED ALARM ON.
--- NOTE | 2023-01-21 20:30 | NUR ---
pt SEEN SQUIRMING AROUND IN BED, REPORTS NEED TO GET OOB TO VOID. pt VERY SLOW MOVING BUT ABLE TO GET OOB WITH MINIMAL ASSIST AND STOOD AND STAND PIVOTED TO BSC WITH FWW. pt VOIDED 400MLS, UNABLE TO HAVE BM. REQUESTING POSSIBLE SENNA OR MIRALAX, PRIMARY RN CHESLIE UPDATED. pt BACK IN BED, BED ALARM ON AND CALL LIGHT IN REACH. FRESH WATER PROVIDED AND TV ON [employer]. NO ADDITIONAL NEEDS, pt REMAINS IN VIEW OF RN STATION.
[2023-01-21 21:11] VITALS: BP 116/58
--- NOTE | 2023-01-21 21:30 | NUR ---
IN TO ADMINISTER MEDICATIONS, SEE MAR. PT TAKES PO MEDICATIONS WITH NO ISSUES. PT REPORTING PAIN 7/10 IN BACK. PRN PAIN MEDICATION ADMINISTERED, SEE MAR. VITALS AND I&Os COMPLETE. ASSESSMENT COMPLETE. LUNG SOUNDS CLEAR IN RUL AND KRYSTINA. CRACKLES IN RLL AND LLL. BOWEL TONES ACTIVE. HEART TONES IRREGULAR. EDEMA NOTED TO PTs BLE. LOTION TO PTs BACK AND FEET APPLIED PER PT REQUEST. PT DENIES ANY OTHER NEEDS AT THIS TIME. CALL LIGHT IN REACH. BED ALARM ON.
--- NOTE | 2023-01-21 22:42 | NUR ---
NIO FOR BID SENNA PO ORDERED PER REQUEST OF PRIMARY RN SHANNA. pt REQUESTED PO SENNA EARLIER IN THE EVENING D/T FEELING CONSTIPATED.
--- NOTE | 2023-01-21 23:08 | NUR ---
IN TO ROUND ON PT. PT RESTING IN BED SEMI-FOWLERS. EYES CLOSED. RR EVEN AND UNLBAORED. SPOT CHECKED PTs O2 SATS AND O2 SATS AT 91% ON RA. PT AWAKENS AND O2 SATS INCREASE TO 94% ON RA. OFFERED PT SENOKOT. PT ACCEPTS. SENOKOT ADMINISTERED, SEE MAR. PT TAKES PO MEDICATION WITH NO ISSUES. PT DENIES ANY OTHER NEEDS AT THIS TIME. CALL LIGHT IN REACH. BED ALARM ON.
--- NOTE | 2023-01-22 03:34 | NUR ---
IN TO ROUND ON PT. PT RESTING IN BED ON LEFT SIDE LOOKING AT MENU. PT REPORTING PAIN 4/10 AND DENIES PRN PAIN MEDICAITON WHEN OFFERED. PT STATES "I MAYBE BETTER WAIT UNTIL AROUND BREAKFAST." PT DENIES ANY OTHER NEEDS AT THIS TIME. CALL LIGHT IN REACH. BED ALARM ON.
--- NOTE | 2023-01-22 03:34 | NUR ---
PT CALLED TO GET UP TO THE BSC. PT VOIDED , HELPED PT WIPE HERSELF, ATTENDS WAS CHANGED. PT ASSISTED BACK TO BED USING SPINAL PRECAUTIONS. SHE WAS THEN PLACED ON HER LEFT SIDE WITH PILLOW SUPPORT. SHE WANTS TO HAVE A BM BUT FEELS UNABLE . SHE WAS ENCOURAGED TO ORDER OATMEAL, PRUNES, FOODS WITH FIBER. SHE HAS A MENU. PT IS WATCHING [place] ON TV.
--- NOTE | 2023-01-22 04:29 | NUR ---
IN TO ROUND ON PT. PT RESTING IN BED WITH EYES CLOSED. RR EVEN AND UNLABORED. SPOT CHECKED PTs O2 SATS. O2 SATS 90% ON RA. PT CONTINUES TO REST WITH EYES CLOSED. RR EVEN AND UNLBAORED. NO NEEDS IDENTIFIED AT THIS TIME. CALL LIGHT IN REACH. BED ALARM ON.
[2023-01-22 05:19] VITALS: BP 128/60
--- NOTE | 2023-01-22 05:19 | NUR ---
IN TO ANSWER CALL LIGHT. PT REQUESTING TO ORDER FRUIT WITH BREAKFAST. WILL CALL DOWN WHEN DIETARY IS IN HOUSE. VITALS AND I&Os COMPLETE. PT REPORTING PAIN 4/10 IN BACK. PT REQUESTING PRN PAIN MEDICATION BE ADMINISTERED BEFORE BREAKFAST, BUT NOT AT THIS TIME. ASSESSMENT COMPLETE. LUNG SOUNDS CLEAR IN RUL AND KRYSTINA. CRACKLES IN RLL AND LLL. BOWEL TONES ACTIVE. HEART TONES IRREGULAR. PT DENIES ANY OTHER NEEDS AT THIS TIME. CALL LIGHT IN REACH. BED ALARM ON.
--- NOTE | 2023-01-22 06:14 | NUR ---
DIETARY CALLED TO ORDER FRUIT FOR PT WITH BREAKFAST.
--- NOTE | 2023-01-22 06:59 | NUR ---
DUE TO GENERATOR TEST SHUTTING COMPUTER DOWN PRIOR TO LOGGING OFF Zady. NO OVERHEAD BROADCAST TO NOTIFY TO LOG OFF. LOCKED OUT OF PT ASSESSMENT. IT NOTIFIED.
[2023-01-22 08:00] VITALS: BP 131/67
--- NOTE | 2023-01-22 09:00 | NUR ---
REPORT RECEIVED FROM NIGHT RN AND PT CARE RESUMED. PT. IS ALERT AND ORIENTED TO ALL BUT DATE. SHE C/O PAIN AND WAS ADMIN. PRN MED. ASSESSMENT COMPLETED. PT. IS EATING WELL AND DENIES FURHTER NEEDS.
--- NOTE | 2023-01-22 10:08 | NUR ---
SPOKE TO PATIENT ABOUT HER PLAN OF CARE.PATIENT WILL VISIT TODAY WITH [facility] IN [place]. PATIENT IS HOPING TO BE ABLE TO GO TO SNF TODAY IF EXCEPTED FOR PLACEMENT.
--- NOTE | 2023-01-22 10:59 | NUR ---
CONNECTED WITH PT IN [facility] SHE WAS WORKING WITH Jennifer WOODSON. GAVE SUPPORT AND ENCOURAGEMENT TO PT. SHE THANKED ME, SAID CHINTAN IS WORKING HER HARD-WITH A GIGGLE. GAVE BLESSING AND WILL FOLLOW
[2023-01-22 14:21] VITALS: BP 114/54
--- NOTE | 2023-01-22 15:18 | NUR ---
DARLIN MET WITH PATIENT. KASIE SAID PATIENT IS A GOOD FIT FOR THE SNF. UNABLE TO GET AUTH. AT THIS TIME. KASIE WILL TRY AGAIN WEDNESDAY. IN A HOLDING PATTERN, WAITING ON INSURANCE COMPANY TO OK.
--- NOTE | 2023-01-22 17:10 | NUR ---
PT CALLED FOR ASSISTANCE TO USE THE RESTROOM. SHE WAS ABLE TO AMBULATE FROM HER RECLINER TO THE BATHROOM W/1PA & FWW. PT STEADY ON FEET, NO COMPLAINTS OF PAIN OR DISCOMFORT WHEN AMBULATING. PT ABLE TO VOID/BM USING TOILET, SHE THEN TX FROM TOILET TO SHOWER CHAIR W/1 PA. PT ABLE TO ASSIST W/SHOWER CARES ABOUT 85%. NEW GOWN, SOCKS, BRIEF, CHAIR LINENS. PT ABLE TO AMBULATE BACK TO RECLINER, FEET ELEVATED. WARM BLANKETS GIVEN, TABLE SET UP FOR DINNER. CHAIR ALARM SET. CALL LIGHT IN REACH. PT SEEMS CONTENT EATING A SNACK & WATCHING NEWS. NO OTHER NEEDS AT THIS TIME.
[2023-01-22 18:41] VITALS: BP 105/88
--- NOTE | 2023-01-22 19:10 | NUR ---
REPORT RECEIVED FROM BO BEARD. PT SITTING UP IN CHAIR. PT REQUESTING BED SHEETS BE MADE. BED SHEETS PULLED UP ON BED PER PT REQUESET. PT DENIES ANY OTHER NEEDS. CALL LIGHT IN REACH. CHAIR ALARM ON.
[2023-01-22 20:14] VITALS: BP 108/65
--- NOTE | 2023-01-22 20:44 | NUR ---
THIS RN ADMINISTERED SCHEDULED MEDS. PT HAD NO DIFFICULTY TAKING MEDS. WALKED TO THE BATHROOM W/ FWW, 1PA. PT COMPLAINED OF LOWER BACK PAIN 5/10, PRN PAIN MEDICATION ADMINSTERED (PER EMAR). BACK IN BED. BED ALARM ON FOR SAFETY, CALL LIGHT IN REACH.
--- NOTE | 2023-01-22 21:07 | NUR ---
IN TO ROUND ON PT. PT LAYING IN BED WATCHING TV. RR EVEN AND UNLABORED. ASKED PT IF PT IS HAVING ANY PAIN. PT STATES "SHE JUST GAVE ME A PAIN PILL WHEN SHE WAS IN HERE." ASSESSMENT COMPLETE. LUNG SOUNDS CLEAR IN RUL, KRYSTINA AND RLL. CRACKLES IN LLL. BOWEL TONES ACTIVE. HEAR TONES IRREGULAR. PT REQUESTING BARRIER CREAM APPLIED TO LEFT BUTTOCK. BARRIER CREAM APPLIED. REDNESS NOTED. ALSO NOTED PT WAS SCRATCHING AREA. ASKED PT WHERE WE ARE RIGHT NOW PT STATES "IN THE [facility] I THINK." INFORMED PT WE ARE AT [facility]. ASKED PT WHAT THE DATE IS PT STATES " I THINK." ASKED PT WHAT MONTH IT IS PT STATES "JANUARY." ASKED PT WHAT YEAR IT IS PT STATES "24." PT A&O TO SELF AND TOWN. PT DENIES ANY OTHER NEEDS AT THIS TIME. CALL LIGHT IN REACH. BED ALARM ON.
--- NOTE | 2023-01-22 23:11 | NUR ---
IN TO ROUND ON PT. PT LAYING IN BED WATCHING TV. PT REPORTING PAIN 1/10 IN BACK. PT DENIES PRN PAIN MEDICATION AT THIS TIME. PT DENIES ANY OTHER NEEDS AT THIS TIME. CALL LIGHT IN REACH. BED ALARM ON.
--- NOTE | 2023-01-23 02:38 | NUR ---
IN TO ANSWER CALL LIGHT. PT REQUESTING TOILETING. 1PA WITH FWW FROM BED TO BSC. PT REPORTING PAIN 10/10 IN RIGHT HIP. PRN PAIN MEDICATION ADMINISTERED, SEE MAR. DANUTA RN IN TO ASSIST WITH GETTING PT BACK TO BED. 2PA WITH FWW FROM BSC TO BED. HOT PACK TO RIGHT HIP APPLIED. ASSESSMENT COMPLETE. LUNG SOUNDS CLEAR IN RUL AND [place]. DIMINISHED IN LLL. CRACKLES IN RLL. BOWEL TONES ACTIVE. HEART TONES IRREGULAR. ICE WATER PROVIDED. PT DENIES ANY OTHER NEEDS AT THIS TIME. CALL LIGHT IN REACH. BED ALARM ON.
--- NOTE | 2023-01-23 04:40 | NUR ---
IN TO ANSWER CALL LIGHT. PT REQUESTING TOILETING. 1PA WITH FWW FROM BED TO BSC. PT REQUESTING PRN TYLENOL. PRN TYLENOL ADMINISTERD, SEE MAR. PT TAKES PO MEDICATION WITH NO ISSUES. PT REQUESTING TO SIT IN RECLINER. 1PA WITH FWW FROM BSC TO RECLINER. PT LEGS ELEVATED IN RECLINER. PT DENIES ANY OTHER NEEDS AT THIS TIME. CALL LIGHT IN REACH. CHAIR ALARM ON.
[2023-01-23 05:02] VITALS: BP 116/55
[2023-01-23 10:41] VITALS: BP 106/54
--- NOTE | 2023-01-23 12:15 | NUR ---
Patient awake sitting up in chair, no distress. Patient remains close to RN station. Call light within reach of patient.
--- NOTE | 2023-01-23 14:00 | NUR ---
PATIENT UP TO RESTROOM, SBA WITH WALKER. PATIENT HAD A LARGE FORMED STOOL. PT BACK TO CHAIR. FRESH WATER PROVIDED. PERSONAL SUPPLIES AND CALL LIGHT WITHIN REACH.
[2023-01-23 14:11] VITALS: BP 110/62
[2023-01-23 18:52] VITALS: BP 106/54
--- NOTE | 2023-01-23 19:08 | NUR ---
REPORT RECEIVED FROM [facility]. PT SITTING UP IN RECLINER WATCHING TV. PT REQUESTING WARM BLANKET, WARM BLANKET PROVIDED. PT DENIES ANY OTHER NEEDS AT THIS TIME. CALL LIGHT IN REACH. CHAIR ALARM ON.
[2023-01-23 20:41] VITALS: BP 121/70
--- NOTE | 2023-01-23 20:46 | NUR ---
PT ASSISTED UP TO THE BATHROOM AND INTO BED WITH 1PA AND FWW. PT TOLERATED WELL, ASSISTED TO CALL HER NEPHEW WITH ROOM PHONE. PT DENIES FURTHER NEEDS AT THIS TIME. BED ALARM ACTIVE. CALL LIGHT IN REACH. ROOM IN VIEW OF RN STATION.
--- NOTE | 2023-01-23 21:18 | NUR ---
IN TO ADMINISTER MEDICATIONS, SEE MAR. PT TAKES PO MEDICATIONS WITH NO ISSUES. ASSESSMENT COMPLETE. LUNG SOUNDS CLEAR IN RUL AND [place]RYST[place]. CRACKLES IN RLL AND LLL. BOWEL TONES ACTIVE. HEART TONES IRREGULAR. PT REPORTING PAIN 6/10 IN BACK AND RIGHT HIP. PT REQUESTING PRN PAIN MEDICATION. WILL RETURN WITH PAIN MEDICATION. WATER PROVIDED. PT DENIES ANY OTHER NEEDS AT THIS TIME. CALL LIGHT IN REACH. BED ALARM ON.
--- NOTE | 2023-01-23 21:24 | NUR ---
PRN PAIN MEDICATION ADMINISTERED, SEE MAR. PT TAKES PO MEDICATION WITH NO ISSUES. PILLOW PLACED UNDER PTs LEGS PER PT REQUEST. PT DENIES ANY OTHER NEEDS AT THIS TIME. CALL LIGHT IN REACH. BED ALARM ON.
--- NOTE | 2023-01-23 22:16 | NUR ---
HOT PACK PROVIDED PER PT REQUEST. HOT PACK PLACED ON PTs RIGHT HIP OVER GOWN. PT DENIES ANY OTHER NEEDS AT THIS TIME. CALL LIGHT IN REACH. BED ALARM ON.
--- NOTE | 2023-01-23 23:36 | NUR ---
IN TO ROUND ON PT. PT RESTING IN BED SEMI-FOWLERS EYES CLOSED RR EVEN AND UNLABORED. SPOT CHECK PT O2 SATS PT IS ON RA. O2 SATS 91% ON RA WHILE RESTING IN BED WITH EYES CLOSED. RR EVEN AND UNLABORED. PT AWAKENS WHEN PULSE OX IS TAKEN OFF PTs FINGER. PT DENIES ANY NEEDS AT THIS TIME. CALL LIGHT IN REACH. BED ALARM ON.
--- NOTE | 2023-01-24 02:10 | NUR ---
IN TO ANSWER CALL LIGHT. PT REQUESTING TOILETING. SBA WITH FWW FROM BED TO BSC. VOID NOTED. PT REQUESTING TO SIT IN CHAIR. SBA FROM BSC TO CHAIR. BLANKET PROVIDED. ICE WATER PROVIDED. ASSESSMENT COMPLETE. LUNG SOUNDS CLEAR IN RUL AND KRYSTINA. DIMINISHED IN RLL AND LLL. CRACKLES IN RLL. BOWEL TONES ACTIVE. PT DENIES ANY OTHER NEEDS AT THIS TIME. CALL LIGHT IN REACH. CHAIR ALARM ON.
[2023-01-24 05:48] VITALS: BP 100/55
--- NOTE | 2023-01-24 05:54 | NUR ---
IN TO ROUND ON PT. PT SITTING UP IN RECLINER WITH BLE ELEVATED IN RECLINER. PT RESPONDS WHEN ADDRESSED. VITALS COMPLETE. PT REPORTING PAIN 6/10 IN BACK AND HIP. PRN PAIN MEDICATION ADMINISTERED, SEE MAR. PT TAKES PO MEDICATION WITH NO ISSUES. ASKED PT WHAT THE DATE IS PT STATES "WELL I KNOW IT IS WEDNESDAY, BUT I DON'T KNOW. . . THE MAYBE. ." ASKED PT WHAT MONTH IT IS PT STATES "THE MONTH IS JANUARY." ASKED PT WHAT YEAR IT IS PT STATES "." ASKED PT WHY PT IS IN THE HOSPITAL PT STATES "BECAUSE I WAS HAVING A LOT OF FALLS AND GOING CRAZY." ASKED PT WHAT TOWN WE ARE IN PT STATES "RIGHT NOW WE ARE IN [place]." PT DENIES ANY OTHER NEEDS AT THIS TIME. CALL LIGHT IN REACH. CHAIR ALARM ON.
--- NOTE | 2023-01-24 06:15 | NUR ---
IN TO ASSIST PT WITH ORDERING BREAKFAST. DIETARY CALLED. PT REQUESTING TOILETING. SBA WITH FWW FROM CHAIR TO BSC. VOID NOTED. SBA FROM BSC BACK TO CHAIR. PT DENIES ANY OTHER NEEDS AT THIS TIME. CALL LIGHT IN REACH. CHAIR ALARM ON.
--- NOTE | 2023-01-24 07:33 | NUR ---
RECIEVED SHIFT REPORT. PT AWAKE IN BED. PT BELIEVES IT IS NIGHT TIME. REORIENTED PT TO TIME. CHAIR ALARM ON FOR SAFETY. CALL LIGHT IN REACH.
[2023-01-24 09:27] VITALS: BP 103/48
--- NOTE | 2023-01-24 09:45 | NUR ---
MORNING ASSESSMENT COMPLETE. PT RATES PAIN BACK/LEG PAIN 03/15. PT AWARE OF PRN PAIN MEDICATION SCHEDULE. LUNG SOUNDS CLEAR BILAT UPPER, COARSE BILAT LOWER. DENIES FURTHER NEEDS. CALL LIGHT IN REACH. CHAIR ALARM ON FOR SAFETY.
--- NOTE | 2023-01-24 11:57 | NUR ---
PT AWAKE IN CHAIR, DENIES FURTHER NEEDS. CALL LIGHT IN REACH. CHAIR ALARM ON FOR SAFETY.
[2023-01-24 13:47] VITALS: BP 104/52
--- NOTE | 2023-01-24 14:51 | NUR ---
MD NOTIFIED WITH URINE RESULTS. MD ORDERS TO FOLLOW.
--- NOTE | 2023-01-24 15:15 | NUR ---
AFTERNOON ASSESSMENT COMPLETE. PT DISORIENTED TO EVENT. PT HAS EPISODES OF CONFUSION. PT WILL TALK ON THE PHONE WITH NO ONE OF THE OTHER END. CALL LIGHT IN REACH. DENIES PAIN.
--- NOTE | 2023-01-24 15:31 | NUR ---
PRN PAIN MEDICATION ADMINISTERED (PER EMAR) FOR 6/10 PAIN. DENIES FURTHER NEEDS. CALL LIGHT IN REACH.
--- NOTE | 2023-01-24 17:11 | NUR ---
PT SITTING IN RECLINER, ON PHONE. CALL LIGHT IN REACH.
[2023-01-24 18:06] VITALS: BP 98/48
[2023-01-24 20:57] VITALS: BP 100/48
--- NOTE | 2023-01-24 22:31 | NUR ---
PT ROUNDING. PT RESTING IN CHAIR WITH EYES CLOSED. RESPIRATIONS EVEN AND UNLABORED. PT APPEARS TO BE SLEEPING. 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 CALL LIGHT IN REACH. ROOM IN VIEW OF RN STATION.
--- NOTE | 2023-01-25 00:44 | NUR ---
PT ROUNDING. PT RESTING IN CHAIR WITH EYES CLOSED. RESPIRATIONS EVEN AND UNLABORED. PT APPEARS TO BE SLEEPING. CALL LIGHT IN REACH.
--- NOTE | 2023-01-25 01:58 | NUR ---
PT ROUNDING. PT RESTING IN CHAIR AWAKE, WATCHING TV. CALL LIGHT IN REACH.
--- NOTE | 2023-01-25 02:21 | NUR ---
PT ASSESSMENT COMPLETE. PT UP TO BATHROOM AND BACK TO BED WITH 1PA AND FWW. TOLERATED WELL. PT WOULD LIKE TO CONTINUE TO SIT UP IN THE CHAIR, STATES SHE IS MOST COMFORTABLE THERE. PT RATES PAIN TO BLE'S 6/10. PRN ADMINISTERED, SEE EMAR. PT DENIES NAUSEA OR SOB. LUNG SOUNDS COARSE TO BILATERAL LOWER LOBES. NO COUGH NOTED DURING ASSESSMENT. HR IRREGULAR. BLE'S WITH GENERALIZED EDEMA PRESENT. IV SL. PT DENIES FURTHER NEEDS AT THIS TIME. STATES SHE WILL WATCH TV FOR A WHILE AND MAYBE FALL BACK TO SLEEP. CALL LIGHTIN REACH. ROOM IN VIEW OF RN STATION WITH CURTAIN OPEN.
[2023-01-25 06:31] VITALS: BP 126/32
--- NOTE | 2023-01-25 07:28 | NUR ---
PT SITTING UP IN THE CHAIR ALERT AND INTERACTIVE AT TIME OF SHIFT REPORT. DENIES DISCOMFORTS OR NEED OF ANYTHING. CALL LIGHT AND FRESH H20 AT CHAIR SIDE
[2023-01-25 09:06] VITALS: BP 96/45
--- NOTE | 2023-01-25 10:32 | NUR ---
PT HAS BEEN UP IN THE CHAIR ALL MORNING. TOLERATES MOST OF HER BREAKFAST. DENIES PAIN OR DISCOMFORTS. UP TO WORK WITH P/T AT THIS TIME
--- NOTE | 2023-01-25 12:01 | NUR ---
PT SITTING UP IN THE CHAIR VISITOR PRESENT X1. DENIES NEEDS OR DISCOMFORTS
[2023-01-25 13:28] VITALS: BP 100/50
--- NOTE | 2023-01-25 13:52 | NUR ---
SPOKE TO PATIENT ABOUT THE PLAN OF CARE. PATIENT WILL GO TO [facility] FOR REHAB.WHEN THE INSURANCE COMPANY APPROVES THE SNF STAY. PATIENTT UPDATED ON THE DISCHARGE PLAN OF CARE.
--- NOTE | 2023-01-25 14:27 | NUR ---
PT ALERT, ORIENTED AND VISITING WITH HER CELESTE BARNES. PT IS TO MOVED TO SNF TODAY. GAVE ENCOURAGEMENT, PT THANKED ME FOR VISITING. GAVE BLESSING
--- NOTE | 2023-01-25 15:18 | NUR ---
PT SITTING UP IN THE CHAIR READING THE NEWS PAPER TV IS PLAYING. DENIES DISCOMFORTS OR NEEDS OF AT THIS TIME
[2023-01-25 18:18] VITALS: BP 109/50
--- NOTE | 2023-01-25 18:31 | NUR ---
PT CONTINUES UP IN THE CHAIR. ASSISTED TO REPOSITION AND PILLOW PLACED UNDER HER. NO REDNESS PRESENT ON HER BOTTOM, SKIN INTACT
--- NOTE | 2023-01-25 19:34 | NUR ---
REPORT RECEIVED FROM [facility]GOING [facility]NMAR[facility]. PT SITTING UP IN CHAIR. CALL LIGHT IN REACH. ROOM IN VIEW OF RN STATION WITH CURTAIN OPEN.
[2023-01-25 19:55] VITALS: BP 113/72
--- NOTE | 2023-01-25 20:13 | NUR ---
PT ASSESSMENT COMPLETE. PT DENIES PAIN, NAUSEA, OR SOB. LUNG SOUNDS COARSE IN BILATERAL BASES. NO COUGH NOTED DURING ASSESSMENT. SAO2@ 98%. HR IRREGULAR. GENERALIZED EDEMA TO BLE'S. IV FLUSHED WITH 10 ML NS. WNL. VS OBTAINED. WNL. PT UP TO BATHROOM AND BACK TO CHAIR WITH 1 PA AND FWW. TOLERATED WELL. NEPTALI FURTHER NEEDS AT THIS TIME. CALL LIGHT IN REACH. ROOM IN VIEW OF RN STATION WITH CURTAIN OPEN.
--- NOTE | 2023-01-25 23:00 | NUR ---
CALL LIGHT ANSWERED. 1 PA USING WALKER TO THE BATHROOM AND BACK TO CHAIR. ASSISTED ON [facility] CARE. ICE CHIPS PROVIDED AND REFRESHED ICE WATER. PATIENT STATED "CHAIR IS MORE COMFORTABLE THAN IN THE BED". CALL LIGHT WITHIN REACH. NO OTHER NEEDS AT THIS TIME.
--- NOTE | 2023-01-25 23:41 | NUR ---
CALL LIGHT ANSWERED. PILLOW UNDER HER LEGS REMOVED. FOLDED BLANKET ON UNDER HER LEGS. OVER HEAD LIGHT OFF.
--- NOTE | 2023-01-26 01:20 | NUR ---
PT RESTING IN RECLINER WITH EYES CLOSED. RESPIRATIONS EVEN AND UNLABORED. PT APPEARS TO BE SLEEPING. ROOM IN VIEW OF RN STATION WITH CURTAIN OPEN. CALL LIGHT IN REACH.
--- NOTE | 2023-01-26 01:36 | NUR ---
PT ASSESSMENT COMPLETE. PT UTILIZES CALL LIGHT, REQUESTS TO USE THE BATHROOM. STATES THAT PAIN IN LEGS CONTINUES SLIGHTLY AFTER PRN ADMINISTRATION. LUNG SOUNDS COARSE IN BILATERAL LOWER LOBES. NO COUGH NOTED DURING ASSESSMENT. PT DENIES SOB. PT BACK TO CHAIR AFTER USING THE BATHROOM. DENIES FURTHER NEEDS. CALL LIGHT IN REACH. ROOM IN VIEW OF RN STATION WITH CURTAIN OPEN.
--- NOTE | 2023-01-26 02:15 | NUR ---
PT RESTING IN BED WITH EYES CLOSED. RESPIRATIONS EVEN AND UNLABORED. PT APPEARS TO BE SLEEPING. CALL LIGHT IN REACH. ROOM IN VIEW OF RN STATION WITH CURTAIN OPEN.
[2023-01-26 05:45] VITALS: BP 106/57
--- NOTE | 2023-01-26 07:41 | NUR ---
PT SITTING UP IN THE RECLINER ALERT AND INTERACTIVE AT TIME OF SHIFT REPORT. DENIES DISCOMFORTS OR NEEDS OF ANYTHING. FRESH H20 AND CALL LIGHT AT CHAIR SIDE
[2023-01-26 09:10] VITALS: BP 106/55
--- NOTE | 2023-01-26 09:47 | NUR ---
PT TOLERATES MOST OF MORNING MEAL. WORKS WITH P/T THEN RETURNS TO RECLINER WITH TV ON. PT AGREES SHE IS COMFORTABLE, DENIES NEED OF ANYTHING.
--- NOTE | 2023-01-26 11:03 | NUR ---
PT requested assistance to the bathroom and hair wash. Pt ambulated well. Pt voided and returned to chair. Hair cleaned with shower cap. Call light within reach.
[2023-01-26] MEDS ORDERED: CEFPODOXIME PR200 MG PO (11:36)
[2023-01-26] MEDS ORDERED: ACETAMINOPHEN500 MG PO (11:37)
--- NOTE | 2023-01-26 12:15 | NUR ---
UPDATED PATIENT THAT SHE WILL BE GOING TO [facility] TODAY AT 2PM. PATIENT WILL CALL HER FAMILY AND GIVE THEM A UPDTE.
--- NOTE | 2023-01-26 12:23 | NUR ---
PT IS DRESSED AND READY FOR [facility]. EATING HER LUNCH AT THIS TIME SHE DENIES QUESTIONS OR CONCERNS.
--- NOTE | 2023-01-26 13:31 | NUR ---
PT UP IN THE CHAIR DRESSED AND READY FOR TRANSPORT. DENIES QUESTIONS, NEEDS, OR CONCERNS
[2023-01-26 13:37] VITALS: BP 104/49
--- NOTE | 2023-01-26 13:53 | NUR ---
PT ALERT, ORIENTED AND SITTING IN CHAIR WAITING FOR DC SHE THINKS WILL BE TODAY. GAVE ENCOURAGEMENT AND SUPPORT, PT REQUESTED PRAYER. WILL FOLLOW
== END 2023-01-26 14:00 | DRG 682 ==
LOC: ED 18:08 → CCU 20:33 → MS 20:33
PROVIDERS: ADMIT Internal Medicine; ATTEND Family Medicine
DX: N17.9 Acute kidney failure, unspecified (principal); G93.41 Metabolic encephalopathy; N39.0 Urinary tract infection, site not specified; J96.11 Chronic respiratory failure with hypoxia; I50.32 Chronic diastolic (congestive) heart failure; Z66 Do not resuscitate; I48.91 Unspecified atrial fibrillation; R29.6 Repeated falls; E87.6 Hypokalemia; F39 Unspecified mood [affective] disorder; I95.1 Orthostatic hypotension; R40.4 Transient alteration of awareness; F03.90 Unspecified dementia, unspecified severity, without behavioral disturbance, psychotic disturbance, mood disturbance, and anxiety; G62.9 Polyneuropathy, unspecified; G89.29 Other chronic pain; M54.9 Dorsalgia, unspecified; N18.30 Chronic kidney disease, stage 3 unspecified; Z86.16 Personal history of COVID-19; Z99.81 Dependence on supplemental oxygen; Z79.01 Long term (current) use of anticoagulants; Z90.710 Acquired absence of both cervix and uterus; Z98.890 Other specified postprocedural states; Z79.899 Other long term (current) drug therapy
CPT/HCPCS: 36415; 70450; 71045; 73502; 80048; 80053; 81001; 81003; 82570; 83735; 83880; 84300; 84550; 85025; 87088; 93005; 93010; 96374; 96375; 97110; 97116; 97162; 97166; 97530; 97535; 99285-25; A9270; J3475; J3480; J7120; J7121

== ENCOUNTER 2025-03-19 09:01 | Emergency (ER) | payer OTHER, MEDICARE ==
[~2025-03-19] VITALS: Ht 152.4 cm; Wt 102.5 kg
[~2025-03-19 09:01] MED LIST changes: +ABILIFY10 MG PO; +ARIPIPRAZOLE15 MG PO; +CEFPODOXIME PR200 MG PO; +DILT-XR180 MG PO; +K-TAB10 MEQ PO; +LASIX20 MG PO; +METOPROLOL SUC200 MG PO; +SENNA-PLUS TAB1 EACH PO; +WARFARIN SODIUM5 MG PO
[2025-03-19 09:14] LABS: BASOPHILS 0.3 % (0.1-1.2); EOSINOPHILS 2.5 % (0.7-5.8); LYMPHOCYTES 39.4 % (19.3-51.7); MCH 31.6 PG (25.6-32.2); MCHC 31.8 g/dL (32.2-35.5); MCV 99.2 fL (79.4-94.8); MONOCYTES 9.2 % (4.7-12.5); NEUTROPHILS 48.4 % (34.0-71.1); RBC 3.93 M/uL (3.93-5.22)
[2025-03-19 09:24] LABS: INR 1.45 (0.80-1.30); PROTIME 16.7 Sec (11.2-14.2)
[2025-03-19 09:29] LABS: ALCOHOL, MEDICAL <3 ng/dL (<3); ALT (SGPT) 21 U/L (14-59); AST (SGOT) 11 U/L (15-37); GLOMERULAR FILTRATION RATE,EST 52 mL/min (>60); PROTEIN, TOTAL 6.9 g/dL (6.4-8.2); UREA NITROGEN 17 mg/dL (7-18)
[2025-03-19 10:30] VITALS: BP 128/74
[2025-03-19 10:33] LABS: ABO O; ANTIBODY SCREEN NEGATIVE; RH POSITIVE
== END 2025-03-19 10:32 | disposition home or self-care (01) ==
LOC: ED 09:01
PROVIDERS: Emergency Medicine
DX: Z04.3 Encounter for examination and observation following other accident (principal); Z79.01 Long term (current) use of anticoagulants; Z79.899 Other long term (current) drug therapy
CPT/HCPCS: 36415; 70450; 71045; 72125; 80053; 80307; 85025; 85610; 86850; 86900; 86901; 99284-25; G0480

== ENCOUNTER 2025-03-21 12:14 | Emergency (ER) | payer MEDICARE ==
[~2025-03-21] VITALS: Ht 152.4 cm; Wt 102.5 kg
[2025-03-21] MEDS ORDERED: SODIUM CHLORIDE 0.9% 500 ML IV PRN (12:45)
[2025-03-21 12:47] LABS: BASOPHILS 0.2 % (0.1-1.2); EOSINOPHILS 1.3 % (0.7-5.8); LYMPHOCYTES 4.2 % (19.3-51.7); MCH 30.9 PG (25.6-32.2); MCHC 31.6 g/dL (32.2-35.5); MCV 97.6 fL (79.4-94.8); MONOCYTES 5.3 % (4.7-12.5); NEUTROPHILS 88.8 % (34.0-71.1); RBC 4.57 M/uL (3.93-5.22)
[2025-03-21 12:57] LABS: INR 1.43 (0.80-1.30); PROTIME 16.5 Sec (11.2-14.2)
[2025-03-21 13:04] LABS: ALT (SGPT) 23.0 U/L (14-59); AST (SGOT) 16.0 U/L (15-37); GLOMERULAR FILTRATION RATE,EST 48.0 mL/min (>60); PROTEIN, TOTAL 7.8 g/dL (6.4-8.2); UREA NITROGEN 19.0 mg/dL (7-18)
[2025-03-21 13:30] LABS: INFLUENZA B NAA NEGATIVE (NEGATIVE); RESPIRATORY SYNCYTIAL VIR NAA NEGATIVE (NEGATIVE)
[2025-03-21 15:51] LABS: BLOOD/HGB, URINE NEGATIVE (Negative); KETONE, URINE NEGATIVE (Negative); LEUK ESTERASE, URINE NEGATIVE (negative); NITRITE, URINE NEGATIVE (negative)
[2025-03-21 17:27] VITALS: BP 138/87
== END 2025-03-21 17:27 | disposition home or self-care (01) ==
LOC: ED 12:14
PROVIDERS: Emergency Medicine
DX: R11.2 Nausea with vomiting, unspecified (principal); Z79.01 Long term (current) use of anticoagulants; Z79.899 Other long term (current) drug therapy
CPT/HCPCS: 36415; 51701; 80053; 81003; 83690; 85025; 85610; 87502; 99284-25; J2405; J7040; U0002